=== PATIENT | female | born 1980 | race Caucasian/White ===

== ENCOUNTER 2018-01-11 08:31 | Emergency (ER) | payer OTHER, SELFPAY ==
[2018-01-11 08:32] VITALS: BP 153/87; PULSE 97; RESP 20; TEMP 36.7; O2SAT 99; BMI 27.4
[2018-01-11] MEDS: HYDROcodone Bitartrate/Apap 5/325 Tablet PO (08:55)
--- NOTE | 2018-01-11 09:46 | ED.DCSUM_ITS ---
- ER Visit Summary Date of Service: 01/11/18 Chief Complaint: [Sore throat] History of Present Illness: The patient is a 37 F [presents to the emergency department chief complaint of a sore throat that started 3 days ago. Patient states that she started with a cough 4 days ago. Patient denies any fever. Patient describes pressure in her ears. Patient tells me that 2 of her children had influenza couple weeks ago and one of her children had strep throat. Cough is productive of mostly clear sputum.] Physical Examination: [HEENT-PERRLA, EOMI. Cranial nerves II through XII grossly intact. TMs clear. Mucous membranes moist. No adenopathy. Mild pharyngeal erythema without evidence of exudates. No trismus. No stridor. Cardiovascular-regular rate and rhythm without murmur or ectopy Lungs-clear to auscultation, chest wall stable without crepitus or subcu emphysema Abdomen-normoactive bowel sounds, soft, nontender, no rebound or rigidity, no peritoneal signs. Extremities-intact ?4, normal range of motion, normal pulses, atraumatic] Test Results: [Rapid strep screen was negative] Emergency Department Course and Treatment: [Patient was medicated with Decadron and Phoenix] Treatment Plan: [Will be given a prescription for Phoenix for pain.] Disposition: [Discharged to home in stable condition. Patient advised to return if difficulty swallowing own secretions, difficulty breathing, or condition should worsen in any way.] Impression: [Viral pharyngitis] This note was generated with [employer] dictation software. It may contain incorrect words, spelling, and punctuation that were not noted in review of the chart prior to signing ED Disposition - Plan for ED Patient: Chief Complaint: Sore Throat Referrals: Care Physician,No Primary [Primary Care Provider] -
--- NOTE | 2018-01-11 09:48 | DCINST.ED_ITS ---
ED Disposition - Plan for ED Patient: Chief Complaint: Sore Throat Instructions: ED Pharyngitis Viral Prescriptions: Hydrocodone Bitart/Apap 5-325 [[place] 5/325] 1 - 2 tab PO Q4H PRN PRN 3 Days #12 tab PRN Reason: Pain Referrals: Care Physician,No Primary [Primary Care Provider] - Luis Fernando Gary III, MD [STAFF PHYSICIAN] - 3-5 Days
== END 2018-01-11 10:14 | disposition home or self-care (01) ==
PROVIDERS: Emergency Provider Emergency Medicine
DX: J02.9 Acute pharyngitis, unspecified (principal); Z72.0 Tobacco use
CPT/HCPCS: 87880; 99283

== ENCOUNTER 2022-02-10 15:41 | Emergency (ER) | payer SELFPAY ==
[2022-02-10 15:42] VITALS: BP 153/88; PULSE 70; RESP 16; TEMP 36; O2SAT 98; BMI 29.7
--- NOTE | 2022-02-10 16:00 | ED.VIS.FALL ---
HPI HPI - Fall History of Present Illness Chief Complaint: Fall Informant: patient Occured/Mechanism Occurred: Days (2) Mechanism/Context: Yes same level fall Narrative: Syncopal episode after standing Pain/Injury Location: Head Pain Location: head Quality of Pain: Dull Current Severity: Mild Maximum Severity: Mild Worsened by: Nothing Relieved by: Nothing Associated Symptoms Associated Symptoms: Negative for Parasthesias, Weakness, Loss of function, Inability to ambulate, Loss of consciousness and Amnesia Narrative Narrative: Patient presents with a syncopal episode that occurred 2 days ago. Patient states she stood up from the couch where she was laying down. Patient states she felt lightheaded. Patient fell backwards and hit her head. Patient thinks she was only unconscious for a few seconds. Patient states she has pain in the occipital part of her head as well as the frontal part of her head. Patient describes it as dull and mild. Patient states nothing makes it better nothing makes it worse. Patient denies any paresthesias or weakness. Patient denies any other injuries. PFSH PFSH Medical History no medical history no medical history Home Medications hydrocodone-acetaminophen 1 - 2 tab PO Q4H PRN PRN 3 Days #12 tab 01/11/18 [Rx Last Taken Unknown] Allergy/AdvReac Type Severity Reaction Status Date / Time No Known Allergies Allergy Verified 01/11/18 08:37 Surgical History (Updated 02/10/22 @ 16:[address] Marcos Fuller DO) H/O section Social History Smoking Status: Light Smoker (<10/day) ROS ROS ED Constitutional Constitutional ED: Denies chills or fever(s) Eyes Eyes: Denies blurry vision or change in vision ENT ENT ED: Denies rhinorrhea or sore throat Cardiovascular Cardiovascular: Denies chest pain or palpitations Respiratory/Chest Respiratory/Chest: Denies cough or dyspnea Gastrointestinal Gastrointestinal: Denies nausea or vomiting Genitourinary Genitourinary ED: Denies dysuria or hematuria Musculoskeletal Musculoskeletal: Denies back pain or neck pain Integumentary Denies abscess or rash Neurologic Neurologic: Reports headache(s); Denies weakness Allergic/Immunologic Allergic/Immunologic ED: Denies mouth swelling or urticaria EXAM Physical Exam Const Vital Signs: 02/10/22 15:42 02/10/22 15:49 Temperature 96.8 F L Temperature Source Temporal Pulse Rate 70 Respiratory Rate 16 Respiratory Effort Normal Respiratory Depth Normal Respiratory Pattern Normal Blood Pressure 153/88 H Blood Pressure Mean 109 Pulse Ox 98 Oxygen Delivery Method Room Air Room Air Positive well nourished and well developed General Appearance ED: well developed HEENT Reports moist mucous membranes HEENT Narrative: There is mild tenderness over the occiput. There is no bony crepitance or step-off. There is no edema or ecchymosis. There is no hematoma noted. tenderness Neck supple and no JVD Resp normal respiratory effort and clear to auscultation bilaterally Cardio regular rate, regular rhythm and no murmurs GI normal to inspection, nondistended, normoactive bowel sounds and non-tender Palpation: soft Extremity normal to inspection General Extremety ED: Negative for edema or tenderness General Extremity: Negative for edema Neuro oriented x3, CN's II-XII intact bilaterally and no sensory deficits noted Sensorium / Orientation: alert Motor Exam: strength 5/5 throughout Psych mental status grossly normal Skin no rashes or lesions noted MDM MDM MDM Narrative Medical decision making narrative: EKG was obtained. On my interpretation, it showed a normal sinus rhythm with a rate of 66. OH interval, QRS interval, and QTc intervals were all normal. [place] was normal. There are no acute ST or T wave changes. CT scan of the brain was obtained. There is no acute intracranial abnormality. This was interpreted by the radiologist and reviewed by myself. CBC was within normal limits. Comprehensive metabolic profile was within normal limits. Patient feels better on reevaluation. Patient wants to go home. Patient will be instructed to follow-up with her primary care physician in 5 to 7 days for reevaluation. Patient was instructed to drink plenty of fluids. Patient understood and was agreeable with the plan. All questions were answered. Lab Data Attestation: I reviewed the patient's lab results. Labs: Laboratory Results - last 24 hr 02/10/22 02/10/22 16:15 16:15 WBC 9.4 RBC 4.56 Hgb 14.5 Hct 41.7 MCV 91.4 MCH 31.8 MCHC 34.8 RDW Std Deviation 44.0 H RDW Coeff of [place] 13.0 Plt Count 248 MPV 10.3 Immature Gran % (Auto) 0.300 Neut % (Auto) 66.2 Lymph % (Auto) 23.5 Burt % (Auto) 8.3 Eos % (Auto) 1.4 Baso % (Auto) 0.3 Absolute Neuts (auto) 6.2 Absolute Lymphs (auto) 2.21 Nucleated RBC % 0 Sodium 140 Potassium 3.6 Chloride 110 H Carbon Dioxide 25.0 Anion Gap 5 BUN 15 Creatinine 0.85 Estim Creat Clear Calc 75.21 Est GFR (MDRD) Af Amer 95 Est GFR (MDRD) Non-Af 79 BUN/Creatinine Ratio 17.7 Glucose 80 Calcium 9.2 Total Bilirubin 0.30 AST 14 L ALT 21 Alkaline Phosphatase 63 Total Protein 7.4 Albumin 4.1 Globulin 3.3 Albumin/Globulin Ratio 1.2 Radiography Diagnostic Testing: Clinical Impression(s) from Imaging Studies Brain CT 02/10/22 16:03 IMPRESSION: Normal unenhanced CT scan of the brain. Electronically Signed: Mateo Marx MD (Brooks) at 16:39 EDT Reading Location ID and State: [address] [place] [address] , Service support , EKG Initial EKG: Attestation: I personally reviewed and interpreted this EKG as follows: Interpretation: Sinus Rhythm (66) and No Acute Injury Pattern Discharge Plan Triage Chief Complaint: Fall ED Provider: Marcos Fuller Dx/Rx/DC Orders Clinical Impression: Syncope, Headache Instructions: ED Fainting, Uncertain Cause Prescriptions: No Action hydrocodone-acetaminophen 1 TABLET tablet 1 - 2 tab PO Q4H PRN PRN (Reason: Pain) 3 Days Qty: 12 RF: 0 Primary Care Provider: Tamir Read Referrals: Tamir Read MD [Primary Care Provider] - 5-7 Days Disposition Disposition: Home, Self Care
--- NOTE | 2022-02-10 16:03 | CT_ITS ---
STUDY: CT BRAIN WITHOUT CONTRAST REASON FOR EXAM: Female, 41 years old. Syncope RADIATION DOSAGE (If Supplied By Facility): CTDIvol = ( 44.99 ) mGy, DLP = ( 762.36 ) mGycm TECHNIQUE: Transaxial CT imaging of the brain was performed without administration of intravenous contrast material. Individualized dose optimization techniques were used for this CT. COMPARISON: No relevant priors. FINDINGS: Normal soft tissue structures. Normal calvarium. Normal size ventricles and extra-axial spaces for the patient''s age. Normal white matter tracts of the cerebral hemispheres. Normal basal ganglia and thalami. Normal brainstem. Normal cerebellum. There is no intracranial hemorrhage. There are no findings of an acute ischemic infarction. Normal visualized paranasal sinuses. CT/Brain/Head without Contrast IMPRESSION: Normal unenhanced CT scan of the brain. Electronically Signed: Mateo Marx MD (Brooks) at 16:39 EDT Reading Location ID and State: [address] [place] , Service support ,
--- NOTE | 2022-02-10 16:03 | EKG12_ITS ---
Test Reason : FALL Blood Pressure : / mmHG Vent. Rate : 066 BPM Atrial Rate : 066 BPM P-R Int : 110 ms QRS Dur : 096 ms QT Int : 406 ms P-R-T Axes : 070 058 050 degrees QTc Int : 425 ms Sinus rhythm with sinus arrhythmia with short DC Otherwise normal ECG Confirmed by CHARI JONES, SHEYLA ([id number]), makeup editor GINA SIMMS ([id number]) on 02/13/2022 8:55:40 AM Referred By: LUIS Confirmed By:SHEYLA MARCELINO MD
--- NOTE | 2022-02-10 16:12 | NURSING ---
NO OLD EKGS
[2022-02-10 16:25] LABS: Absolute Lymphocyte Count 2.21 X10^3/uL (0.83-4.51); Absolute Neutrophil Count 6.2 X10^3/uL (2.0-7.7); Basophil# 0.03 X10^3/uL; Basophil% 0.3 % (0-1); Eosinophil# 0.13 X10^3/uL; Eosinophils% 1.4 % (0-5); Hematocrit 41.7 % (37-47); Hemoglobin 14.5 g/dL (12.0-15.0); Lymphocyte # 2.21 X10^3/ul (0.83-4.51); Lymphocyte % 23.5 % (19-41); Mean Corp Hgb Conc 34.8 g/dL (32-36); Mean Corpuscular Hgb 31.8 pg (27.0-32.0); Mean Corpuscular Volume 91.4 fL (81-99); Mean Platelet Vol. 10.3 fl (6.2-12.0); Monocyte# 0.78 X10^3/uL; Monocyte% 8.3 % (0-10); NRBC Flagged by Analyzer 0 % (0-5); Neutrophil # 6.23 X10^3/uL (2.7-7.7); Neutrophil % 66.2 % (47-70); Platelet Count 248 K/mm3 (150-450); Red Blood Count 4.56 M/mm3 (4.2-5.4); White Blood Count 9.4 K/mm3 (4.4-11.0)
[2022-02-10 16:40] LABS: ALB/GLOB Ratio 1.2 RATIO (0.9-2.4); AST(SGOT) 14 U/L (15-37); Alanine Aminotransfer ALT/SGPT 21 U/L (13-56); Albumin, Serum 4.1 g/dL (3.2-5.0); Alkaline Phosphatase 63 U/L (45-117); Anion Gap 5 (5-15); BUN 15 mg/dL (7-18); BUN/Creat Ratio 17.7 RATIO (10-20); Calcium,Total 9.2 mg/dL (8.5-10.1); Chloride 110 mmol/L (98-107); Creatinine, Serum 0.85 mg/dL (0.55-1.02); EST Glomerular Filtration Rate 79 mL/min (>60); Est Glom Filt Rate - Afr Amer 95 mL/min (>60); Estimated Creatinine Clearance 75.21 ml/min; Globulin 3.3 g/dL (2.2-4.2); Glucose 80 mg/dL (74-106); Potassium 3.6 mmol/L (3.5-5.1); Protein, Total 7.4 g/dL (6.4-8.2); Sodium Level 140 mmol/L (136-145)
[2022-02-10 17:30] VITALS: BP 132/89; PULSE 78; RESP 16; O2SAT 98
== END 2022-02-10 17:31 | disposition home or self-care (01) ==
PROVIDERS: Emergency Provider Emergency Medicine; PCP Family Medicine; Visit Provider Emergency Medicine
DX: R55 Syncope and collapse (principal); R51.9 Headache, unspecified; F17.200 Nicotine dependence, unspecified, uncomplicated
CPT/HCPCS: 70450; 80053; 85025; 93005; 99285; A4216

== ENCOUNTER 2025-09-13 22:33 | Emergency (ER) | payer OTHER, SELFPAY ==
[2025-09-13 22:33] VITALS: BP 175/100; PULSE 89; RESP 18; TEMP 37.1; O2SAT 100; BMI 24.0
--- NOTE | 2025-09-13 22:55 | EKG12_ITS ---
Test Reason : CP Blood Pressure : */* mmHG Vent. Rate : 64 BPM Atrial Rate : 64 BPM P-R Int : 120 ms QRS Dur : 96 ms QT Int : 396 ms P-R-T Axes : 63 48 54 degrees QTcB Int : 408 ms Normal sinus rhythm Possible Left atrial enlargement Borderline ECG Confirmed by ALVIN CASTILLO ([id number]), visual effects editor JOSE VELA ([id number]) on 09/17/2025 6:32:56 AM Referred By: BB Confirmed By: ALVIN CASTILLO
--- NOTE | 2025-09-13 23:00 | ED.VIS.CHEST ---
HPI History of Present Illness Chief Complaint: Chest Pain Informant: patient Narrative Narrative: Patient is a 45-year-old female with a history of HTN presenting with upper abdominal pain, dyspnea, dizziness, and emesis. - Reports onset of symptoms today, initially experiencing upper abdominal pain radiating to the spine, described as a heavy sensation. - Pain began around 1230 when she lied down attempting to nap; associated with dyspnea described as like an elephant was sitting on my chest. - Denies recent significant food intake prior to symptom onset, only consuming a small snack earlier in the morning. - Symptoms persisted for several hours, subsiding around [id number], then recurred around 2000 after dinner. - Associated with two episodes of emesis, the first occurring shortly after symptom onset and the second a few hours later. - Experienced dizziness described as like getting off an elevator while driving, leading to a sensation of losing control of the vehicle; denies ear pain or symptoms. - Recent illness beginning Wednesday, evaluated at urgent care yesterday with symptoms of severe sore throat, chest burning, and cough; strep test negative, prescribed prednisone but did not take it. Denies history of asthma. - Reports improvement in illness symptoms, with only a mild residual cough. - Recent echocardiogram stress test on August 29 reportedly showed a weak mitral valve with some backflow, but no significant concerns noted. Per pt, done because she was having episodes of high BP. - Medications include lisinopril and Adderall. - Occasional smoker; denies cocaine use. - Denies family history of heart problems in first-degree relatives under 55 years old. CVD Risk Factors: Positive for Hypertension and Smoking; Negative for Diabetes, Hypercholesterolemia or Family History 1' </=55 [facility] Home Medications ?Medication ?Instructions ?Recorded ?Last Taken ?Type benzonatate 100 mg capsule 100 mg PO TID PRN PRN cough 09/13/25 Unknown History dextroamphetamine-amphetamine 10 1 tab PO BID 09/13/25 09/13/25 History mg tablet lisinopril 5 mg tablet 5 mg PO DAILY 09/13/25 09/12/25 History ondansetron 8 mg disintegrating 8 mg PO Q8H PRN nausea and 09/14/25 Unknown Rx tablet vomiting #20 tabs pantoprazole 40 mg tablet,delayed 40 mg PO DAILY #14 tabs 09/14/25 Unknown Rx release Allergy/AdvReac Type Severity Reaction Status Date / Time No Known Allergies Allergy Verified 09/13/25 22:34 Family History no significant family his Surgical History H/O section Surgical History no surgical history Social History Smoking Status: Light Smoker (<10/day) ROS ROS ED Constitutional Constitutional ED: Denies chills or fever(s) Eyes Eyes: Denies change in vision or diplopia ENT ENT ED: Reports disequillibrium, dizziness, nasal congestion and sore throat; Denies ear pain, rhinorrhea or tinnitus Cardiovascular Cardiovascular: Reports as per HPI and chest pain; Denies palpitations Respiratory/Chest Respiratory/Chest: Reports cough and dyspnea; Denies sputum Gastrointestinal Gastrointestinal: Reports abdominal pain, nausea and vomiting; Denies diarrhea Genitourinary Genitourinary ED: Denies dysuria or hematuria Musculoskeletal Musculoskeletal: Denies back pain or neck pain Integumentary Denies abscess or rash Neurologic Neurologic: Denies headache(s), paresthesias or weakness Psychiatric Psychiatric: Denies suicidal thoughts EXAM Physical Exam Const Vital Signs: 09/13/25 22:33 09/13/25 22:59 09/13/25 23:00 Temperature 98.8 F Temperature Source Oral Pulse Rate 89 Respiratory Rate 18 Respiratory Effort Normal Non-Labored Blood Pressure 175/100 H Blood Pressure Mean 125 Pulse Ox 100 Oxygen Delivery Method Room Air Room Air 09/14/25 00:01 09/14/25 00:15 09/14/25 00:30 Temperature Temperature Source Pulse Rate 74 63 74 Respiratory Rate 19 H 19 H 16 Respiratory Effort Blood Pressure 136/90 H 145/105 H Blood Pressure Mean 105 119 Pulse Ox Oxygen Delivery Method 09/14/25 00:45 09/14/25 01:00 Temperature Temperature Source Pulse Rate 64 Respiratory Rate 16 Respiratory Effort Blood Pressure 151/102 H Blood Pressure Mean 118 Pulse Ox Oxygen Delivery Method Positive well nourished and well developed General Appearance ED: well developed and NAD HEENT Reports moist mucous membranes normocephalic and atraumatic Eyes PERRL and EOMs intact bilaterally Neck full ROM and supple Resp normal respiratory effort and clear to auscultation bilaterally Cardio regular rate, regular rhythm and no murmurs GI non-tender and non-distended Auscultation: normoactive bowel sounds Palpation: soft Back/Spine no CVA tenderness General Back: other FROM Extremity normal to inspection General Extremety ED: Negative for edema, pulses abnormal or tenderness General Extremity: Negative for edema or pulses abnormal Neuro oriented x3, CN's II-XII intact bilaterally and no sensory deficits noted Sensorium / Orientation: awake and alert Motor Exam: strength 5/5 throughout Skin no rashes or lesions noted and no wounds Heart Score History: Slightly/Non-Suspicious ECG: Normal Age: </= 45 years Risk Factors: 1 or 2 Risk Factors Score: 1 MDM MDM MDM Narrative Medical decision making narrative: The chest x-ray on this patient is normal in my interpretation, and radiology confirms. Her EKG is normal, and her troponin is normal at less than 6, which is reassuring. She has no leukocytosis; blood counts, chemistries, and liver enzymes are normal, but her lipase is slightly elevated at 92, of undetermined significance. She is not having any epigastric tenderness at this time. 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 She reports occasional alcohol use, with her last drink 5 or 6 days ago, which I do not believe is related to this episode. On my bedside ultrasound, she does not have a sonographic Boone?s sign. The gallbladder wall is grossly normal, and there is no pericholecystic fluid. However, there is a white, circular, echogenic, intraluminal gallbladder abnormality that does not shadow, which may be consistent with a polyp. She should likely have an outpatient ultrasound, but I do not think she needs one emergently. Seeing no stones and no hyperbilirubinemia, it is unlikely she has acute gallstone pancreatitis. This slightly elevated lipase is nonspecific and not necessarily indicative of acute pancreatitis. It may be related to vomiting and could suggest a primary GI issue. I do not think she requires additional emergent studies at this time. She is otherwise doing well and does not need admission. With regards to her recent URI that she was placed on cough medicine for her, I do not think that is necessarily related to any of this and she does not have pneumonia. With regards to the dizziness I examined her ears and they are normal, she sat up in bed and has no symptoms of dizziness. It sounded like disequilibrium to me. It was intermittent, not likely central in etiology, and not present while in the emergency department. I propose treating her for possible intraluminal disease with a two-week course of pantoprazole and providing antiemetics as needed. In case this is pancreas-related, I recommend a 48-hour clear liquid diet and close outpatient follow-up with her doctor. I discussed this plan with her, and she is comfortable with it. Lab Data Attestation: I reviewed the patient's lab results. Labs: Laboratory Results - last 24 hr 09/13/25 09/13/25 23:15 23:28 WBC 5.8 RBC 5.05 Hgb 16.2 H Hct 46.4 MCV 91.9 MCH 32.1 H MCHC 34.9 RDW Std Deviation 42.9 RDW Coeff of [place] 12.8 Plt Count 204 MPV 10.5 Immature Gran % (Auto) 0.200 Neut % (Auto) 43.5 L Lymph % (Auto) 39.4 [place] % (Auto) 13.1 H Eos % (Auto) 2.9 Baso % (Auto) 0.9 Absolute Neuts (auto) 2.5 Absolute Lymphs (auto) 2.28 Nucleated RBC % 0 Sodium Cancelled 138 Potassium Cancelled 3.6 Chloride Cancelled 102 Carbon Dioxide Cancelled 22.8 Anion Gap Cancelled 13 BUN Cancelled 11 Creatinine Cancelled 0.77 Estim Creat Clear Calc Cancelled 79.67 Est GFR (MDRD) Non-Af Cancelled 97 BUN/Creatinine Ratio Cancelled 14.8 Glucose Cancelled 85 Calcium Cancelled 9.8 Total Bilirubin Cancelled 0.63 AST Cancelled 27 ALT Cancelled 20 Alkaline Phosphatase Cancelled 64 Troponin T High Sens Cancelled < 6 Total Protein Cancelled 7.7 Albumin Cancelled 4.5 Globulin Cancelled 3.1 Albumin/Globulin Ratio Cancelled 1.4 Lipase Cancelled 92 H Radiography Diagnostic Testing: Clinical Impression(s) from Imaging Studies Chest X-Ray 09/13/25 23:35 IMPRESSION: NO ACUTE FINDINGS. Reading Location: [facility] Rhythm Strip Rhythm Strip: Sinus Rhythm Rate: 64 Ectopy: None EKG Initial EKG: Attestation: I personally reviewed and interpreted this EKG as follows: Interpretation: Sinus Rhythm and No Acute Injury Pattern Comments: Nml axis & intervals; nml EKG Discharge Plan Triage Chief Complaint: Chest Pain ED Provider: Michelet Weaver Dx/Rx/DC Orders Clinical Impression: Acute epigastric pain, Elevated lipase, Dizziness, Nausea and vomiting, Chest pain due to GERD, Viral URI with cough Instructions: ED Dizziness, Uncertain Cause, ED Epigastric Pain Uncertain Cause, ED Full Liquid Diet Prescriptions: New ondansetron 8 mg tablet,disintegrating 8 mg PO Q8H PRN (Reason: nausea and vomiting) Qty: 20 0RF pantoprazole 40 mg tablet,delayed release (DR/EC) 40 mg PO DAILY Qty: 14 0RF No Action dextroamphetamine-amphetamine 10 mg tablet 1 tab PO BID benzonatate 100 mg capsule 100 mg PO TID PRN PRN (Reason: cough) lisinopril 5 mg tablet 5 mg PO DAILY Primary Care Provider: Tamir Read Referrals: Tamir Read MD [Primary Care Provider, [facility]] - As soon as possible Activity Restrictions/Additional Instructions: - Start pantoprazole daily for two weeks to help reduce stomach acid and hopefully ease your discomfort. - Use your prescribed anti-nausea medicine as needed if you feel sick to your stomach. - Follow a liquid diet for the next 48 hours to rest your digestive system. Avoid alcohol until these symptoms resolve. - Schedule an outpatient abdominal ultrasound (see your doctor) soon to check the small gallbladder finding seen on your bedside scan. - Follow up with your primary doctor in the coming days to review your symptoms, test results, and next steps. Print Language: Kinyarwanda Disposition Disposition: Home, Self Care
[2025-09-13] MEDS: Lidocaine 2% Viscous15 ML UDC 15 ML PO (23:04)
--- NOTE | 2025-09-13 23:35 | RAD_ITS ---
PROCEDURE: CHEST PA AND LATERAL 09/13/2025 REASON FOR EXAM: CHEST PAIN TECHNIQUE: Procedure Code: RADCXR Modality: DX Procedure: CHEST PA AND LATERAL COMPARISON: None available. FINDINGS: Hardware: None. Heart: The heart size is normal. Mediastinum: The mediastinal contour is unremarkable. Lungs: The lungs are clear. No pneumothorax or pleural effusion. Bones: The bones are unremarkable. RAD/Chest PA and Lateral IMPRESSION: NO ACUTE FINDINGS. Reading [facility]
[2025-09-13 23:54] LABS: Hematocrit 46.4 % (37-47); Hemoglobin 16.2 g/dL (12.0-15.0); Immature Granulocytes Count 0.010 X10^3/uL (0.0-0.0); Mean Corp Hgb Conc 34.9 g/dL (32-36); Mean Corpuscular Volume 91.9 fL (81-99); Mean Platelet Vol. 10.5 fl (6.2-12.0); NRBC Flagged by Analyzer 0 % (0-5); Platelet Count 204 K/mm3 (150-450); RBC Distribution Width CV 12.8 % (11.6-14.6); RBC Distribution Width SD 42.9 fl (35.1-43.9); Red Blood Count 5.05 M/mm3 (4.2-5.4); White Blood Count 5.8 K/mm3 (4.4-11.0)
[2025-09-14 00:01] VITALS: BP 136/90; PULSE 74; RESP 19
[2025-09-14 00:15] VITALS: BP 145/105; PULSE 63; RESP 19
--- OUTSIDE RECORDS SUMMARY | 2025-09-14 00:16 | XMS RPT_ITS | CCD ---
Author Organization [facility] Care Team Providers Care Briar Cutter Name Role Phone Kelly Read MD Primary Care Provider Kelly Read MD Primary Care Provider Alec [employer].Kimberli MARTINI Unavailable Shay [employer].Pb MARTINI Unavailable [phone] YURI PULIDOANDA LUIGI Referring Unavailable KELLY READ Primary Care Unavailable KELLY READ Primary Care Unavailable KELLY PERRIN Attending Unavailable KELLY READ Primary Care Unavailable RENETTA HANCOCK Attending Unavailable RENETTA HANCOCK Attending Unavailable KELLY READ Primary Care Unavailable KELLY READ Primary Care Unavailable TESS, HEATHER Attending Unavailable TESS, HEATHER Referring Unavailable KELLY READ Primary Care Unavailable KELLY READ Primary Care Unavailable RENETTA HANCOCK Attending Unavailable RENETTA HANCOCK Referring Unavailable TESS, HEATHER Referring Unavailable KELLY READ Primary Care Unavailable TESS HEATHER Attending Unavailable KELLY READ Primary Care Unavailable KELLY READ Primary Care Unavailable MELONY MENDEZ Attending Unavailable KELLY READ Referring Unavailable KELLY READ Primary Care Unavailable KELLY READ Primary Care Unavailable KELLY READ Primary Care Unavailable KELLY READ Primary Care Unavailable RENETTA HANCOCK Referring Unavailable KELLY READ Primary Care Unavailable RENETTA HANCOCK Attending Unavailable KELLY READ Primary Care Unavailable RENETTA HANCOCK Attending Unavailable KELLY READ Primary Care Unavailable KELLY READ Primary Care Unavailable FARZANA MAK Attending Unavail able Medications Current Medications Medication Drug Class(es) Dates Sig (Normalized) Sig (Original) acetaminophen 325 mg / HYDROcodone bitartrate 5 mg oral tablet (1 source) Opioid Agonist Start: 01-11-2018 take 1 tablet by mouth every four hours as needed Hydrocodone-Aceta minophen Active 1 - 2 TABLET PO EVERY 4 HOURS NEEDED 12 3 January 11, 2018 10:47am amoxicillin 875 mg oral tablet (1 source) Penicillin-class Antibacterial Start: 11-27-2022 End: 12-04-2022 take 1 tablet by mouth twice daily amoxicillin (AMOXIL) 875 mg tablet Take 1 tablet by mouth twice daily for 7 days. 14 tablet 0 11/27/2022 12/04/2022 Active Comment on above: Take 1 tablet by akira th twice daily for 7 days. hydrOXYzine hydrochloride 25 mg oral tablet (20 sources) Antihistamine Start: 01-10-2025 End: 02-09-2025 take 1 tablet by mouth every twenty-four hours as needed hydrOXYzine HCl (ATARAX) 25 mg tablet Take 1 tablet by mouth at bedtime as needed for anxiety (sleep issues). 30 tablet 01/10/2025 02/09/2025 Active Start: 10-11-2024 End: 12-10-2024 take 0.5 tablet by mouth once daily at bedtime hydrOXYzine HCl (ATARAX) 25 mg tablet Take 0.5 tablets by mouth daily at bedtime. 30 tablet 1 10/11/2024 12/10/2024 Active Start: 09-18-2024 End: 11-17-2024 take 1 tablet by mouth once daily at bedtime hydrOXYzine HCl (ATARAX) 25 mg tablet Take 1 tablet by mouth daily at bedtime. 30 tablet 1 09/18/2024 10/11/2024 Discontinued (Adjust Sig - Block E-Cancel) Start: 06-02-2022 End: 08-09-2024 take 1 capsule by mouth every eight hours as needed hydrOXYzine pamoate (VISTARIL) 25 mg capsule Take 1 capsule by mouth three times daily as needed for anxiety. 30 capsule 5 06/02/2022 08/09/2024 Discontinued Start: 05-14-2021 End: 06-02-2022 take 1 tablet by mouth every six hours as needed for anxiety hydrOXYzine HCl (ATARAX) 25 mg tablet Indications: Anxiety and depression Take 1 tablet by mouth every 6 hours as needed for anxiety. 20 tablet 5 05/14/2021 06/02/2022 Discontinued Comment on above: Take 1 tablet by akira every 6 hours as needed for anxiety. Take 1 capsule by mo [facility] three times daily as needed for anxiety. levonorgestrel 0.979402 mg/hr intrauterine system (20 sources) Progestin, Progestin-containing Intrauterine Device Start: End: levonorgestrel (MIRENA) 20 mcg/24 hours (5-6 yrs) 52 mg IUD Indications: Encounter for IUD insertion 1 Each by INTRAUTERINE route as directed. 1 Each 03/25/2021 03/24/2026 Active Comment on above: 1 Each by INTRAUTERI NE route as directed. lisinopril 5 mg oral tablet (2 sources) Angiotensin Converting Enzyme Inhibitor Start: End: take 1 tablet by mouth once daily lisinopril (ZESTRIL) 5 mg tablet Indications: Elevated BP without diagnosis of hypertension Take 1 tablet by mouth once daily. 30 tablet 2 07/19/2025 10/17/2025 Active mupirocin 0.02 mg/mg topical ointment (2 sources) RNA Synthetase Inhibitor Antibacterial Start: End: mupirocin (BACTROBAN) 2 % ointment Apply to affected area three times a day for 5 days. 30 g 09/29/2024 10/04/2024 Active triamcinolone acetonide 1 mg/ml topical cream (2 sources) Corticosteroid Start: End: triamcinolone acetonide (KENALOG) 0.1 % cream Apply 1 application to affected area three times a day for 7 days. Apply sparingly to area for rash/itching. 80 g 09/29/2024 10/06/2024 Active Completed/Discontinued Medications Medication Drug Class(es) Dates Sig (Normalized) Sig (Original) amphetamine aspartate 2.5 mg / amphetamine sulfate 2.5 mg / dextroamphetamine saccharate 2.5 mg / dextroamphetamine sulfate 2.5 mg oral tablet (20 sources) Central Nervous System Stimulant Start: 04-12-2025 End: 08-05-2025 take 1 tablet by mouth once daily dextroamphetamine- amphetamine (ADDERALL) 10 mg tablet Indications: Attention deficit hyperactivity disorder (ADHD), combined type Take 1 tablet by mouth once daily for 30 days. Patient should start on July 06, 2025. 30 tablet 07/06/2025 07/19/2025 Discontinued Start: 04-12-2025 End: 08-05-2025 take 1 capsule by mouth once daily amphetamine-dextroamphetamine XR (ADDERA LL XR) 20 mg capsule Indications: Attention deficit hyperactivity disorder (ADHD), combined type Take 1 capsule by mouth once daily for 30 days. Patient should start on July 06, 2025. 30 capsule 07/06/2025 07/19/2025 Discontinued Start: 02-19-2025 End: 03-21-2025 take 1 tablet by mouth once dextroamphetamine-amphetamine (ADDERALL) 10 mg tablet Indications: Attention deficit hyperactivity disorder (ADHD), combined type Take 1 tablet by mouth every afternoon for 30 days. 30 tablet 02/19/2025 03/21/2025 Active Start: 02-19-2025 End: 03-21-2025 take 1 capsule by mouth once daily in the morning amphetamine-dextroamphetamine XR (ADDERA LL XR) 20 mg capsule Indications: Attention deficit hyperactivity disorder (ADHD), combined type Take 1 capsule by mouth every morning for 30 days. 30 capsule 02/19/2025 03/21/2025 Active Start: 01-10-2025 End: 02-09-2025 take 1 tablet by mouth once dextroamphetamine-amphetamine (ADDERALL) 10 mg tablet Indications: Attention deficit hyperactivity disorder (ADHD), combined type Take 1 tablet by mouth every afternoon for 30 days. 30 tablet 01/10/2025 02/09/2025 Active Start: 10-11-2024 End: 02-09-2025 take 1 capsule by mouth once daily in the morning amphetamine-dextroamphetamine XR (ADDERA LL XR) 20 mg capsule Indications: Attention deficit hyperactivity disorder (ADHD), combined type Take 1 capsule by mouth every morning for 30 days. 30 capsule 12/12/2024 01/10/2025 Discontinued Start: 09-18-2024 End: 10-18-2024 take 1 capsule by mouth once daily in the morning amphetamine-dextroamphetamine XR (ADDERA LL XR) 15 mg capsule Indications: Attention deficit hyperactivity disorder (ADHD), combined type Take 1 capsule by mouth every morning for 30 days. 30 capsule 09/18/2024 10/11/2024 Discontinued 24 hr buPROPion hydrochloride 150 mg extended release oral tablet (7 sources) Aminoketone Start: 08-09-2024 End: 02-05-2025 take 1 tablet by mouth once daily buPROPion XL (WELLBUTRIN XL) 150 mg 24 hr tablet Indications: Anxiety and depression Take 1 tablet by mouth once daily. 30 tablet 5 08/09/2024 09/18/2024 Discontinued (Lack of Efficacy) Start: 01-20-2021 End: 06-02-2022 take 1 tablet by mouth once daily buPROPion XL (WELLBUTRIN XL) 150 mg 24 hr tablet Indications: Anxiety and depression Take 1 tablet by mouth once daily. 30 tablet 11 01/20/2021 06/02/2022 Discontinued Comment on above: [facility] FLUoxetine 40 mg oral capsule (4 sources) Serotonin Reuptake Inhibitor Start: 05-13-20 End: 06-02-20 22 take 1 capsule by mouth once daily FLUoxetine HCl (PROZAC) 40 mg capsule Indications: Anxiety and depression Take 1 capsule by mouth once daily. 30 capsule 11 05/13/2021 06/02/2022 Discontinued Comment on above: Take 1 capsule by mo [facility] once daily. predniSONE 10 mg oral tablet (8 sources) Start: 10-03-20 End: 01-10-20 25 predniSONE (DELTASONE) 10 mg tablet Take 4 tabs daily x 3 days, then 3 tabs x 3 days, 2 tabs x 3 days, then 1 tab x3 days with food. 30 tablet 10/03/2024 01/10/2025 Discontinued (Course of therapy completed) 24 hr venlafaxine 150 mg extended release oral capsule (14 sources) Serotonin and Norepinephrine Reuptake Inhibitor Start: 12-07-19 23 End: 08-09-20 24 take 1 capsule by mouth once daily venlafaxine ER (EFFEXOR XR) 150 mg 24 hr capsule Indications: Anxiety and depression , Poor concentration Take 1 capsule by mouth once daily. 30 capsule 2 12/07/2022 08/09/2024 Discontinued Start: 06-26-2022 End: 12-07-2022 take 1 capsule by mouth once daily venlafaxine ER (EFFEXOR XR) 75 mg 24 hr capsule Indications: Anxiety and depression Take 1 capsule by mouth once daily. 30 capsule 5 06/26/2022 12/07/2022 Discontinued Start: 06-02-2022 End: 06-26-2022 take 1 capsule by mouth once daily venlafaxine ER (EFFEXOR XR) 37.5 mg 24 hr capsule Indications: Anxiety and depression Take 1 capsule by mouth once daily. 30 capsule 5 06/02/2022 06/26/2022 Discontinued Comment on above: Take 1 capsule by mo ut once daily. Problems Active Problems Problem Classification Problem Date Documented Da te Episodic/Chronic Abdominal pain (1 source) Female genital organ symptoms; Translations: [Pelvic and perineal pain] Episodic Administrative/social admission (3 sources) Stress; Translations: [Other specified problems related to psychosocial circumstances] Onset: 08-29-2025 05-07-2025 Episodic Anxiety disorders (20 sources) Mixed anxiety and depressive disorder; Translations: [Anxiety disorder, unspecified] Onset: 12-28-2018 12-28-2018 Chronic Attention-deficit, conduct, and disruptive behavior disorders (9 sources) Attention deficit hyperactivity disorder, combined type; Translations: [Attention-deficit hyperactivity disorder, combined type] 09-18-2024 Chronic Attention-deficit, conduct, and disruptive behavior disorders (1 source) Attention-deficit hyperactivity disorder, combined type; Translations: [Attention deficit hyperactivity disorder (ADHD), combined type] Onset: 08-30-2025 Chronic Contraceptive and procreative management (1 source) Intrauterine contraceptive device in situ; Translations: [Presence of (intrauterine) contraceptive device] Episodic Deficiency and other anemia (1 source) Increased hemoglobin; Translations: [Other hemoglobinopathies] 07-25-2025 Chronic Deficiency and other anemia (1 source) Other hemoglobinopathies; Translations: [Elevated hemoglobin] Onset: 08-20-2025 Chronic E Codes: Adverse effects of medical drugs (2 sources) Adverse reaction to drug; Translations: [Adverse effect of unspecified drugs, medicaments and biological substances, initial encounter] 10-11-2024 Episodic Endometriosis (20 sources) Uterine adenomyosis; Translations: [Endometriosis of uterus] Onset: 03-18-2021 03-18-2021 Chronic Essential hypertension (1 source) Hypertensive disorder 07-19-2025 Chronic Genitourinary symptoms and ill-defined conditions (2 sources) Dysuria; Translations: [Dysuria] 08-11-2024 Episodic Headache; including migraine (1 source) Headache; Translations: [Headache] Episodic Menstrual disorders (20 sources) Dysmenorrhea; Translations: [Dysmenorrhea, unspecified] Onset: 03-18-2021 03-18-2021 Chronic Miscellaneous mental health disorders (1 source) Dream anxiety disorder; 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] 10-11-2024 Chronic Other aftercare (3 sources) Long-term current use of drug therapy; Translations: [Other adjunct faculty for medical terminology (current) drug therapy] 09-18-2024 Episodic Other circulatory disease (1 source) Elevated blood-pressure reading without diagnosis of hypertension; Translations: [Elevated blood-pressure reading, without diagnosis of hypertension] 07-19-2025 Episodic Other circulatory disease (2 sources) Elevated blood-pressure reading, without diagnosis of hypertension; Translations: [Situational hypertension] Onset: 07-20-2025 Episodic Other ear and sense organ disorders (1 source) Hearing loss of right ear; Translations: [Unspecified hearing loss, right ear] Chronic Other gastrointestinal disorders (1 source) Abdominal bloating; Translations: [Abdominal distension (gaseous)] Episodic Other hematologic conditions (1 source) Hematocrit - PCV - high; Translations: [Other abnormality of red blood cells] 07-25-2025 Episodic Other hematologic conditions (1 source) Other abnormality of red blood cells; Translations: [Elevated hematocrit] Onset: 08-20-2025 Episodic Other injuries and conditions due to external causes (1 source) Injury of head; Translations: [Unspecified injury of head, initial encounter] Episodic Other nervous system disorders (2 sources) Poor concentration; Translations: [Attention and concentration deficit] Chronic Other screening for suspected conditions (not mental disorders or infectious disease) (11 sources) Patient encounter status; Translations: [Encounter for screening mammogram for malignant neoplasm of breast] Onset: 10-11-2024 Episodic Other skin disorders (3 sources) Eruption; Translations: [Rash and other nonspecific skin eruption] 09-29-2024 Episodic Other upper respiratory infections (5 sources) Viral upper respiratory tract infection; Translations: [Acute upper respiratory infection, unspecified] Onset: 09-12-2025 Episodic Otitis media and related conditions (2 sources) Acute left otitis media; Translations: [Otitis media, unspecified, left ear] Episodic Residual codes; unclassified (1 source) Flushing; Translations: [Flushing] 08-09-2024 Episodic Residual codes; unclassified (1 source) Difficulty sleeping ; Translations: [Sleep deprivation] 08-09-2024 Episodic Residual codes; unclassified (1 source) Family history of diabetes mellitus; Translations: [Family history of diabetes mellitus] 07-19-2025 Episodic Residual codes; unclassified (1 source) FH: Hypercholesterolemi a; Translations: [Family history of familial hypercholesterolemi a] 07-19-2025 Episodic Residual codes; unclassified (1 source) Family history of familial hypercholesterolemi a; Translations: [Family history of high cholesterol] Onset: 07-20-2025 Episodic Residual codes; unclassified (1 source) Family history of diabetes mellitus; Translations: [Family history of diabetes mellitus] Onset: 07-20-2025 Episodic Syncope (1 source) Syncope; Translations: [Syncope and collapse] Episodic Unclassified (1 source) Long-term current use of drug therapy 05-10-2025 Unclassified (1 source) New Patient Onset: 09-18-2024 Past or Other Problems Problem Classification Problem Date Documented Da te Episodic/Chronic Other aftercare (1 source) Other halfway (current) drug therapy; Translations: [Encounter for long-term (current) use of medications] Onset: 11-13-2024 Episodic Other female genital disorders (20 sources) Enlarged uterus; Translations: [Hypertrophy of uterus] Onset: 03-18-2021 03-18-2021 Episodic Unclassified (1 source) H/O: steroid therapy 07-19-2025 Results Test Name Value Interpretation Reference Range Facility [facility] 09-12-2025 [facility] Office Visit ([facility]) RAJESH [id number]) 1980 F Date Time Provider Department 09/12/25 9:00 AM KELLY PERRIN During your visit today, we recorded the following information about you: Temperature Pulse Respiration Blood pressure 97 degrees 80/minute 16/minute 142/84 Weight 64.3 kg Kelly Perrin PA-C 09/12/2025 9:22 AM Signed [facility] Subjective Rajesh Escoto is a 45 year old female. Patient presents with: Cough: Cough, St, chest congestion, BLACKWOOD and sinus x 3 days Patient is a 45-year-old female who complains of congestion, sore throat, headache and cough that she has been experiencing for the past 3 days. Patient does not know if she has developed a fever but has experienced chills and myalgia. Patient has no history of asthma or COPD and does not smoke. Patient states that her neighbor's children all just tested positive for group A strep in recent days. 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 Cough Associated symptoms include chills, sore throat and myalgias. Review of Systems Constitutional: Positive for chills. HENT: Positive for congestion and sore throat. Respiratory: Positive for cough. Musculoskeletal: Positive for myalgias. All other systems reviewed and are negative. Objective BP 142/84 Pulse 80 Temp 36.1 ?C (97 ?F) (Tympanic) Resp 16 Wt 64.3 kg (141 lb 12.1 oz) LMP 09/15/2024 (Exact Date) SpO2 99% BMI 23.96 kg/m? Physical Exam Vitals and nursing note reviewed. Constitutional: Appearance: Normal appearance. She is normal weight. HENT: Head: Normocephalic and atraumatic. Right Ear: Tympanic membrane, ear canal and external ear normal. Left Ear: Tympanic membrane, ear canal and external ear normal. Nose: Nose normal. Mouth/Throat: Mouth: Mucous membranes are moist. Pharynx: Oropharynx is clear. Posterior oropharyngeal erythema present. Comments: Significant erythema is noted to the posterior pharynx. No exudate or halitosis is noted. Uvula is midline without erythema or edema. No dysphagia is noted and the patient's speech is clear. Eyes: Extraocular Movements: Extraocular movements intact. Conjunctiva/sclera: Conjunctivae normal. Pupils: Pupils are equal, round, and reactive to light. Cardiovascular: Rate and Rhythm: Normal rate and regular rhythm. Pulses: Normal pulses. Heart sounds: Normal heart sounds. Pulmonary: Effort: Pulmonary effort is normal. Breath sounds: Normal breath sounds. Musculoskeletal: Cervical back: Normal range of motion and neck supple. Skin: General: Skin is warm and dry. Capillary Refill: Capillary refill takes less than 2 seconds. Neurological: General: No focal deficit present. Mental Status: She is alert and oriented to person, place, and time. Psychiatric: Mood and Affect: Mood normal. Behavior: Behavior normal. Thought Content: Thought content normal. Judgment: Judgment normal. MDM Physical exam findings as noted above. Rapid strep test is negative. Patient was provided with prescriptions for prednisone 20 mg and Tessalon 100 mg. Supportive care was discussed and the patient verbalizes excellent understanding of same. CLINICAL IMPRESSION: Acute Pharyngitis; Acute URI ASSESSMENT/PLAN: 1. Sore throat - ICD9: 462, ICD10: J02.9 (primary diagnosis) - STREP A MOLECULAR (POC) 2. Acute pharyngitis, unspecified etiology - ICD9: 462, ICD10: J02.9 - PREDNISONE 20 MG TABLET 3. Acute URI - ICD9: 465.9, ICD10: J06.9 - BENZONATATE 100 MG [facility] Amount and/or Complexity of Data Reviewed Clinical lab tests: ordered and reviewed Risk of Complications, Morbidity, and/or Mortality Presenting problems: low Diagnostic procedures: low Management options: florinda Perrin PA-C Allergies As of Date: 09/12/2025 (No Known Allergies) Date Reviewed: 09/12/2025 Reviewed by: Mitali Duron LPN - Fully Assessed Reason for Visit: Cough [28] Cmt: Cough, St, chest congestion, BLACKWOOD and sinus x 3 days Primary Visit Diagnosis:Sore throat [J02.9] Other Visit Diagnoses:Acute pharyngitis, unspecified etiology [J02.9] Acute URI [J06.9] Order(s):STREP A MOLECULAR (POC) [3653908] Order #: [id number] #:[id number] predniSONE (DELTASONE) 20 mg tabletTake 1 tablet by mouth two times a day for 5 days.Disp: 10 tabletRfl: 0 benzonatate (TESSALON PERLE) 100 mg capsuleTake 1 capsule by mouth three times a day as needed for cough for up to 7 days.Disp: 21 capsuleRfl: 0 Prescriptions as of 09/12/2025 - predniSONE (DELTASONE) 20 mg tablet Take 1 tablet by mouth two times a day for 5 days. - benzonatate (TESSALON PERLE) 100 mg capsule Take 1 capsule by mouth three times a day as needed for cough for up to 7 days. - dextroamphetamine-amph etamine (ADDERALL) 10 mg tablet Take 1 tablet by mouth two times a day for 30 days. - lisinopri (more content not included)... Normal [facility] STRESS ECHO TREADMILLon 10-0 STRESS ECHO TREADMILL Stress Numerical Control Tool Programmer Report: Stress Echo [facility] Date of service: 08/29/2025 1:23:24 PM Supervising physician: Thierry Staples MD PATIENT: Name: MRS. RAJESH ESCOTO Age: 45 years Gender: F The supervising physician was in the department and immediately available. Final ------ Echocardiography Report: Stress [facility] Date of service: 08/29/2025 1:23:24 PM Ordering physician: HEATHER PULIDO Exam indication: detection for CAD Technologist: Abida Paez [facility] Interpreting physician: Delaney Monroy MD PATIENT: Name: MRS. RAJESH ESCOTO : 1980 Age: 45 years Gender: F Primary rhythm: sinus. Height: 162.56 cm BSA: 1.68 m Weight: 62.60 kg BMI: 23.7 kg/m Heart rate 62 bpm Blood pressure 142/66 mmHg Color Doppler was utilized to interrogate the cardiac valves assessed and spectral Doppler was utilized to determine the flow velocities and pressure gradients reported in this exam. MEASUREMENTS: Value Indexed Normal Max aortic dimension 3.3 cm Ao < 3.8 Left atrium diameter 2.9 cm (2D) Left atrial volume 22 ml (4ch A-L) 13 ml/m Bella <= 34 LV ID (diastole) 4.9 cm (2D) 2.92 cm/m LV ID (systole) 3.0 cm (2D) 1.81 cm/m IVS, leaflet tips 0.8 cm (2D) Posterior wall thickness 0.9 cm (2D) Left ventricular mass 139 g (2D) 83 g/m LV stroke volume 56 ml (2D biplane) LV end diastolic volume 91 ml (2D biplane) 54.1 ml/m 29<=EDVi<62 LV end systolic volume 35 ml (2D biplane) 20.7 ml/m Ejection Fraction 62 % (2D biplane) EF > 54 FINDINGS: LEFT VENTRICLE The left ventricle is normal in size. Left ventricular systolic function is normal. Normal left ventricular diastolic function. Mitral annular lateral E/e': 7.6. Mitral annular septal E/e': 8.4. Wall Motion: Rest: All scored segments are normal. Stress: All scored segments are normal. RIGHT VENTRICLE The right ventricle is normal in size. LEFT ATRIUM The left atrial cavity is normal in size. RIGHT ATRIUM The right atrial cavity is normal in size. MITRAL VALVE There is trace (trace - 1+) mitral valve regurgitation. There is mild calcification of the anterior mitral leaflet. The pressure half time is 49 msec. The peak mitral E/A ratio is 1.51. The average mitral E/e' ratio is 8.0. The mitral flow deceleration time is 168 msec. TRICUSPID VALVE The tricuspid valve leaflets are structurally normal. There is trace (trace - 1+) tricuspid valve regurgitation. AORTIC VALVE The aortic valve cusps are structurally normal. There is no aortic valve regurgitation. Tricuspid aortic valve. PULMONIC VALVE The pulmonic valve cusps are structurally normal. There is no pulmonic valve regurgitation. AORTA The visualized aorta is normal in size. Measurements - Sinus: 3.3 cm. PULMONARY ARTERIES The pulmonary arteries are normal. INTERVENTRICULAR SEPTUM There is normal motion of the interventricular septum. PERICARDIUM There is no pericardial effusion. STRESS ECHO Peak HR 173 bpm. (99 % MPHR) Peak BP 160 mmHg/90 mmHg. The left ventricular cavity size is unchanged with stress. Rest Stress E/e' average 8.01 7.31 CONCLUSIONS: - Exam indication: detection for CAD - The exercise stress echo was negative for ischemia at 99 % of MPHR (8.7 METS). No regional wall motion abnormality seen at heart rate achieved. - The left ventricle is normal in size. Left ventricular systolic function is normal. EF = 62 5% (2D biplane) Normal left ventricular diastolic function. - The right ventricle is normal in size. - The patient has not had a prior CC echocardiographic exam for comparison. Final ------ Stress ECG Report: Stress Echo [facility] Date of service: 08/29/2025 1:23:24 PM Ordering physician: HEATHER PULIDO librarian specialist: Princess Lara Pick Remover: Rosie Spangler Interpreting physician: Thierry Staples MD Patient name: MRS. RAJESH ESCOTO Age: 45 years Gender: F Height: 162.56 cm BSA: 1.68 m Weight: 62.60 kg BMI: 23.7 kg/m Indication: Palpitations Stress ECG Conclusion: Conclusion: Normal Stress ECG Summary: The patient's resting heart rate was 62 bpm and blood pressure was 142/66 mmHg. The patient exercised according to the Steven protocol. The estimated end-exercise MET level achieved using the FRIEND equation was 8.7, which is within the 50th to 75th percentile for age and sex. The estimated end-exercise MET level achieved using the previous ACSM equation was 10.7. The test was terminated due to general fatigue and the total exercise time was 9 minute (more content not included)... [facility] 08-28-2025 [facility] Telephone (CDLBME) RAJESH ESCOTO ([id number]) 1980 F Date Time Provider Department 08/28/25 ROSIE SPANGLER CDLBME During your visit today, we recorded the following information about you: Rosie Spangler RN 08/28/2025 2:04 PM Signed Spoke with patient regarding reminder for stress test tomorrow and given instructions. Allergies As of Date: 08/28/2025 (No Known Allergies) Date Reviewed: 08/22/2025 Reviewed by: Nicolle Barclay MA - Fully Assessed Reason for Visit: Reminder Call [[id number]] Prescriptions as of 08/28/2025 - busPIRone (BUSPAR) 5 mg tablet Take 1 tablet by mouth three times a day as needed. - lisinopril (ZESTRIL) 5 mg tablet Take 1 tablet by mouth once daily. - levonorgestrel (MIRENA) 20 mcg/24 hours (5-6 yrs) 52 mg IUD 1 Each by INTRAUTERINE route as directed. Problem List As Of Date 08/28/2025 Noted Resolved Anxiety and depression [F41.9, F32.A] 12/28/2018 Adenomyosis [N80.03] 03/18/2021 Enlarged uterus [N85.2] 03/18/2021 Dysmenorrhea [N94.6] 03/18/2021 Menorrhagia with regular cycle [N92.0] 03/18/2021 Encounter Status:Closed by ROSIE SPANGLER on 08/28/25 [facility] CNCOon 08-22-[address] [facility] CNOVon 08-22-2025 CNOV Office Visit (FAMPWS ) RAJESH ESCOTO ([id number]) 1980 F Date Time Provider Department 08/22/25 1:20 PM YURI PULIDOANDA LUGII ROBERTSON During your visit today, we recorded the following information about you: Pulse Blood pressure Weight 95/minute 116/72 63 kg Heather Pulido APRN.REGULATORY SERVICES CONSULTANT 08/22/2025 5:09 PM Addendum This is a 45 year old female who presents today with: The patient is a 45-year-old female with HTN, ADHD, and anxiety disorder, presenting for evaluation of worsening anxiety and management of labile hypertension. 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 - Reports feeling like having a nervous breakdown at work yesterday. - Anxiety is primarily situational, related to work stressors. - Has tried multiple anxiolytics in the past with limited success. - Has used Xanax before, which caused excessive sedation. - Denies current use of anxiolytics. ADHD: - Diagnosed at age 44. - Discontinued Adderall at the beginning of the school year due to concerns about HTN and side effects, including significant weight loss and decreased appetite. - Reports difficulty focusing at work without medication. - Considering trying Strattera, a non-stimulant medication, as recommended by her therapist. Hypertension: - Currently managed with lisinopril. - Reports elevated blood pressure readings at work, with a recent reading of 154/105 mmHg, another one yesterday SBP 190s. - Took an additional dose of lisinopril yesterday to manage elevated blood pressure, which improved later in the day. - Blood pressure readings are generally good at home. Doesn't take the lisinipril every day especially if staying home, says it does cause fatigue PAST MEDICAL HISTORY: PAST MEDICAL HISTORY Diagnosis Date Anxiety PAST SURGICAL HISTORY Procedure Laterality Date SNGL NONE TUBAL LIGATION ALLERGIES Patient has no known allergies. MEDICATIONS Current Outpatient Medications Medication Sig lisinopril (ZESTRIL) 5 mg tablet Take 1 tablet by mouth once daily. levonorgestrel (MIRENA) 20 mcg/24 hours (5-6 yrs) 52 mg IUD 1 Each by INTRAUTERINE route as directed. busPIRone (BUSPAR) 5 mg tablet Take 1 tablet by mouth three times a day as needed. No current facility-administered medications for this visit. FAMILY HISTORY Problem Relation Age of Onset None Mother other (unknown) Father SOCIAL HISTORY[1] REVIEW OF SYSTEMS Constitutional: (+) fatigue Neurological: (+) difficulty concentrating Psychiatric: (+) anxiety See HPI EXAM: BP 116/72 Pulse 95 Wt 63 kg (138 lb 12.8 oz) LMP 09/15/2024 (Exact Date) SpO2 100% BMI 23.46 kg/m? PHYSICAL EXAM: General Appearance: Well appearing, alert, in no acute distress, well-hydrated, well nourished.. Lungs: Lungs clear to auscultation. No wheezing, rhonchi, rales.. Heart: RRR without murmur, gallop, or rubs. No ectopy. ASSESSMENT/PLAN: 1. Situational hypertension - ICD9: 796.2, ICD10: R03.0 (primary diagnosis) - Encouraged dietary sodium restriction/DASH diet - Recommended regular aerobic exercise. - Recommend home blood pressure monitoring, to bring results in on next visit - Goal of BP <130/80 - BUSPIRONE 5 MG TABLET as needed for anxiety which is a main cause or trend of her high BPs - follow up in 4 weeks - Stress treadmill echo 2. Situational anxiety - ICD9: 300.09, ICD10: F41.8 - BUSPIRONE 5 MG TABLET three times daily as needed 3. Work-related stress - ICD9: V62.1, ICD10: Z56.6 - BUSPIRONE 5 MG TABLET three times daily as needed 4. Adult ADHD - ICD9: 314.01, ICD10: F90.9 - continue to follow with therapist, consult with us if needed to manage as well - agree that adderall with the higher Bps is not best option, can look at straterra or other SSRI/SSNI that may help Discussed treatment plan and patient voices understanding. Patient's questions answered appropriately. Medications and potential side effects were discussed and patient voices understanding. Return to the office as scheduled or as needed for worsening/no improvement. Heather Pulido APRN.REGULATORY SERVICES CONSULTANT Recording using [employer] software for draft documentation of the visit was discussed with the patient/authorized counter sales representative; all questions welcomed and answered. Patient/authorized counter sales representative agreed to proceed [1] Social History Tobacco Use Smoking status: Former Current packs/day: 0.00 Types: Cigarettes Quit date: 01/13/2013 Years since quittin.6 Smokeless tobacco: Never Tobacco comments: only social smoker Vaping Use Vaping status: Never Used Substance Use Topics Alcohol use: No Drug use: Heather Mac APRN.REGULATORY SERVICES CONSULTANT 08/22/2025 1:38 PM Signed Take buspar as needed up to three times a day, take your first dose at [facility] (more content not included)... Normal [facility] Hematocrit Auto (Bld) [Volum e fraction]on 08-20-2025 Hematocrit (Bld) [Volume fraction] 43.8 % Normal 36.0-46.0 [facility] Comment on above: Order Comment: Speci men Type: BLOOD SPECIMENOrdering Facility: [facility] Address: [address] [place] [address] Performed By: #### 7 18-7, 4544-3 ####[facility] LABIA [id number] [address] [place] Hgb d-[facility] 08-20-2025 Hemoglobin (Bld) [Mass/Vol] 15.2 g/dL Normal 11.5-15.5 [facility] Comment on above: Order Comment: Speci men Type: BLOOD SPECIMENOrdering Facility: [facility] Address: [address] [place] [address] Performed By: #### 7 18-7, 4544-3 ####[facility] LABIA [id number] [place] [address] [place] 25(OH)D3 SerPl-[facility] 2024 25-hydroxyvitamin D3 [Mass/Vol] 55.8 ng/mL Normal 31.0-80.0 [facility] Comment on above: Order Comment: Speci men Type: BLOOD SPECIMENOrdering Facility: [facility] Address: [address] [place] [address] Performed By: #### 1 989-3 ####[facility] LABIA [id number] [place] [address] [place] CBC W Auto Differential pane l (Bld)on 07-20-2025 Basophils (Bld) [#/Vol] 0.08 10*3/uL Normal <0.11 [facility] Comment on above: Order Comment: Speci men Type: BLOOD SPECIMENOrdering Facility: [facility] Address: [address] [place] [address] Performed By: #### 5 7021-8 ####[facility] [id number] [place] [address] [place] Basophils/100 WBC (Bld) 0.7 % Normal [facility] Comment on above: Order Comment: Speci men Type: BLOOD SPECIMENOrdering Facility: [facility] Address: [address] [place] [address] Performed By: #### 5 7021-8 ####[facility] [id number] [place] [address] [place] Differential cell count method Nom (Bld) Auto Normal [facility] Comment on above: Order Comment: Speci men Type: BLOOD SPECIMENOrdering Facility: [facility] Address: [address] [place] [address] Performed By: #### 5 7021-8 ####[facility] [id number] [place] [address] [place] Eosinophils (Bld) [#/Vol] 0.27 10*3/uL Normal <0.46 [facility] Comment on above: Order Comment: Speci men Type: BLOOD SPECIMENOrdering Facility: [facility] Address: [address] [place] [address] Performed By: #### 5 7021-8 ####[facility] [id number] [place] [address] [place] Eosinophils/100 WBC (Bld) 2.5 % Normal [facility] Comment on above: Order Comment: Speci men Type: BLOOD SPECIMENOrdering Facility: [facility] Address: [address] [place] [address] Performed By: #### 5 7021-8 ####[facility] [id number] [place] [address] [place] Erythrocyte distribution width (RBC) [Ratio] 13.7 % Normal 11.5-15.0 [facility] Comment on above: Order Comment: Speci men Type: BLOOD SPECIMENOrdering Facility: [facility] Address: [address] [place] [address] Performed By: #### 5 7021-8 ####[facility] [id number] [place] [address] [place] Hematocrit (Bld) [Volume fraction] 50.5 % High 36.0-46.0 [facility] Comment on above: Order Comment: Speci men Type: BLOOD SPECIMENOrdering Facility: [facility] Address: [address] [place] [address] Performed By: #### 5 7021-8 ####[facility] [id number] [place] [address] [place] Hemoglobin (Bld) [Mass/Vol] 17.4 g/dL High 11.5-15.5 [facility] Comment on above: Order Comment: Speci men Type: BLOOD SPECIMENOrdering Facility: [facility] Address: [address] [place] [address] Performed By: #### 5 7021-8 ####[facility] [id number] [place] [address] [place] Immature granulocytes (Bld) [#/Vol] 0.04 10*3/uL Normal <0.10 [facility] Comment on above: Order Comment: Speci men Type: BLOOD SPECIMENOrdering Facility: [facility] Address: [address] [place] [address] Performed By: #### 5 7021-8 ####[facility] [id number] [place] [address] [place] Immature granulocytes/100 WBC (Bld) 0.4 % Normal [facility] Comment on above: Order Comment: Speci men Type: BLOOD SPECIMENOrdering Facility: [facility] Address: [address] [place] [address] Performed By: #### 5 7021-8 ####[facility]ASTOliverio [id number] [place] [address] [place] Lymphocytes (Bld) [#/Vol] 1.54 10*3/uL Normal 1.00-4.00 [facility] Comment on above: Order Comment: Speci men Type: BLOOD SPECIMENOrdering Facility: [facility] Address: [address] [place] [address] Performed By: #### 5 7021-8 ####[facility] [id number] [place] [address] [place] Lymphocytes/100 WBC (Bld) 14.2 % Normal [facility] Comment on above: Order Comment: Speci men Type: BLOOD SPECIMENOrdering Facility: [facility] Address: [address] [place] [address] Performed By: #### 5 7021-8 ####[facility] [id number] [place] [address] [place] MCH (RBC) [Entitic mass] 33.0 pg Normal 26.0-34.0 [facility] Comment on above: Order Comment: Speci men Type: BLOOD SPECIMENOrdering Facility: [facility] Address: [address] [place] [address] Performed By: #### 5 7021-8 ####[facility] [id number] [place] [address] [place] MCHC (RBC) [Mass/Vol] 34.5 g/dL Normal 30.5-36.0 [facility] Comment on above: Order Comment: Speci men Type: BLOOD SPECIMENOrdering Facility: [facility] Address: [address] [place] [address] Performed By: #### 5 7021-8 ####[facility] [id number] [place] [address] [place] MCV (RBC) [Entitic vol] 95.8 fL Normal 80.0-100.0 [facility] Comment on above: Order Comment: Speci men Type: BLOOD SPECIMENOrdering Facility: [facility] Address: [address] [place] [address] Performed By: #### 5 7021-8 ####[facility] [id number] [place] [address] [place] Monocytes (Bld) [#/Vol] 0.97 10*3/uL High <0.87 [facility] Comment on above: Order Comment: Speci men Type: BLOOD SPECIMENOrdering Facility: [facility] Address: [address] [place] [address] Performed By: #### 5 7021-8 ####[facility] [id number] [place] [address] [place] Monocytes/100 WBC (Bld) 8.9 % Normal [facility] Comment on above: Order Comment: Speci men Type: BLOOD SPECIMENOrdering Facility: [facility] Address: [address] [place] [address] Performed By: #### 5 7021-8 ####[facility] [id number] [place] [address] [place] Neutrophils (Bld) [#/Vol] 7.95 10*3/uL High 1.45-7.50 [facility] Comment on above: Order Comment: Speci men Type: BLOOD SPECIMENOrdering Facility: [facility] Address: [address] [place] [address] Performed By: #### 5 7021-8 ####[facility] [id number] [place] [address] [place] Neutrophils/100 WBC (Bld) 73.3 % Normal [facility] Comment on above: Order Comment: Speci men Type: BLOOD SPECIMENOrdering Facility: [facility] Address: [address] [place] [address] Performed By: #### 5 7021-8 ####[facility] [id number] [place] [address] [place] Nucleated RBC (Bld) [#/Vol] 10*3/uL Normal <0.01 [facility] Comment on above: Order Comment: Speci men Type: BLOOD SPECIMENOrdering Facility: [facility] Address: [address] [place] [address] Performed By: #### 5 7021-8 ####[facility] [id number] [place] [address] [place] Nucleated RBC/100 WBC (Bld) [Ratio] 0.0 /100 WBC Normal [facility] Comment on above: Order Comment: Speci men Type: BLOOD SPECIMENOrdering Facility: [facility] Address: [address] [place] [address] Performed By: #### 5 7021-8 ####[facility] [id number] [place] [address] [place] Platelet mean volume (Bld) [Entitic vol] 11.1 fL Normal 9.0-12.7 [facility] Comment on above: Order Comment: Speci men Type: BLOOD SPECIMENOrdering Facility: [facility] Address: [address] [place] [address] Performed By: #### 5 7021-8 ####[facility] [id number] [place] [address] [place] Platelets (Bld) [#/Vol] 264 10*3/uL Normal 150-400 [facility] Comment on above: Order Comment: Speci men Type: BLOOD SPECIMENOrdering Facility: [facility] Address: [address] [place] [address] Performed By: #### 5 7021-8 ####[facility] [id number] [place] [address] [place] RBC (Bld) [#/Vol] 5.27 10*6/uL High 3.90-5.20 [facility] Comment on above: Order Comment: Speci men Type: BLOOD SPECIMENOrdering Facility: [facility] Address: [address] [place] [address] Performed By: #### 5 7021-8 ####[facility] [id number] [place] [address] [place] WBC (Bld) [#/Vol] 10.85 10*3/uL Normal 3.70-11.00 [facility] Comment on above: Order Comment: Speci men Type: BLOOD SPECIMENOrdering Facility: [facility] Address: [address] [place] [address] Performed By: #### 5 7021-8 ####[facility] [id number] [place] [address] [place] HbA1c (Bld)on 07-20-2025 Average glucose Estimated from glycated hemoglobin (Bld) [Mass/Vol] 94 mg/dL Normal [facility] Comment on above: Order Comment: Speci men Type: BLOOD SPECIMENOrdering Facility: [facility] Address: [address] [place] [address] Result Comment: eAG: (Estimated average glucose) is a calculated value from HgbA1c and is counter sales representative of the average blood glucose level in the last 2-3 month period. Performed By: #### 5 5454-3 ####[facility] LABCLIA [id number] [place] [address] [place] HbA1c (Bld) [Mass fraction] 4.9 % Normal 4.3-5.6 [facility] Comment on above: Order Comment: Speci men Type: BLOOD SPECIMENOrdering Facility: [facility] Address: [address] [place] [address] Result Comment: Amer ican Diabetes Association guidelines indicate that patients with HgbA1c in the range 5.7-6.4% are at increased risk for development of diabetes, and intervention by lifestyle modification may be beneficial. HgbA1c greater or equal to 6.5% is considered diagnostic of diabetes. Performed By: #### 5 5454-3 ####[facility] LABCLIA [id number] [place] [address] [place] Lipid 1996 panelon 5 Cholesterol [Mass/Vol] 195 mg/dL Normal <200 [facility] Comment on above: Order Comment: Samira unger Type: BLOOD SPECIMENOrdering Facility: [facility] Address: [address] [place] [address] Result Comment: <200 mg/dL, Desirable 200-239 mg/dL, Borderline high >239 mg/dL, High Performed By: #### 2 4331-1 ####[facility] LABCLIA [id number] [place] [address] [place] [facility] [id number] [place], [place] [address] [place] [address] [place] Cholesterol in HDL [Mass/Vol] 57 mg/dL Normal >39 [facility] Comment on above: Order Comment: Samira men Type: BLOOD SPECIMENOrdering Facility: [facility] Address: [address] [place] [address] Result Comment: 40-5 9 mg/dL, Acceptable >59 mg/dL, High: Negative risk factor for coronary heart disease <40 mg/dL, Low: Positive risk factor for coronary heart disease Performed By: #### 2 4331-1 ####[facility] LABCLIA [id number] [address] [id number] [address] Cholesterol in LDL [Mass/Vol] 122 mg/dL High <100 [facility] Comment on above: Order Comment: Speci men Type: BLOOD SPECIMENOrdering Facility: [facility] Address: [address] [place] [address] Result Comment: <100 mg/dL, Optimal 100-129 mg/dL, Near optimal/above optimal 130-159 mg/dL, Borderline high 160-189 mg/dL, High >189 mg/dL, Very high Secondary prevention optimal LDL Cholesterol levels are recommended to be <70 mg/dL LDL cholesterol is calculated using the Carter-NIH equation. Performed By: #### 2 4331-1 ####[facility] LABCLIA [id number] [address] [id number] [place] [address] Cholesterol in LDL/Cholesterol in HDL [Mass ratio] 2.14 {ratio} Normal <2.54 [facility] Comment on above: Order Comment: Speci men Type: BLOOD SPECIMENOrdering Facility: [facility] Address: [address] [place] [address] Result Comment: Refe rence: 1. National Cholesterol Education Program ATP III Guideline At-A-Glance Quick Desk Reference: National Heart, Lung, and Blood [place]. National Institutes of Health. 2001: NIH Publication No. 01-3305. 2. An International Atherosclerosis Society position paper: global recommendations for the management of dyslipidemia: executive summary, Atherosclerosis. 2014: 232(2):410-413. Performed By: #### 2 4331-1 ####[facility] LABIA [id number] [place] [address] [facility] [id number] [address] Cholesterol in VLDL [Mass/Vol] 15 mg/dL Normal <30 [facility] Comment on above: Order Comment: Speci men Type: BLOOD SPECIMENOrdering Facility: [facility] Address: [address] [place] [address] Performed By: #### 2 4331-1 ####[facility] LABCLIA [id number] [id number] [place] [address] [facility] Cholesterol non HDL [Mass/Vol] 138 mg/dL High <130 [facility] Comment on above: Order Comment: Speci men Type: BLOOD SPECIMENOrdering Facility: [facility] Address: [address] [place] [address] Result Comment: <130 mg/dL, Optimal 130-159 mg/dL, Near optimal/above optimal 160-189 mg/dL, Borderline high 190-219 mg/dL, High >219 mg/dL, Very high Secondary prevention optimal non HDL Cholesterol levels are recommended to be <100 mg/dL Performed By: #### 2 4331-1 ####[facility] LABCLIA [id number] [address] [id number] [address] Cholesterol.total/Cho lesterol in HDL [Mass ratio] 3.42 {ratio} Normal <5.10 [facility] Comment on above: Order Comment: Speci men Type: BLOOD SPECIMENOrdering Facility: [facility] Address: [address] [place] [address] Performed By: #### 2 4331-1 ####[facility] LABCLIA [id number] [place] [address] [id number] [place] [address] [place] FASTING TIME 12 hrs Normal [facility] Comment on above: Order Comment: Speci men Type: BLOOD SPECIMENOrdering Facility: [facility] Address: [address] [place] [address] Performed By: #### 2 4331-1 ####[facility] LABCLIA [id number] [address] [id number] [place] [address] [place] Triglyceride [Mass/Vol] 86 mg/dL Normal <150 [facility] Comment on above: Order Comment: Speci men Type: BLOOD SPECIMENOrdering Facility: [facility] Address: [address] [place] [address] Result Comment: <150 mg/dL, Normal 150-199 mg/dL, Borderline high 200-499 mg/dL, High >499 mg/dL, Very high Performed By: #### 2 4331-1 ####[facility] LABCLIA [id number] [address] [id number] [address] [place] CNOVon 07-19-2025 CNOV Office Visit (AMILCARPWS ) RAJESH ESCOTO ([id number]) 1980 F Date Time Provider Department 07/19/25 1:00 PM HEATHER PULIDOPWS During your visit today, we recorded the following information about you: Pulse Blood pressure Weight 74/minute 157/88 65.3 kg TessYuri diamondHeather LuigiZANDRA alexis.REGULATORY SERVICES CONSULTANT 07/19/2025 1:37 PM Signed This is a 44 year old female who presents today with: The patient is a 44-year-old female presenting for evaluation of markedly elevated blood pressure. HISTORY OF PRESENT ILLNESS: Hypertension: - Rajesh Mario Siddiquian noted elevated blood pressure readings, with highest recorded at 184/110 mmHg today at 1140 taken by school nurse - Home blood pressure readings range from 147-160/95-110 mmHg. - Rajesh reports headaches and episodes of feeling off balance. - Occasional blurry vision, particularly when trying to focus on reading. Which is what happened today at work - Rajesh received a steroid injection on Wednesday; blood pressure was elevated prior to this - Family history of hypertension; maternal grandparents and possibly mother on antihypertensive medication. - Rajesh denies edema in lower extremities. Denies chest pain. - Discontinued Adderall on 06/22. The headache and blurred vision and dizziness has been intermittent, not persistent Reports drinking plenty of fluids Most Recent 07/21/22 - 07/19/25 11/27/22 10:24 12/07/22 15:12 08/09/24 15:10 09/29/24 07:39 10/03/24 07:53 10/11/24 10:54 BP 124/60 10/11/24 10:54 128/84 138/88 148/90 138/92 138/72 124/60 PAST MEDICAL HISTORY: PAST MEDICAL HISTORY Diagnosis Date Anxiety PAST SURGICAL HISTORY Procedure Laterality Date SNGL NONE TUBAL LIGATION ALLERGIES Patient has no known allergies. MEDICATIONS Current Outpatient Medications Medication Sig lisinopril (ZESTRIL) 5 mg tablet Take 1 tablet by mouth once daily. levonorgestrel (MIRENA) 20 mcg/24 hours (5-6 yrs) 52 mg IUD 1 Each by INTRAUTERINE route as directed. No current facility-administered medications for this visit. FAMILY HISTORY Problem Relation Age of Onset None Mother other (unknown) Father SOCIAL HISTORY[1] REVIEW OF SYSTEMS Head: (+) headache Eyes: (+) blurry vision, (-) visual lines Neurological: (+) disequilibrium, (-) dizziness See HPI EXAM: BP 162/97 Pulse 78 Wt 65.3 kg (144 lb) LMP 09/15/2024 (Exact Date) SpO2 100% BMI 24.34 kg/m? PHYSICAL EXAM: General Appearance: Well appearing, alert, in no acute distress, well-hydrated, well nourished.. Lungs: Lungs clear to auscultation. No wheezing, rhonchi, rales.. Heart: RRR without murmur, gallop, or rubs. No ectopy. Extremities: No deformities, edema, skin discoloration, clubbing or cyanosis. ASSESSMENT/PLAN: 1. Elevated BP without diagnosis of hypertension - ICD9: 796.2, ICD10: R03.0 (primary diagnosis) - Encouraged dietary sodium restriction/DASH diet - Recommended regular aerobic exercise. - Recommend home blood pressure monitoring, to bring results in on next visit. Encouraged not to stress about this and do multiple times per day. Focus on when she doesn't feel good or headache and take it. The stress will increase anxiety and BP which she agreed occurs - Goal of BP <130/80 - LISINOPRIL 5 MG TABLET take once daily but today repeat BP 2 hours later and if greater than 150 still, take a second dose. - follow up in 2 weeks for BP check - ECG COMPLETE - LIPID PANEL, FASTING - COMPLETE BLOOD COUNT AND DIFFERENTIAL - HEMOGLOBIN A1C - VITAMIN D 25 HYDROXY 2. Family history of diabetes mellitus - ICD9: V18.0, ICD10: Z83.3 3. Screening for diabetes mellitus - ICD9: V77.1, ICD10: Z13.1 - HEMOGLOBIN A1C 4. Screening for lipid disorders - ICD9: V77.91, ICD10: Z13.220 5. Family history of high cholesterol - ICD9: V18.19, ICD10: Z83.42 - LIPID PANEL, FASTING 6. Encounter for vitamin deficiency screening - ICD9: V77.99, ICD10: Z13.21 - VITAMIN D 25 HYDROXY Get labs done fasting 10-12 hours EKG was normal sinus, no concerns noted Discussed treatment plan and patient voices understanding and agreement Patient's questions answered appropriately. Medications and potential side effects were discussed and patient voices understanding. Return to the office as scheduled or as needed for worsening/no improvement. Heather Pulido APRN.REGULATORY SERVICES CONSULTANT Recording using [employer] software for draft documentation of the visit was discussed with the patient/authorized counter sales representative; all questions welcomed and answered. 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 Normal [facility] ECG COMPLETEon 07-19-2025 ECG COMPLETE Ventricular Rate : 6 5 BPM Atrial Rate : 65 BPM P-R Interval : 114 ms QRS Duration : 102 ms Q-T Interval : 400 ms QTC Calculation(Bazett) : 416 ms Calculated P Dallas : 60 degrees Calculated R Dallas : 54 degrees Calculated T Dallas : 49 degrees NORMAL SINUS RHYTHM NORMAL ECG Confirmed by MD MONROY QARAB ([id number]) on 07/20/2025 5:09:41 PM NAME : RAJESH ESCOTO PID : [id number] : 1980 Gender : Female Race : ORD : [id number] Procedure Date : Jul 19 2025 13:26:21 Edit Date : Jul 20 2025 17:09:44 Diagnosis: NORMAL SINUS RHYTHM NORMAL ECG Confirmed by MD MONROY QARAB ([id number]) on 07/20/2025 5:09:41 PM Test Reason : I10 Hypertension, unspecified type Location : 185 : [facility] Overread By : MD MONROY QARAB Edited By : MD MONROY QARAB Referred By : , Acquired by : [facility] RAJ[facility] ESC[facility] ([id number]) 1980 F Date Time Provider Department 06/29/25 RENETTA HANCOCK PSWSTR During your visit today, we recorded the following information about you: Genia Dallas LPN 06/29/2025 11:08 AM Signed Message left to reschedule 07/30 visit with Renetta. message also sent. Genia Dallas LPN Allergies As of Date: 06/29/2025 (No Known Allergies) Date Reviewed: 10/11/2024 Reviewed by: Leslye Webb MA - Fully Assessed Prescriptions as of 07/09/2025 - amphetamine-dextroamph etamine XR (ADDERALL XR) 20 mg capsule Take 1 capsule by mouth once daily for 30 days. - amphetamine-dextroamph etamine XR (ADDERALL XR) 20 mg capsule Take 1 capsule by mouth once daily for 30 days. Patient should start on June 06, 2025. - amphetamine-dextroamph etamine XR (ADDERALL XR) 20 mg capsule Take 1 capsule by mouth once daily for 30 days. Patient should start on July 06, 2025. - dextroamphetamine-amph etamine (ADDERALL) 10 mg tablet Take 1 tablet by mouth once daily for 30 days. - dextroamphetamine-amph etamine (ADDERALL) 10 mg tablet Take 1 tablet by mouth once daily for 30 days. Patient should start on June 06, 2025. - dextroamphetamine-amph etamine (ADDERALL) 10 mg tablet Take 1 tablet by mouth once daily for 30 days. Patient should start on July 06, 2025. - levonorgestrel (MIRENA) 20 mcg/24 hours (5-6 yrs) 52 mg IUD 1 Each by INTRAUTERINE route as directed. Problem List As Of Date 06/29/2025 Noted Resolved Anxiety and depression [F41.9, F32.A] 12/28/2018 Adenomyosis [N80.03] 03/18/2021 Enlarged uterus [N85.2] 03/18/2021 Dysmenorrhea [N94.6] 03/18/2021 Menorrhagia with regular cycle [N92.0] 03/18/2021 Encounter Status:Closed by GENIA DALLAS on 07/09/25 [facility] CNOVon 01-09-2025 CNOV Office Visit (PSWSTR ) RAJESH ESCOTO ([id number]) 1980 F Date Time Provider Department 01/09/25 9:30 AM NURSE [facility] PSWSTR During your visit today, we recorded the following information about you: Genia Dallas LPN 01/15/2025 9:05 AM Signed Order placed for EKG. Patient arrived at scheduled time, education provided on procedure, patient agrees to continue. Genia Dallas LPN Allergies As of Date: 01/09/2025 (No Known Allergies) Date Reviewed: 10/11/2024 Reviewed by: Leslye Webb MA - Fully Assessed Reason for Visit: EKG [793] Cmt: senior care medication encounter Primary Visit Diagnosis:Attention deficit hyperactivity disorder (ADHD), combined type [F90.2] Prescriptions as of 01/15/2025 - dextroamphetamine-amph etamine (ADDERALL) 10 mg tablet Take 1 tablet by mouth every afternoon for 30 days. - amphetamine-dextroamph etamine XR (ADDERALL XR) 20 mg capsule Take 1 capsule by mouth every morning for 30 days. - hydrOXYzine HCl (ATARAX) 25 mg tablet Take 1 tablet by mouth at bedtime as needed for anxiety (sleep issues). - levonorgestrel (MIRENA) 20 mcg/24 hours (5-6 yrs) 52 mg IUD 1 Each by INTRAUTERINE route as directed. Problem List As Of Date 01/09/2025 Noted Resolved Anxiety and depression [F41.9, F32.A] 12/28/2018 Adenomyosis [N80.03] 03/18/2021 Enlarged uterus [N85.2] 03/18/2021 Dysmenorrhea [N94.6] 03/18/2021 Menorrhagia with regular cycle [N92.0] 03/18/2021 Encounter Status:Closed by GENIA DALLAS on 01/15/25 Normal [facility] [id number] 01-09-2025 ECG01 Ventricular Rate : 7 9 BPM Atrial Rate : 79 BPM P-R Interval : 128 ms QRS Duration : 92 ms Q-T Interval : 362 ms QTC Calculation(Bazett) : 415 ms Calculated P Dallas : 61 degrees Calculated R Dallas : 30 degrees Calculated T Dallas : 34 degrees NORMAL SINUS RHYTHM WITH SINUS ARRHYTHMIA NORMAL ECG Confirmed by MD MONROY QARAB ([id number]) on 01/12/2025 3:30:03 PM NAME : RAJESH ESCOTO PID : [id number] : 1980 Gender : Female Race : ORD : Procedure Date : Jan 09 2025 10:20:46 Edit Date : Jan 12 2025 15:30:04 Diagnosis: NORMAL SINUS RHYTHM WITH SINUS ARRHYTHMIA NORMAL ECG Confirmed by MD MONROY QARAB ([id number]) on 01/12/2025 3:30:03 PM Test Reason : Location : 136 : [facility] Overread By : MD MONROY QARAB Edited By : MD MONROY QARAB Referred By : RENETTA HANCOCK Acquired by : Robson sherwood [facility] Comprehensive metabolic 2000 panelon 11-13-2024 Albumin [Mass/Vol] 4.5 g/dL Normal 3.9-4.9 [facility] Comment on above: Order Comment: Speci men Type: BLOOD SPECIMENOrdering Facility: [facility] Address: [address] [place] [address] Performed By: #### 2 4323-8 ####[facility] [id number] [place] [address] [place] [facility] ALP [Catalytic activity/Vol] 64 U/L Normal 34-123 [facility] Comment on above: Order Comment: Speci men Type: BLOOD SPECIMENOrdering Facility: [facility] Address: [address] [place] [address] Performed By: #### 2 4323-8 ####[facility] [id number] [place] [address] [place] ALT [Catalytic activity/Vol] 10 U/L Normal 7-38 [facility] Comment on above: Order Comment: Speci men Type: BLOOD SPECIMENOrdering Facility: [facility] Address: [address] [place] [address] Performed By: #### 2 4323-8 ####[facility] MILLTOWNCLIA [id number] [place] [address] [place] Anion gap [Moles/Vol] 11 mmol/L Normal 8-15 [facility] Comment on above: Order Comment: Speci men Type: BLOOD SPECIMENOrdering Facility: [facility] Address: [address] [place] [address] Performed By: #### 2 4323-8 ####[facility] MILL[facility]OWNCL[facility] [id number] [place] [address] [place] AST [Catalytic activity/Vol] 13 U/L Normal 13-35 [facility] Comment on above: Order Comment: Speci men Type: BLOOD SPECIMENOrdering Facility: [facility] Address: [address] [place] [address] Performed By: #### 2 4323-8 ####[facility] MILL[facility]OWN[facility] [id number] [place] [address] [place] Bilirubin [Mass/Vol] 0.4 mg/dL Normal 0.2-1.3 [facility] Comment on above: Order Comment: Speci men Type: BLOOD SPECIMENOrdering Facility: [facility] Address: [address] [place] [address] Performed By: #### 2 4323-8 ####[facility] MILL[facility]OWN[facility] [id number] [place] [address] [place] Calcium [Mass/Vol] 9.4 mg/dL Normal 8.5-10.2 [facility] Comment on above: Order Comment: Speci men Type: BLOOD SPECIMENOrdering Facility: [facility] Address: [address] [place] [address] Performed By: #### 2 4323-8 ####[facility] [id number] [place] [address] [place] Chloride [Moles/Vol] 103 mmol/L Normal 98-107 [facility] Comment on above: Order Comment: Speci men Type: BLOOD SPECIMENOrdering Facility: [facility] Address: [address] [place] [address] Performed By: #### 2 4323-8 ####[facility] [id number] [place] [address] [place] CO2 [Moles/Vol] 26 mmol/L Normal 22-30 [facility] Comment on above: Order Comment: Speci men Type: BLOOD SPECIMENOrdering Facility: [facility] Address: [address] [place] [address] Performed By: #### 2 4323-8 ####[facility] [id number] [place] [address] [place] Creatinine [Mass/Vol] 0.69 mg/dL Normal 0.58-0.96 [facility] Comment on above: Order Comment: Speci men Type: BLOOD SPECIMENOrdering Facility: [facility] Address: [address] [place] [address] Performed By: #### 2 4323-8 ####[facility] [id number] [address] OF [facility] Creatinine and Glomerular filtration rate.predicted panel (S/P/Bld) 110 mL/min/1.73m??? Normal >=60 [facility] Comment on above: Order Comment: Speci men Type: BLOOD SPECIMENOrdering Facility: [facility] Address: [address] [place] [address] Result Comment: Letitia mated Glomerular Filtration Rate (eGFR) is calculated using the 2020 CKD-EPI creatinine equation. This equation utilizes serum creatinine, sex, and age as parameters. The creatinine assay has traceable calibration to isotope dilution-mass spectrometry. Refer to KDIGO guidelines for clinical interpretation. In patients with unstable renal function, e.g. those with acute kidney injury, the eGFR may not accurately reflect actual GFR. Performed By: #### 2 4323-8 ####[facility] [id number] [place] [address] [place] Glucose [Mass/Vol] 93 mg/dL Normal 74-99 [facility] Comment on above: Order Comment: Samira unger Type: BLOOD SPECIMENOrdering Facility: [facility] Address: [address] [place] [address] Result Comment: The [place] Diabetes Association (ADA) provides guidance for cutoff values for fasting glucose and random glucose. The ADA defines fasting as no caloric intake for at least 8 hours. Fasting plasma glucose results between 100 to 125 mg/dL indicate increased risk for diabetes (prediabetes). Fasting plasma glucose results greater than or equal to 126 mg/dL meet the criteria for diagnosis of diabetes. In the absence of unequivocal hyperglycemia, results should be confirmed by repeat testing. In a patient with classic symptoms of hyperglycemia or hyperglycemic crisis, random plasma glucose results greater than or equal to 200 mg/dL meet the criteria for diagnosis of diabetes. Reference: Standards of Medical Care in Diabetes 2016, [place] Diabetes Association. Diabetes Care. 2016.39(Suppl 1). Performed By: #### 2 4323-8 ####[facility] [id number] [place] [address] [place] Potassium [Moles/Vol] 4.0 mmol/L Normal 3.7-5.1 [facility] Comment on above: Order Comment: Samira unger Type: BLOOD SPECIMENOrdering Facility: [facility] Address: [address] [place] [address] Performed By: #### 2 4323-8 ####[facility] [id number] [place] [address] [place] Protein [Mass/Vol] 6.9 g/dL Normal 6.3-8.0 [facility] Comment on above: Order Comment: Samira unger Type: BLOOD SPECIMENOrdering Facility: [facility] Address: [address] [place] [address] Performed By: #### 2 4323-8 ####[facility] [id number] [place] [address] [place] Sodium [Moles/Vol] 140 mmol/L Normal 136-144 [facility] Comment on above: Order Comment: Speci men Type: BLOOD SPECIMENOrdering Facility: [facility] Address: [address] [place] [address] Performed By: #### 2 4323-8 ####[facility] [id number] [place] [address] [place] Urea nitrogen [Mass/Vol] 11 mg/dL Normal 7-21 [facility] Comment on above: Order Comment: Speci men Type: BLOOD SPECIMENOrdering Facility: [facility] Address: [address] [place] [address] Performed By: #### 2 4323-8 ####[facility] [id number] [place] [address] [place] TOXICOLOGY SCREEN, ROUTINE U RINEon 11-13-2024 Amphetamines Confirm (U) [Mass/Vol] Negative Normal Negative [facility] Comment on above: Order Comment: Speci men Type: URINE SPECIMENOrdering Facility: [facility] Address: [address] [place] [address] Result Comment: Cuto ff threshold at 1000 ng/mL. Performed By: #### U TOX2 ####[facility] LABCLIA [id number] [place] [address] [place] BARBITURATES, URINE Negative Normal Negative [facility] Comment on above: Order Comment: Speci men Type: URINE SPECIMENOrdering Facility: [facility] Address: [address] [place] [address] Result Comment: Cuto ff threshold at 200 ng/mL. Performed By: #### U TOX2 ####[facility] LABCLIA [id number] [place] [address] [place] BENZODIAZEPINES, UR Negative Normal Negative [facility] Comment on above: Order Comment: Speci men Type: URINE SPECIMENOrdering Facility: [facility] Address: [address] [place] [address] Result Comment: Cuto ff threshold at 200 ng/mL. Performed By: #### U TOX2 ####[facility] LABCLIA [id number] [place] [address] [place] Cannabinoids Screen Ql (U) Negative Normal Negative [facility] Comment on above: Order Comment: Speci men Type: URINE SPECIMENOrdering Facility: [facility] Address: [address] [place] [address] Result Comment: Cuto ff threshold at 50 ng/mL. Performed By: #### U TOX2 ####[facility] LABCL[facility] [id number] [place] [address] [place] Cocaine Ql (U) Negative Normal Negative [facility] Comment on above: Order Comment: Speci men Type: URINE SPECIMENOrdering Facility: [facility] Address: [address] [place] [address] Result Comment: Cuto ff threshold at 300 ng/mL. Performed By: #### U TOX2 ####[facility] LABCL[facility] [id number] [place] [address] [place] Ethanol (U) [Mass/Vol] <11 Normal <11 [facility] Comment on above: Order Comment: Speci men Type: URINE SPECIMENOrdering Facility: [facility] Address: [address] [place] [address] Performed By: #### U TOX2 ####[facility] LABCLIA [id number] [place] [address] [place] Opiates Screen Ql (U) Negative Normal Negative [facility] Comment on above: Order Comment: Speci men Type: URINE SPECIMENOrdering Facility: [facility] Address: [address] [place] [address] Result Comment: Cuto ff threshold at 300 ng/mL. Performed By: #### U TOX2 ####[facility] LABIA [id number] [place] [address] [place] oxyCODONE cutoff Screen (U) [Mass/Vol] Negative Normal Negative [facility] Comment on above: Order Comment: Speci men Type: URINE SPECIMENOrdering Facility: [facility] Address: [address] [place] [address] Result Comment: Cuto ff threshold at 100 ng/mL. Performed By: #### U TOX2 ####[facility] LABIA [id number] [place] [address] [place] Phencyclidine Ql (U) Negative Normal Negative [facility] Comment on above: Order Comment: Speci men Type: URINE SPECIMENOrdering Facility: [facility] Address: [address] [place] [address] Result Comment: Cuto ff threshold at 25 ng/mL. Performed By: #### U TOX2 ####[facility] [id number] [place] [address] [place] TSH SerPl-aCncon 11-13-2024 TSH Qn 1.980 m[IU]/L Normal 0.270-4.200 [facility] Comment on above: Order Comment: Speci men Type: BLOOD SPECIMENOrdering Facility: [facility] Address: [address] [place] [address] Result Comment: If t he patient is , TSH reference range varies by gestational period: First Trimester (weeks 9-12): 0.180-2.990 mIU/L Second Trimester: 0.110-3.980 mIU/L Third Trimester: 0.480-4.710 mIU/L Lemuel Martin et al. A Practical Approach for the Verifications and Determination of Site- and Trimester-Specific Reference Intervals for Thyroid Function tests in . Thyroid, 2019:29:3:412-420. Jordy Velez, et al. 2017 Guidelines of the [place] Thyroid Association for the Diagnosis and Management of Thyroid Disease during and the . Thyroid, 2017:27:3:315-389. 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 Noble is a 44 year old who presents for an annual gynecologic exam without complaints. Started Adderrall- doing well. Menses: no menses - Mirena IUD. Contraception: IUD and tubal sterilization HPV vaccine: No Last Pap: 09/23/2020 normal HPV: 09/19/2020 negative History of abnormal pap: No Last mammogram: ending Sexually active: Yes History of STDS: None Patient concerns for STD exposure: No. 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 History Comments: Sexual Activity: Yes; Male Contraception: Tubal Ligation PAST MEDICAL HISTORY Diagnosis Date Anxiety PAST SURGICAL HISTORY Procedure Laterality Date SNGL NONE TUBAL LIGATION FAMILY HISTORY Problem Relation Age of Onset None Mother other (unknown) Father SOCIAL HISTORY Social History Tobacco Use Smoking status: Former Current packs/day: 0.00 Types: Cigarettes Quit date: 01/13/2013 Years since quittin.7 Smokeless tobacco: Never Tobacco comments: only social smoker Vaping Use Vaping status: Never Used Substance Use Topics Alcohol use: No Drug use: No REVIEW OF SYSTEMS Abdomen: No abdominal pain, nausea, vomiting, diarrhea, or constipation. No bloating, early satiety, indigestion, or increased flatulence. Bladder: No dysuria, gross hematuria, urinary frequency, urinary urgency, or incontinence. Breast: No breast lumps, nipple d/c, overlying skin changes, redness or skin retraction. Allergies and current medication updated:Yes SENSITIVE EXAM: The sensitive examination was discussed with the Patient or Patient's Authorized Consulting Practice Director. As applicable, any other physician, advance practice provider, medical student, or other health professional student that will be observing or involved in the sensitive examination for educational or training purposes was discussed with the Patient or Authorized Consulting Practice Director. The Patient or Authorized Consulting Practice Director has agreed to proceed with the sensitive examination. (Sensitive examination includes inspection and/or palpation of the breasts, pelvis, prostate and anorectal regions). EXAM: BP 124/6 Ht 5' 4.5 (1.64m) Wt 157 lb (71.2kg) LMP 09/15/2024 BMI 26.54 kg/(m2). GENERAL: pleasant, female in no apparent distress HEENT: Normocephalic, atraumatic, mucus membranes moist, and no lesions NECK: Supple, full range of motion, no adenopathy, and thyroid normal DERMATOLOGY: Normal, without lesions, non-icteric, and non-hirsute BREAST: soft, non-tender, symmetric, no dominant mass, normal nipple-areolar complex, no lymphadenopathy, and no nipple discharge ABDOMEN: soft, non-tender, and no masses PELVIC: external genitalia normal, normal Bartholin's glands, urethra, Eskridge's glands, no vulvar lesions, no cervical lesions, good vaginal support, physiologic discharge present, normal appearing perineal body and perianal region BIMANUAL: uterus normal size, shape and consistency, no adnexal masses, and non-tender RECTOVAGINAL: deferred. NEURO: alert and oriented x3,exam grossly non-focal EXTREMITIES: normal ASSESSMENT/PLAN: 1) Health maintenance: Pap/HPV up to date. Mammogram up to date . Nutrition, exercise and routine health maintenance exams reviewed. Calcium/Vitamin D supplementation information provided. Colon cancer screening: start at age 45 2) Contraception: IUD and tubal sterilization. Contraceptive options reviewed and information provided. 3) STD screening: Declined STD check. 4) Follow up one year or sooner as needed Farzana Traylor MD Allergies As of Date: 10/11/2024 (No Known Allergies) Date Reviewed: 10/11/2024 Reviewed by: Leslye Webb MA - Fully Assessed Primary Visit Diagnosis:Encounter for gynecological examination (general) (routine) without abnormal findings [Z01.419] Other Visit Diagnosis:Encounter for screening mammogram for breast cancer [Z12.31] Order(s):[facility] SCREENING Katja JAMES [[id number]] Order #: [id number] FUTURE Prescriptions as of 10/11/2024 - predniSONE (DELTASONE) 10 mg tablet Take 4 tabs daily x 3 days, then 3 tabs x 3 days, 2 tabs x 3 days, then 1 tab x3 days (more content not included)... Normal [facility] SCREENINGon 10-11-2024 SKYLA SCREENING * * *Final Report* * * DATE OF EXAM: Oct 11 2024 10:32AM [facility] 0581 - [facility] SCREENING / PROCEDURE REASON: Encounter for screening mammogram for breast cancer * * * * Physician Interpretation * * * * RESULT: [facility] [place] [address] HISTORY: Patient is 44 years old and is seen for screening and is asymptomatic in both breasts. Patient states no personal history of breast cancer. Patient states no personal history of other cancers. COMPARISON STUDIES: The present examination has been compared to prior imaging studies dated 09/18/2020 (mammogram) and 09/18/2020 (ultrasound). MAMMOGRAM TECHNIQUE: The study was acquired using full field digital technology and interpreted from soft copy. Computer-aided detection was utilized by the radiologist in the interpretation of this examination. MAMMOGRAM FINDINGS: The breasts are heterogeneously dense, which may obscure small masses. No suspicious masses, calcifications or other abnormalities are seen in either breast. There are no significant changes from the prior study. IMPRESSION: There is no mammographic evidence of malignancy in either breast. Routine screening mammogram is recommended. Annual mammogram will be due in 1 year. BI-RADS Category 1: Negative RISK: Based on the Tyrer-Cuzick (TC) risk assessment model, this patient has a 8.2% lifetime risk of developing breast cancer, meaning they are at average risk for developing breast cancer. However, this is only an estimate based on available history provided on the patient's questionnaire. We encourage all patients to talk with their providers about these results, further recommendations for managing breast health, and appropriate supplemental screening options if the patient has dense breast tissue. Interpreting Radiologist: Angelina Anna M.D. Electronically signed on: 10/11/2024 [employer] Worker Helper: SUNDAY Transcribe Date/Time: Oct 11 2024 10:22A Dictated by: ANGELINA ANNA MD This examination was interpreted and the report reviewed and electronically signed by: ANGELINA ANNA MD on Oct 11 2024 3:07PM EST [id number] Normal [facility] Breast Screeningon 2023 IMPRESSION: There is no mammographic evidence of malignancy in either breast. Routine screening mammogram is recommended. Annual mammogram will be due in 1 year. BI-RADS Category 1: Negative RISK: Based on the Tyrer-Cuzick (TC) risk assessment model, this patient has a 8.2% lifetime risk of developing breast cancer, meaning they are at average risk for developing breast cancer. However, this is only an estimate based on available history provided on the patient's questionnaire. We encourage all patients to talk with their providers about these results, further recommendations for managing breast health, and appropriate supplemental screening options if the patient has dense breast tissue. Interpreting Radiologist: Angelina Anna M.D. Electronically signed on: 10/11/2024 [employer] Worker Helper: SUNDAY Transcribe Date/Time: Oct 11 2024 10:22A Dictated by: ANGELINA ANNA MD This examination was interpreted and the report reviewed and electronically signed by: ANGELINA ANNA MD on Oct 11 2024 3:07PM [facility] DIVISION OF RADIOLOGY * * *Final Report* * * DATE OF EXAM: Oct 11 2024 10:32AM [facility] 0581 - [facility] SCREENING / PROCEDURE REASON: Encounter for screening mammogram for breast cancer * * * * Physician Interpretation * * * * RESULT: [facility] [address] [place] [address] HISTORY: Patient is 44 years old and is seen for screening and is asymptomatic in both breasts. Patient states no personal history of breast cancer. Patient states no personal history of other cancers. COMPARISON STUDIES: The present examination has been compared to prior imaging studies dated 09/18/2020 (mammogram) and 09/18/2020 (ultrasound). MAMMOGRAM TECHNIQUE: The study was acquired using full field digital technology and interpreted from soft copy. Computer-aided detection was utilized by the radiologist in the interpretation of this examination. MAMMOGRAM FINDINGS: The breasts are heterogeneously dense, which may obscure small masses. No suspicious masses, calcifications or other abnormalities are seen in either breast. There are no significant changes from the prior study. DIVISION OF RADIOLOGY Provider, [facility] - 10/11/2024 * * *Final Report* * * DATE OF EXAM: Oct 11 2024 10:32AM [facility] 0581 - [facility] SCREENING / PROCEDURE REASON: Encounter for screening mammogram for breast cancer * * * * Physician Interpretation * * * * RESULT: [facility] [address] [place] [address] HISTORY: Patient is 44 years old and is seen for screening and is asymptomatic in both breasts. Patient states no personal history of breast cancer. Patient states no personal history of other cancers. COMPARISON STUDIES: The present examination has been compared to prior imaging studies dated 09/18/2020 (mammogram) and 09/18/2020 (ultrasound). MAMMOGRAM TECHNIQUE: The study was acquired using full field digital technology and interpreted from soft copy. Computer-aided detection was utilized by the radiologist in the interpretation of this examination. MAMMOGRAM FINDINGS: The breasts are heterogeneously dense, which may obscure small masses. No suspicious masses, calcifications or other abnormalities are seen in either breast. There are no significant changes from the prior study. IMPRESSION IMPRESSION: There is no mammographic evidence of malignancy in either breast. Routine screening mammogram is recommended. Annual mammogram will be due in 1 year. BI-RADS Category 1: Negative RISK: Based on the Tyrer-Cuzick (TC) risk assessment model, this patient has a 8.2% lifetime risk of developing breast cancer, meaning they are at average risk for developing breast cancer. However, this is only an estimate based on available history provided on the patient's questionnaire. We encourage all patients to talk with their providers about these results, further recommendations for managing breast health, and appropriate supplemental screening options if the patient has dense breast tissue. Interpreting Radiologist: Angelina Anna M.D. Electronically signed on: 10/11/2024 [employer] Worker Helper: SUNDAY Transcribe Date/Time: Oct 11 2024 10:22A Dictated by: ANGELINA ANNA MD This examination was interpreted and the report reviewed and electronically signed by: ANGELINA ANNA MD on Oct 11 2024 3:07PM EST [facility] Radiology Study observation (narrative) [facility] MG Breast ScreeningOrdered B y: [facility] Provider on 10-11-2024 [facility] CNOVon 10-03-2024 CNOV Office Visit (UCTR ) RAJESH ESCOTO ([id number]) 1980 F Date Time Provider Department 10/03/24 7:45 AM PHI ESTEVEZ [facility] During your visit today, we recorded the following information about you: Temperature Pulse Respiration Blood pressure 97.2 degrees 84/minute 16/minute 138/72 Weight 74.2 kg Phi Estevez APRN.CNP 10/03/2024 8:13 AM Signed Subjective HPI Nontoxic-appearing female presents urgent care chief complaint rash. Duration of symptoms 1 week. Associated symptoms of pruritic rash. Presents today for evaluation. Was seen by me on Wednesday. Diagnosed with rash. Placed on triamcinolone and mupirocin. States symptoms have worsened. Rash has popped up in new places. Denies any significant pain. No recent medication changes antibiotic use. Overall feels well. No fevers nausea or vomiting. Denies chance of . Is not breast-feeding. Past medical history prescription medications allergies reviewed. .Patient presents with: Rash: seen on Wednesday given 2 creams, increased itching PAST MEDICAL HISTORY Diagnosis Date Anxiety PAST SURGICAL HISTORY Procedure Laterality Date SNGL NONE TUBAL LIGATION ALLERGIES Patient has no known allergies. MEDICATIONS triamcinolone acetonide (KENALOG) 0.1 % cream Apply 1 application to affected area three times a day for 7 days. Apply sparingly to area for rash/itching. mupirocin (BACTROBAN) 2 % ointment Apply to affected area three times a day for 5 days. amphetamine-dextroamph etamine XR (ADDERALL XR) 15 mg capsule Take 1 capsule by mouth every morning for 30 days. hydrOXYzine HCl (ATARAX) 25 mg tablet Take 1 tablet by mouth daily at bedtime. levonorgestrel (MIRENA) 20 mcg/24 hours (5-6 yrs) 52 mg IUD 1 Each by INTRAUTERINE route as directed. FAMILY HISTORY Problem Relation Age of Onset None Mother other (unknown) Father Social History Tobacco Use Smoking status: Former Current packs/day: 0.00 Types: Cigarettes Quit date: 01/13/2013 Years since quittin.7 Smokeless tobacco: Never Tobacco comments: only social smoker Vaping Use Vaping status: Never Used Substance Use Topics Alcohol use: No Drug use: No BP 138/72 Pulse 84 Temp 36.2 ?C (97.2 ?F) Resp 16 Wt 74.2 kg (163 lb 9.3 oz) LMP 09/15/2024 (Exact Date) SpO2 98% BMI 26.81 kg/m? Review of Systems Constitutional: Negative for chills, fever and malaise/fatigue. HENT: Negative for congestion, ear discharge, ear pain, sinus pain and sore throat. Eyes: Negative for blurred vision, pain, discharge and redness. Respiratory: Negative for cough, hemoptysis, sputum production, shortness of breath, wheezing and stridor. Cardiovascular: Negative for chest pain. Gastrointestinal: Negative for abdominal pain, diarrhea, nausea and vomiting. Musculoskeletal: Negative for myalgias. Skin: Positive for itching and rash. Neurological: Negative for dizziness and headaches. Objective Physical Exam Constitutional: General: She is not in acute distress. Appearance: She is not toxic-appearing. HENT: Head: Normocephalic. Nose: Nose normal. Eyes: Pupils: Pupils are equal, round, and reactive to light. Cardiovascular: Rate and Rhythm: Normal rate. Pulmonary: Effort: Pulmonary effort is normal. No respiratory distress. Musculoskeletal: Cervical back: Normal range of motion. Skin: General: Skin is warm and dry. Comments: Macular papular rash fluid-filled vesicles coalescing pattern noted with erythematous base on highlighted areas. No evidence of secondary bacterial infection. Spares mucosal membranes. Neurological: General: No focal deficit present. Mental Status: She is alert. ASSESSMENT/PLAN: 1. Rash - ICD9: 782.1, ICD10: R21 Diagnosed with rash. Suspicious of contact dermatitis. Placed on prednisone taper. Patient was educated on supportive therapies. Patient will follow up with primary care provider as needed. Patient was instructed to immediately proceed to emergency room for any new, worsening, or symptoms lasting longer than anticipated. The patient's clinical presentation is otherwise unremarkable at this time. Based on exam and clinical finding, the patient is stable for discharge. Plan of care was discussed with patient. Patient verbalizes understanding and agrees to plan of care. This note was generated using [employer] software. It may contain errors in wording, punctuation, or spelling. Phi Estevez APRN.REGULATORY SERVICES CONSULTANT Allergies As of Date: 10/03/2024 (No Known Allergies) Date Reviewed: 10/03/2024 Reviewed by: Phi Estevez APRN.REGULATORY SERVICES CONSULTANT - Fully Assessed Reason for Visit: Rash [1087] Cmt: seen on Wednesday given 2 creams, increased itching Primary Visit Diagnosis:Rash [R21] Order(s):predniSONE (DELTASONE) 10 mg tabletTake 4 tabs daily x 3 days, then 3 tabs x 3 days, 2 tabs x 3 days, then 1 (more content not included)... Normal [facility] CNOVon 09-29-2024 CNOV Office Visit (UCWSTR ) TIGISTRAJESH L ([id number]) 1980 F Date Time Provider Department 09/29/24 7:45 AM PHI ESTEVEZ [facility] During your visit today, we recorded the following information about you: Temperature Pulse Respiration Blood pressure 98.2 degrees 92/minute 20/minute 138/92 Weight Last Period 73 kg 09/15/24 Phi Estevez APRN.REGULATORY SERVICES CONSULTANT 09/29/2024 8:08 AM Signed Subjective HPI Nontoxic-appearing female presents urgent care chief complaint rash. Duration of symptoms 6 days. Associated symptoms erythematous itchy rash. States is painful at times. Most prominent symptom today is pruritus. OTC medication little no success. Overall feels well. No recent antibiotic changes. Past medical history prescription medications allergies reviewed. .Patient presents with: Rash: R upper thigh, spreading, redness, itchy, warm, drainage x 6 days PAST MEDICAL HISTORY Diagnosis Date Anxiety PAST SURGICAL HISTORY Procedure Laterality Date SNGL NONE TUBAL LIGATION ALLERGIES Patient has no known allergies. MEDICATIONS amphetamine-dextroamph etamine XR (ADDERALL XR) 15 mg capsule Take 1 capsule by mouth every morning for 30 days. hydrOXYzine HCl (ATARAX) 25 mg tablet Take 1 tablet by mouth daily at bedtime. levonorgestrel (MIRENA) 20 mcg/24 hours (5-6 yrs) 52 mg IUD 1 Each by INTRAUTERINE route as directed. FAMILY HISTORY Problem Relation Age of Onset None Mother other (unknown) Father Social History Tobacco Use Smoking status: Former Current packs/day: 0.00 Types: Cigarettes Quit date: 01/13/2013 Years since quittin.7 Smokeless tobacco: Never Tobacco comments: only social smoker Vaping Use Vaping status: Never Used Substance Use Topics Alcohol use: No Drug use: No BP 138/92 Pulse 92 Temp 36.8 ?C (98.2 ?F) Resp 20 Wt 73 kg (160 lb 15 oz) LMP 09/15/2024 (Exact Date) SpO2 100% BMI 26.37 kg/m? Review of Systems Constitutional: Negative for chills, fever and malaise/fatigue. HENT: Negative for congestion, ear discharge, ear pain, sinus pain and sore throat. Eyes: Negative for blurred vision, pain, discharge and redness. Respiratory: Negative for cough, hemoptysis, sputum production, shortness of breath, wheezing and stridor. Cardiovascular: Negative for chest pain. Gastrointestinal: Negative for abdominal pain, diarrhea, nausea and vomiting. Musculoskeletal: Negative for myalgias. Skin: Positive for itching and rash. Neurological: Negative for dizziness and headaches. Objective Physical Exam Constitutional: General: She is not in acute distress. Appearance: She is not toxic-appearing. HENT: Head: Normocephalic. Nose: Nose normal. Mouth/Throat: Mouth: Mucous membranes are moist. Pharynx: Oropharynx is clear. Eyes: Pupils: Pupils are equal, round, and reactive to light. Cardiovascular: Rate and Rhythm: Normal rate. Pulmonary: Effort: Pulmonary effort is normal. No respiratory distress. Musculoskeletal: Cervical back: Normal range of motion. Skin: General: Skin is warm and dry. Comments: Macular papular lesions with fluid-filled vesicles linear pattern noted. No remote redness. No evidence of infection. Neurological: General: No focal deficit present. Mental Status: She is alert. ASSESSMENT/PLAN: 1. Rash - ICD9: 782.1, ICD10: R21 Diagnosed with rash. Most consistent with contact dermatitis. Use steroid cream as instructed. Pain worsens or new symptoms develop return for reevaluation. Patient was educated on supportive therapies. Patient will follow up with primary care provider as needed. Patient was instructed to immediately proceed to emergency room for any new, worsening, or symptoms lasting longer than anticipated. The patient's clinical presentation is otherwise unremarkable at this time. Based on exam and clinical finding, the patient is stable for discharge. Plan of care was discussed with patient. Patient verbalizes understanding and agrees to plan of care. This note was generated using [employer] software. It may contain errors in wording, punctuation, or spelling. Phi Estevez APRN.REGULATORY SERVICES CONSULTANT Allergies As of Date: 09/29/2024 (No Known Allergies) Date Reviewed: 09/29/2024 Reviewed by: Phi Estevez APRN.REGULATORY SERVICES CONSULTANT - Fully Assessed Reason for Visit: Rash [1087] Cmt: R upper thigh, spreading, redness, itchy, warm, drainage x 6 days Primary Visit Diagnosis:Rash [R21] Order(s):triamcinolone acetonide (KENALOG) 0.1 % creamApply 1 application to affected area three times a day for 7 days. Apply sparingly to area for rash/itching.Disp: 80 gRfl: 0 mupirocin (BACTROBAN) 2 % ointmentApply to affected area three times a day for 5 days.Disp: 30 gRfl: 0 Prescriptions as of 09/29/2024 - triamcinolone acetonide (KENALOG) 0.1 % cream Apply 1 application to affected area three times a day (more content not included)... Normal [facility] 12 Lead EKGon 02-10-2022 12 Lead EKG [facility] Cardiovascular Services [address] [place] [address] 12 Lead EKG 02/10/22 1639 MR#: [id number] Acct: [id number] Name: RAJESH ESCOTO Rep #: [id number] : 1980 41 From: Dontae Giles MD Attending Dr: Status: DEP ER Ordering Dr: Marcos Fuller DO Date: 02/10/22 Location: ED Sex: F C Admitted: Test Reason : FALL Blood Pressure : / mmHG Vent. Rate : 066 BPM Atrial Rate : 066 BPM P-R Int : 110 ms QRS Dur : 096 ms QT Int : 406 ms P-R-T Axes : 070 058 050 degrees QTc Int : 425 ms Sinus rhythm with sinus arrhythmia with short AL Otherwise normal ECG Confirmed by CHARI JONES, DONTAE ([id number]), supervising film or videotape editor GINA SIMMS ([id number]) on 02/13/2022 8:55:40 AM Referred By: LUIS Confirmed By:DONTAE GILES MD 02/13/22 0855 Date Dontae Giles MD CC: Dr. Marcos Fuller, DO; Dr. Kelly Read MD Signed Normal [facility] Absolute lymphocyte counton 02-10-2022 Lymphocytes Auto (Unsp spec) [#/Vol] 2.21 10*3/uL 0.83-4.51 [facility] Work Phone: Basophil percentageon 2021 Basophils/100 WBC (Bld) 0.3 % 0-1 [facility] Work Phone: Bilirubin [Mass/Vol] 0.30 mg/dL 0.20-1.00 [facility] Work Phone: Comment on above: For patients on eltr ombopag therapy, use of Dimension [place] TBIL is not recommended. Chloride [Moles/Vol] 110 mmol/L 98-107 [facility] Work Phone: Eosinophils/100 WBC (Bld) 1.4 % 0-5 [facility] Work Phone: Glucose [Mass/Vol] 80 mg/dL 74-106 [facility] Work Phone: Neutrophils (Bld) [#/Vol] 6.2 10*3/uL 2.0-7.7 [facility] Work Phone: Neutrophils/100 WBC (Bld) 66.2 % 47-70 [facility] Work Phone: Potassium [Moles/Vol] 3.6 mmol/L 3.5-5.1 [facility] Work Phone: Protein [Mass/Vol] 7.4 g/dL 6.4-8.2 [facility] Work Phone: Sodium [Moles/Vol] 140 mmol/L 136-145 [facility] Work Phone: WBC (Bld) [#/Vol] 9.4 10*3/uL 4.4-11.0 [facility] Work Phone: Blood erythrocytes count (nu mber/volume)on 02-10-2022 RBC (Bld) [#/Vol] 4.56 10*6/uL 4.2-5.4 [facility] Work Phone: Blood hemoglobin measurement (mass/volume)on 02-10-2022 Hemoglobin (Bld) [Mass/Vol] 14.5 g/dL 12.0-15.0 [facility] Work Phone: Blood lymphocytes/100 leukoc yteson 02-10-2022 Lymphocytes/100 WBC (Bld) 23.5 % 19-41 [facility] Work Phone: Blood monocytes/100 leukocyt eson 02-10-2022 Monocytes/100 WBC (Bld) 8.3 % 0-10 [facility] Work Phone: Blood platelet mean volumeon 02-10-2022 Platelet mean volume (Bld) [Entitic vol] 10.3 fL 6.2-12.0 [facility] Work Phone: Brain/Head without Contrasto n 02-10-2022 Brain/Head without Contrast [facility] Imaging Services [address] [place] [address] Brain/Head without Contrast MR#: [id number] Acct: [id number] Name: RAJESH ESCOTO Rep #: [id number] : 1980 F 41 From: Mateo Marx MD PCP: Dr. Kelly Read MD Status: [facility] ER Study: Brain/Head without Contrast Date of Exam: 01/21 01/13 Exam# [id number] Ordering Dr: Marcos Fuller DO STUDY: CT BRAIN WITHOUT CONTRAST REASON FOR EXAM: Female, 41 years old. Syncope RADIATION DOSAGE (If Supplied By Facility): CTDIvol = ( 44.99 ) mGy, DLP = ( 762.36 ) mGycm TECHNIQUE: Transaxial CT imaging of the brain was performed without administration of intravenous contrast material. Individualized dose optimization techniques were used for this CT. COMPARISON: No relevant priors. FINDINGS: Normal soft tissue structures. Normal calvarium. Normal size ventricles and extra-axial spaces for the patient''s age. Normal white matter tracts of the cerebral hemispheres. Normal basal ganglia and thalami. Normal brainstem. Normal cerebellum. There is no intracranial hemorrhage. There are no findings of an acute ischemic infarction. Normal visualized paranasal sinuses. CT/Brain/Head without Contrast IMPRESSION: Normal unenhanced CT scan of the brain. Electronically Signed: Mateo Marx MD (Brooks) at 16:39 EDT Reading Location ID and State: [address] [place] [address] , Service support , CC: Dr. Marcos Fuller DO; Dr. Kelly Read MD [employer] Worker Helper: Signed Normal [facility] CBC W/Diff, Automatedon 01-21 Absolute Lymph 2.21 X10 3/uL Normal 0.83-4.51 [facility] Comment on above: Performed By: #### L 100.0100, L500.4050 #### [facility] [address] [place], [address] Absolute Neut 6.2 X10 3/uL Normal 2.0-7.7 [facility] Comment on above: Performed By: #### L 100.0100, L500.4050 #### [facility] [address] [place], [address] Basophils/100 WBC (Bld) 0.3 % Normal 0-1 [facility] Comment on above: Performed By: #### L 100.0100, L500.4050 #### [facility] [address] [place], [address] Eosinophils/100 WBC (Bld) 1.4 % Normal 0-5 [facility] Comment on above: Performed By: #### L 100.0100, L500.4050 #### [facility] [address] [place], [address] Erythrocyte distribution width (RBC) [Ratio] 13.0 % Normal 11.6-14.6 [facility] Comment on above: Performed By: #### L 100.0100, L500.4050 #### [facility] [address] [place], [address] Hematocrit (Bld) [Volume fraction] 41.7 % Normal 37-47 [facility] Comment on above: Performed By: #### L 100.0100, L500.4050 #### [facility] [address] [place], [address] Hemoglobin (Bld) [Mass/Vol] 14.5 g/dL Normal 12.0-15.0 [facility] Comment on above: Performed By: #### L 100.0100, L500.4050 #### [facility] [address] [place], [address] IG% 0.300 Normal 0.0-0.9 [facility] Comment on above: Result Comment: IG% - Immature Granulocytes (promyelocytes, myelocytes and metamyelocytes) > 1% indicates that a LEFT SHIFT is Present. Performed By: #### L 100.0100, L500.4050 #### [facility] [address] [place], [address] Lymphocytes/100 WBC (Bld) 23.5 % Normal 19-41 [facility] Comment on above: Performed By: #### L 100.0100, [id number] #### [facility] [address] [place], [address] MCH (RBC) [Entitic mass] 31.8 pg Normal 27.0-32.0 [facility] Comment on above: Performed By: #### L 100.0100, [id number] #### [facility] [address] [place], [address] MCHC (RBC) [Mass/Vol] 34.8 g/dL Normal 32-36 [facility] Comment on above: Performed By: #### L 100.0100, [id number] #### [facility] [address] [place], [address] MCV (RBC) [Entitic vol] 91.4 fL Normal 81-99 [facility] Comment on above: Performed By: #### L 100.0100, [id number] #### [facility] [address] [place], [address] Monocytes/100 WBC (Bld) 8.3 % Normal 0-10 [facility] Comment on above: Performed By: #### L 100.0100, [id number] #### [facility] [address] [place], [address] Neutrophils/100 WBC (Bld) 66.2 % Normal 47-70 [facility] Comment on above: Performed By: #### L 100.0100, L500.4050 #### [facility] [address] [place], [address] Nucleated RBC (Bld) [#/Vol] 0 10*3/uL Normal 0-5 [facility] Comment on above: Performed By: #### L 100.0100, L500.4050 #### [facility] [address] [place], [address] Platelet mean volume (Bld) [Entitic vol] 10.3 fL Normal 6.2-12.0 [facility] Comment on above: Performed By: #### L 100.0100, L500.4050 #### [facility] [address] [place], [address] Platelets (Bld) [#/Vol] 248 10*3/uL Normal 150-450 [facility] Comment on above: Performed By: #### L 100.0100, L500.4050 #### [facility] [address] [place], [address] RBC (Bld) [#/Vol] 4.56 10*6/uL Normal 4.2-5.4 [facility] Comment on above: Performed By: #### L 100.0100, L500.4050 #### [facility] [address] [place], [address] RDW SD 44.0 fl High 35.1-43.9 [facility] Comment on above: Performed By: #### L 100.0100, L500.4050 #### [facility] [address] [place], [address] WBC (Bld) [#/Vol] 9.4 10*3/uL Normal 4.4-11.0 [facility] Comment on above: Performed By: #### L 100.0100, L500.4050 #### [facility] [address] [place], [address] Comprehensive Metabolic Prof [facility] 02-10-2022 Albumin [Mass/Vol] 4.1 g/dL Normal 3.2-5.0 [facility] Comment on above: Performed By: #### L 100.0100, L500.4050 #### [facility] [address] [place], [address] Albumin/Globulin [Mass ratio] 1.2 {ratio} Normal 0.9-2.4 [facility] Comment on above: Performed By: #### L 100.0100, L500.4050 #### [facility] [address] [place], [address] ALK P 63 U/L Normal 45-117 [facility] Comment on above: Performed By: #### L 100.0100, L500.4050 #### [facility] [address] [place], [address] ALT [Catalytic activity/Vol] 21 U/L Normal 13-56 [facility] Comment on above: Performed By: #### L 100.0100, L500.4050 #### [facility] [address] [place], [address] AST [Catalytic activity/Vol] 14 U/L Low 15-37 [facility] Comment on above: Performed By: #### L 100.0100, L500.4050 #### [facility] [address] [place], [address] Bilirubin [Mass/Vol] 0.30 mg/dL Normal 0.20-1.00 [facility] Comment on above: Result Comment: For patients on eltrombopag therapy, use of Dimension [place] TBIL is not recommended. Performed By: #### L 100.0100, L500.4050 #### [facility] [address] [place], [address] BUN/CRE 17.7 RATIO Normal 10-20 [facility] Comment on above: Performed By: #### L 100.0100, L500.4050 #### [facility] [address] [place], [address] CA,Total 9.2 mg/dL Normal 8.5-10.1 [facility] Comment on above: Performed By: #### L 100.0100, L500.4050 #### [facility] [address] [place], [address] Chloride [Moles/Vol] 110 mmol/L High 98-107 [facility] Comment on above: Performed By: #### L 100.0100, L500.4050 #### [facility] [address] [place], [address] CO2 [Moles/Vol] 25.0 mmol/L Normal 21.0-32.0 [facility] Comment on above: Performed By: #### L 100.0100, L500.4050 #### [facility] [address] [place], [address] Creatinine [Mass/Vol] 0.85 mg/dL Normal 0.55-1.02 [facility] Comment on above: Result Comment: The validity of the calculated GFR GFRAA in patients over 70 years has not been determined. Clinical correlation is essential. Performed By: #### L 100.0100, L500.4050 #### [facility] [address] [place], [address] ECRCL 75.21 ml/min Normal [facility] Comment on above: Performed By: #### L 100.0100, L500.4050 #### [facility] [address] [place], [address] EST GFR - AA 95 mL/min Normal >60 [facility] Comment on above: Result Comment: Afri can [place] GFR Calc Performed By: #### L 100.0100, L500.4050 #### [facility] [address] [place], [address] GAP 5 Normal 5-15 [facility] Comment on above: Performed By: #### L 100.0100, L500.4050 #### [facility] [address] [place], [address] GFR/1.73 sq M.predicted among non-blacks MDRD (S/P/Bld) [Vol rate/Area] 79 mL/min/{1.73_m2} Normal >60 [facility] Comment on above: Result Comment: Non- GFR Calc Performed By: #### L 100.0100, L500.4050 #### [facility] [address] [place], [address] Globulin (S) [Mass/Vol] 3.3 g/dL Normal 2.2-4.2 [facility] Comment on above: Performed By: #### L 100.0100, L500.4050 #### [facility] [address] [place], [address] Glucose [Mass/Vol] 80 mg/dL Normal 74-106 [facility] Comment on above: Performed By: #### L 100.0100, L500.4050 #### [facility] [address] [place], [address] Potassium [Moles/Vol] 3.6 mmol/L Normal 3.5-5.1 [facility] Comment on above: Performed By: #### L 100.0100, L500.4050 #### [facility] [address] [place] [place], [address] Sodium [Moles/Vol] 140 mmol/L Normal 136-145 [facility] Comment on above: Performed By: #### L 100.0100, L500.4050 #### [facility] [address] [place], [address] T PROT 7.4 g/dL Normal 6.4-8.2 [facility] Comment on above: Performed By: #### L 100.0100, L500.4050 #### [facility] [address] [place], [address] Urea nitrogen [Mass/Vol] 15 mg/dL Normal 7-18 [facility] Comment on above: Performed By: #### L 100.0100, L500.4050 #### [facility] [address] [place], [address] Determination of erythrocyte mean corpuscular volume (MCV)on 02-10-2022 MCV (RBC) [Entitic vol] 91.4 fL 81-99 [facility] Work Phone: Emergency Department Summary on 02-10-2022 Emergency Department Summary [facility] Medical Records Department [address] [place] [address] Emergency Department Summary 02/10/22 MR#: [id number] Acct: [id number] Name: RAJESH ESCOTO Rep #: [id number] : 1980 41 From: Marcos Fuller DO PCP: Dr. Kelly Read MD Status:DEP ER Location: ED HPI HPI - Fall History of Present Illness Chief Complaint: Fall Informant: patient Occured/Mechanism Occurred: Days (2) Mechanism/Context: Yes same level fall Narrative: Syncopal episode after standing Pain/Injury Location: Head Pain Location: head Quality of Pain: Dull Current Severity: Mild Maximum Severity: Mild Worsened by: Nothing Relieved by: Nothing Associated Symptoms Associated Symptoms: Negative for Parasthesias, Weakness, Loss of function, Inability to ambulate, Loss of consciousness and Amnesia Narrative Narrative: Patient presents with a syncopal episode that occurred 2 days ago. Patient states she stood up from the couch where she was laying down. Patient states she felt lightheaded. Patient fell backwards and hit her head. Patient thinks she was only unconscious for a few seconds. Patient states she has pain in the occipital part of her head as well as the frontal part of her head. Patient describes it as dull and mild. Patient states nothing makes it better nothing makes it worse. Patient denies any paresthesias or weakness. Patient denies any other injuries. PFSH PFSH Medical History no medical history no medical history Home Medications hydrocodone-acetaminop hen 1 - 2 tab PO Q4H PRN PRN 3 Days #12 tab 01/11/18 [Rx Last Taken Unknown] Allergy/AdvReac Type Severity Reaction Status Date / Time No Known Allergies Allergy Verified 01/11/18 08:37 Surgical History (Updated 02/10/22 @ 16:[address] Marcos Fuller DO) H/O section Social History Smoking Status: Light Smoker (<10/day) ROS ROS ED Constitutional Constitutional ED: Denies chills or fever(s) Eyes Eyes: Denies blurry vision or change in vision ENT ENT ED: Denies rhinorrhea or sore throat Cardiovascular Cardiovascular: Denies chest pain or palpitations Respiratory/Chest Respiratory/Chest: Denies cough or dyspnea Gastrointestinal Gastrointestinal: Denies nausea or vomiting Genitourinary Genitourinary ED: Denies dysuria or hematuria Musculoskeletal Musculoskeletal: Denies back pain or neck pain Integumentary Denies abscess or rash Neurologic Neurologic: Reports headache(s); Denies weakness Allergic/Immunologic Allergic/Immunologic ED: Denies mouth swelling or urticaria EXAM Physical Exam Const Vital Signs: 02/10/22 15:42 02/10/22 15:49 Temperature 96.8 F L Temperature Source Temporal Pulse Rate 70 Respiratory Rate 16 Respiratory Effort Normal Respiratory Depth Normal Respiratory Pattern Normal Blood Pressure 153/88 H Blood Pressure Mean 109 Pulse Ox 98 Oxygen Delivery Method Room Air Room Air Positive well nourished and well developed General Appearance ED: well developed HEENT Reports moist mucous membranes HEENT Narrative: There is mild tenderness over the occiput. There is no bony crepitance or step- off. There is no edema or ecchymosis. There is no hematoma noted. tenderness Neck supple and no JVD Resp normal respiratory effort and clear to auscultation bilaterally Cardio regular rate, regular rhythm and no murmurs GI normal to inspection, nondistended, normoactive bowel sounds and non-tender Palpation: soft Extremity normal to inspection General Extremety ED: Negative for edema or tenderness General Extremity: Negative for edema Neuro oriented x3, CN's II-XII intact bilaterally and no sensory deficits noted Sensorium / Orientation: alert Motor Exam: strength 5/5 throughout Psych mental status grossly normal Skin no rashes or lesions noted MDM MDM MDM Narrative Medical decision making narrative: EKG was obtained. On my interpretation, it showed a normal sinus rhythm with a rate of 66. AL interval, QRS interval, and QTc intervals were all normal. [place] was normal. There are no acute ST or T wave changes. CT scan of the brain was obtained. There is no acute intracranial abnormality. This was interpreted by the radiologist and reviewed by myself. CBC was within normal limits. Comprehensive metabolic profile was within normal limits. Patient feels better on reevaluation. Patient wants to go home. Patient will be instructed to follow-up with her primary care physician in 5 to 7 days for reevaluation. Patient was instructed to drink plenty of fluids. Patient understood and was agreeable with the plan. All questions were answered. Lab Data Attestation: I reviewed the patient's lab results. Labs: Laboratory Results - last 24 h (more content not included)... Normal [facility] Hematocrit Auto (Bld) [Volum e fraction]on 02-10-2022 Hematocrit (Bld) [Volume fraction] 41.7 % 37-47 [facility] Work Phone: Laboratory - Chemistry and C hemistry - challengeon 02-10-2022 ALP [Catalytic activity/Vol] 63 U/L 45-117 [facility] Work Phone: ALT [Catalytic activity/Vol] 21 U/L 13-56 [facility] Work Phone: [phone] CO2 [Moles/Vol] 25.0 mmol/L 21.0-32.0 [facility] Work Phone: Globulin (S) [Mass/Vol] 3.3 g/dL 2.2-4.2 [facility] Work Phone: Urea nitrogen/Creatinine [Mass ratio] 17.7 mg/mg 10-20 [facility] Work Phone: Laboratory - Hematology and Cell countson 02-10-2022 Erythrocyte distribution width (RBC) [Entitic vol] 44.0 fL 35.1-43.9 [facility] Work Phone: Erythrocyte distribution width (RBC) [Ratio] 13.0 % 11.6-14.6 [facility] Work Phone: Immature granulocytes/100 WBC (Bld) 0.300 % 0.0-0.9 [facility] Work Phone: Comment on above: IG% - Immature Granu locytes (promyelocytes, myelocytes and metamyelocytes) > 1% indicates that a LEFT SHIFT is Present. MCH (RBC) [Entitic mass] 31.8 pg 27.0-32.0 [facility] Work Phone: Nucleated RBC/100 WBC (Bld) [Ratio] 0 % 0-5 [facility] Work Phone: MCHC Auto (RBC) [Mass/Vol]on 02-10-2022 MCHC (RBC) [Mass/Vol] 34.8 g/dL 32-36 [facility] Work Phone: No Panel Informationon 02-10 Estimated Creatinine Clearance Calc 75.21 ml/min [facility] Work Phone: Estimated GFR (MDRD) Amer 95 mL/min >60 [facility] Work Phone: Comment on above: GFR Calc Estimated GFR (MDRD) Non-Af Amer 79 mL/min >60 [facility] Work Phone: Comment on above: Non- GFR Calc Platelets bldon 02-10-2022 Platelets (Bld) [#/Vol] 248 10*3/uL 150-450 [facility] Work Phone: Serum or plasma albumin giovanna urement (mass/volume)on 02-10-2022 Albumin [Mass/Vol] 4.1 g/dL 3.2-5.0 [facility] Work Phone: Serum or plasma albumin/glob ulin mass ratioon 02-10-2022 Albumin/Globulin [Mass ratio] 1.2 {ratio} 0.9-2.4 [facility] Work Phone: Serum or plasma calcium giovanna urement (mass/volume)on 02-10-2022 Calcium [Mass/Vol] 9.2 mg/dL 8.5-10.1 [facility] Work Phone: Serum or plasma creatinine m easurement (mass/volume)on 02-10-2022 Creatinine [Mass/Vol] 0.85 mg/dL 0.55-1.02 [facility] Work Phone: Comment on above: The validity of the calculated GFR & GFRAA in patients over 70 years has not been determined. Clinical correlation is essential. Serum or plasma urea nitroge n measurement (mass/volume)on 02-10-2022 Urea nitrogen [Mass/Vol] 15 mg/dL 7-18 [facility] Work Phone: Thin prep Papanicolaou smear with manual screeningon 02-10-2022 Thin prep Papanicolaou smear with manual screening 14 U/L 15-37 [facility] Work Phone: Thin prep Papanicolaou smear with manual screening 5 5-15 [facility] Work Phone: Vital Signs Date Time Vital Sign Value Performing Clinician Faci lity 07-19-2025 13:29-0400 Diastolic blood pressure 88 mm[Hg] Heather Pulido APRN.REGULATORY SERVICES CONSULTANT Work Phone: [facility] 07-19-2025 13:29-0400 Heart rate 74 /min Heather Pulido APRN.REGULATORY SERVICES CONSULTANT Work Phone: [facility] 07-19-2025 13:29-0400 Systolic blood pressure 157 mm[Hg] Heather Pulido [employer] SALES [employer] MANAGEMENT.REGULATORY SERVICES CONSULTANT Work Phone: [facility] 07-19-2025 12:45-0400 Body mass index (BMI) [Ratio] 24.34 kg/m2 Heather Pulido [employer] SALES [employer] MANAGEMENT.REGULATORY SERVICES CONSULTANT Work Phone: [facility] 07-19-2025 12:45-0400 Body weight 65.32 kg Heather Pulido [employer] SALES [employer] MANAGEMENT.REGULATORY SERVICES CONSULTANT Work Phone: [facility] 07-19-2025 12:45-0400 SaO2% (BldA) [Mass fraction] 100 % Heather Pulido [employer] SALES AND MANAGEMENT.REGULATORY SERVICES CONSULTANT Work Phone: [facility] 10-11-2024 10:54-0500 Body height 163.8 cm Farzana Orr MD Work Phone: [facility] 10-11-2024 10:54-0500 Body mass index (BMI) [Ratio] 26.53 kg/m2 Farzana Orr MD Work Phone: [facility] 10-11-2024 10:54-0500 Body weight 71.22 kg Farzana Orr MD Work Phone: [facility] 10-11-2024 10:54-0500 Diastolic blood pressure 60 mm[Hg] Farzana Orr MD Work Phone: [facility] 10-11-2024 10:54-0500 Systolic blood pressure 124 mm[Hg] Farzana Orr MD Work Phone: [facility] 10-03-2024 07:53-0500 Body mass index (BMI) [Ratio] 26.81 kg/m2 Phi Estevez [employer] SALES AND MANAGEMENT.REGULATORY SERVICES CONSULTANT Work Phone: [facility] 10-03-2024 07:53-0500 Body temperature 97.2 [degF] Phi Estevez [employer] SALES AND MANAGEMENT.REGULATORY SERVICES CONSULTANT Work Phone: [facility] 10-03-2024 07:53-0500 Body weight 74.2 kg Phi Estevez [employer] SALES AND MANAGEMENT.REGULATORY SERVICES CONSULTANT Work Phone: [facility] 10-03-2024 07:53-0500 Diastolic blood pressure 72 mm[Hg] Phi Estevez [employer] SALES AND MANAGEMENT.REGULATORY SERVICES CONSULTANT Work Phone: [facility] 10-03-2024 07:53-0500 Heart rate 84 /min Phi Estevez [employer] SALES AND MANAGEMENT.REGULATORY SERVICES CONSULTANT Work Phone: [facility] 10-03-2024 07:53-0500 Respiratory rate 16 /min Phi Estevez [employer] SALES AND MANAGEMENT.REGULATORY SERVICES CONSULTANT Work Phone: [facility] 10-03-2024 07:53-0500 SaO2% (BldA) [Mass fraction] 98 % Phi Estevez [employer] SALES AND MANAGEMENT.REGULATORY SERVICES CONSULTANT Work Phone: [facility] 10-03-2024 07:53-0500 Systolic blood pressure 138 mm[Hg] Phi Estevez [employer] SALES AND MANAGEMENT.REGULATORY SERVICES CONSULTANT Work Phone: [facility] 09-29-2024 07:39-0500 Body mass index (BMI) [Ratio] 26.37 kg/m2 Phi Estevez [employer] SALES AND MANAGEMENT.REGULATORY SERVICES CONSULTANT Work Phone: [facility] 09-29-2024 07:39-0500 Body temperature 98.2 [degF] [facility] [employer] SERVICE SALES AND MANAGEMENT.REGULATORY SERVICES CONSULTANT Work Phone: [facility] 09-29-2024 07:39-0500 Body weight 73 kg [facility] [employer] SERVICE SALES AND MANAGEMENT.REGULATORY SERVICES CONSULTANT Work Phone: [facility] 09-29-2024 07:39-0500 Diastolic blood pressure 92 mm[Hg] [facility] [employer] SERVICE SALES AND MANAGEMENT.REGULATORY SERVICES CONSULTANT Work Phone: [facility] 09-29-2024 07:39-0500 Heart rate 92 /min [facility] BR[employer] SERVICE SALES AND MANAGEMENT.REGULATORY SERVICES CONSULTANT Work Phone: [facility] 09-29-2024 07:39-0500 Respiratory rate 20 /min [facility] [employer] SALES AND MANAGEMENT.REGULATORY SERVICES CONSULTANT Work Phone: [facility] 09-29-2024 07:39-0500 SaO2% (BldA) [Mass fraction] 100 % [facility] [employer] SERV[employer] SALES AND MANAGEMENT.REGULATORY SERVICES CONSULTANT Work Phone: [facility] 09-29-2024 07:39-0500 Systolic blood pressure 138 mm[Hg] [facility] [employer] SERVICE SALES AND MANAGEMENT.REGULATORY SERVICES CONSULTANT Work Phone: [facility] 08-09-2024 15:10-0400 Body mass index (BMI) [Ratio] 27.7 kg/m2 Farzana Orr MD Work Phone: [facility] 08-09-2024 15:10-0400 Body weight 76.66 kg Farzana Orr MD Work Phone: [facility] 08-09-2024 15:10-0400 Diastolic blood pressure 90 mm[Hg] Farzana Orr MD Work Phone: [facility] 08-09-2024 15:10-0400 Systolic blood pressure 148 mm[Hg] Farzana Orr MD Work Phone: [facility] 12-07-2022 15:12-0500 Body weight 77.38 kg Kelly Read MD Work Phone: [facility] 12-07-2022 15:12-0500 Diastolic blood pressure 88 mm[Hg] Kelly Read MD Work Phone: [facility] 12-07-2022 15:12-0500 Heart rate 84 /min Kelly Read MD Work Phone: [facility] 12-07-2022 15:12-0500 Respiratory rate 16 /min Kelly Read MD Work Phone: [facility] 12-07-2022 15:12-0500 Systolic blood pressure 138 mm[Hg] Kelly Read MD Work Phone: [facility] 11-27-2022 10:24-0500 Body temperature 97.7 [degF] Sacha Bardales [facility] 11-27-2022 10:24-0500 Body weight 77.47 kg Sacha Bardales [facility] 11-27-2022 10:24-0500 Diastolic blood pressure 84 mm[Hg] Sacha Bardales [facility] 11-27-2022 10:24-0500 Heart rate 83 /min Sacha Bardales [facility] 11-27-2022 10:24-0500 Respiratory rate 18 /min Sacha Bardales [facility] 11-27-2022 10:24-0500 SaO2% (BldA) [Mass fraction] 97 % Sacha Bardales [facility] 11-27-2022 10:24-0500 Systolic blood pressure 128 mm[Hg] Sacha COONNOR [facility] 06-02-2022 09:50-0400 Body weight 76.11 kg Kelly Read MD Work Phone: [facility] 06-02-2022 09:50-0400 Diastolic blood pressure 88 mm[Hg] Kelly Read MD Work Phone: [facility] 06-02-2022 09:50-0400 Heart rate 80 /min Kelly Read MD Work Phone: [facility] 06-02-2022 09:50-0400 Respiratory rate 18 /min Kelly Read MD Work Phone: [facility] 06-02-2022 09:50-0400 Systolic blood pressure 138 mm[Hg] Kelly Read MD Work Phone: [facility] 02-10-2022 17:30-0400 Diastolic blood pressure 89 mm[Hg] [facility] Work Phone: 02-10-2022 17:30-0400 Heart rate 78 /min [facility] Work Phone: 02-10-2022 17:30-0400 Respiratory rate 16 /min [facility] Work Phone: 02-10-2022 17:30-0400 SaO2% (BldA) [Mass fraction] 98 % [facility] Work Phone: 02-10-2022 17:30-0400 Systolic blood pressure 132 mm[Hg] [facility] Work Phone: 02-10-2022 15:42-0400 Body height 162.56 cm [facility] Work Phone: 02-10-2022 15:42-0400 Body mass index (BMI) [Ratio] 29.7 kg/m2 [facility] Work Phone: 02-10-2022 15:42-0400 Body temperature 96.8 [degF] [facility] Work Phone: 02-10-2022 15:42-0400 Body weight 78.47 kg [facility] Work Phone: 02-10-2022 14:52-0400 Body weight 78.47 kg Farzana Orr MD Work Phone: [facility] 02-10-2022 14:52-0400 Diastolic blood pressure 84 mm[Hg] Farzana Orr MD Work Phone: [facility] 02-10-2022 14:52-0400 Systolic blood pressure 124 mm[Hg] Farzana Orr MD Work Phone: [facility] Encounters Encounter Date Encounter Type Care Provider Facility Start: 09-12-2025 End: 09-12-2025 ambulatory [facility] Facility:[facility] Start: 08-30-2025 End: 08-30-2025 ambulatory [facility] Facility:[facility] Start: 08-29-2025 ambulatory HEATHERBEHZAD PULIDO Faci lit:[facility] Start: 08-22-2025 End: 08-22-2025 ambulatory [facility] Facility:[facility] Start: 08-20-2025 End: 08-20-2025 ambulatory HEATHER TESS Facility:[facility] Start: 08-08-2025 End: 08-08-2025 ambulatory [facility] Facility:[facility] Start: 07-25-2025 End: 07-25-2025 Follow-up encounter Heather Pulido APRN.CNP Work Phone: [facility] [place] Start: 07-20-2025 End: 07-20-2025 ambulatory HEATHER TESS Facility:[facility] Start: 07-19-2025 End: 07-19-2025 Office outpatient visit 25 minutes Heather Pulido APRN.CNP Work Phone: [facility] [place] Comment on above: Elevated BP without diagnosis of hypertension (Primary Dx); Family history of diabetes mellitus; Screening for diabetes mellitus; Screening for lipid disorders; Family history of high cholesterol; Encounter for vitamin deficiency screening Start: 07-19-2025 End: 07-19-2025 ambulatory Kelly Read MD Work Phone: [facility] [place] Comment on above: Blood pressure Start: 07-13-2025 End: 07-13-2025 E-mail encounter from caregiver Melony Mendez APRN.CNP Work Phone: Telemedicine Start: 07-13-2025 End: 07-13-2025 Telemedicine consultation with patient Melony Mendez APRN.CNP Work Phone: Telemedicine Comment on above: Rash and nonspecific skin eruption (Primary Dx) Symptoms Start: 07-13-2025 End: 07-13-2025 ambulatory [facility] Facility:[facility] Start: 06-29-2025 End: 07-09-2025 Telephone encounter Renetta Hancock APRN.CNP Work Phone: Psychiatry Start: 05-07-2025 End: 05-07-2025 [facility] Renetta Hancock APRN.REGULATORY SERVICES CONSULTANT Work Phone: Psychiatry Comment on above: Attention deficit hy peractivity disorder (ADHD), combined type (Primary Dx); Psychosocial stressors; ALVARADO (generalized anxiety disorder); Encounter for long-term (current) use of medications; Social anxiety disorder Start: 05-07-2025 End: 05-07-2025 [facility] Facility:[facility] Start: 05-04-2025 End: 05-04-2025 E-mail encounter from caregiver Renetta Hancock APRN.REGULATORY SERVICES CONSULTANT Work Phone: Psychiatry Start: 05-04-2025 End: 05-04-2025 Patient encounter procedure Renetta Hancock APRN.REGULATORY SERVICES CONSULTANT Work Phone: Psychiatry Comment on above: Appointment Start: 04-20-2025 End: 04-20-2025 E-mail encounter from caregiver Renetta Hancock APRN.REGULATORY SERVICES CONSULTANT Work Phone: Psychiatry Start: 04-20-2025 End: 04-20-2025 Patient encounter procedure Renetta Hancock APRN.REGULATORY SERVICES CONSULTANT Work Phone: Psychiatry Comment on above: Appointment Start: 02-18-2025 End: 02-19-2025 Refill Renetta Hancock APRN.REGULATORY SERVICES CONSULTANT Work Phone: Psychiatry Comment on above: Refill Request Start: 01-10-2025 End: 01-10-2025 [facility] Facility:[facility] Start: 01-10-2025 End: 01-10-2025 [facility] Renetta Hancock APRN.REGULATORY SERVICES CONSULTANT Work Phone: Psychiatry Comment on above: Attention deficit hy peractivity disorder (ADHD), combined type (Primary Dx); ALVARADO (generalized anxiety disorder); Encounter for long-term (current) use of medications; Medication side effect, initial encounter Start: 01-09-2025 End: 01-09-2025 [facility] Facility:[facility] Start: 01-09-2025 End: 01-09-2025 Patient encounter procedure Nurse [facility] Work Phone: Psychiatry Comment on above: Attention deficit hy peractivity disorder (ADHD), combined type (Primary Dx) Start: 12-12-2024 End: 12-12-2024 Refill Renetta Hancock APRN.REGULATORY SERVICES CONSULTANT Work Phone: Psychiatry Comment on above: Refill Request Start: 11-14-2024 End: 11-14-2024 Refill Renetta Hancock APRN.REGULATORY SERVICES CONSULTANT Work Phone: Psychiatry Comment on above: Refill Request Start: 11-13-2024 End: 11-13-2024 ambulatory [facility] Facility:[facility] Start: 10-11-2024 End: 10-11-2024 Follow-up encounter Renetta Hancock APRN.REGULATORY SERVICES CONSULTANT Work Phone: Psychiatry Comment on above: Medication follow up Start: 10-11-2024 End: 10-11-2024 Patient encounter procedure Farzana Orr MD Work Phone: OB/Gynecology Comment on above: Encounter for gyneco logical examination (general) (routine) without abnormal findings (Primary Dx); Encounter for screening mammogram for breast cancer Start: 10-11-2024 End: 10-11-2024 Patient encounter status Farzana Orr MD Work Phone: [facility] Start: 10-11-2024 End: 10-11-2024 ambulatory Renetta Hancock APRN.REGULATORY SERVICES CONSULTANT Work Phone: Psychiatry Start: 10-11-2024 End: 10-11-2024 Subsequent hospital visit by physician Screen Mammo [facility] Mammogram Comment on above: Encounter for screen ing mammogram for breast cancer [Z12.31] Start: 10-03-2024 End: 10-03-2024 ambulatory KELLY GIBSONCOWGILL Facility:[facility] Start: 10-03-2024 End: 10-03-2024 Office outpatient visit 15 minutes Phi Estevez [employer]NA[employer]EMENT.REGULATORY SERVICES CONSULTANT Work Phone: [facility] Comment on above: Rash (Primary Dx) Start: 09-29-2024 End: 09-29-2024 ambulatory KELLY READ Facility:[facility] Start: 09-29-2024 End: 09-29-2024 Office outpatient visit 15 minutes Phi Estevez [employer] MANA[employer]EMENT.REGULATORY SERVICES CONSULTANT Work Phone: [facility] Comment on above: Rash (Primary Dx) Start: 09-18-2024 End: 09-18-2024 [facility] Renetta Rodriguez Tricia [employer] SAL[employer] AND MANAGEMENT.REGULATORY SERVICES CONSULTANT Work Phone: Psychiatry Comment on above: Attention deficit hy peractivity disorder (ADHD), combined type (Primary Dx); Encounter for long-term (current) use of medications; ALVARADO (generalized anxiety disorder); Social anxiety disorder Start: 08-11-2024 End: 08-11-2024 Telephone encounter Farzana Orr MD Work Phone: OB/Gynecology Comment on above: Dysuria Start: 08-09-2024 End: 08-09-2024 Patient encounter procedure Farzana Orr MD Work Phone: OB/Gynecology Comment on above: Hot flashes (Primary Dx); Poor sleep; Poor concentration; Anxiety and depression Start: 04-12-2024 ambulatory Kelly rodriguez MD Work Phone: [facility] [place] Start: 12-07-2022 End: 12-07-2022 Patient encounter procedure Kelly Read MD Work Phone: [facility] [place] Comment on above: Acute otitis media, right (Primary Dx); Decreased hearing of right ear; Anxiety and depression; Poor concentration Start: 11-27-2022 End: 11-27-2022 Patient encounter procedure Sacha OCONNOR [facility] Comment on above: Viral URI with cough (Primary Dx); Acute otitis media, left Start: 09-08-2022 End: 09-08-2022 ambulatory Kelly Read MD Work Phone: [facility] [place] Comment on above: Anxiety and depressi on (Primary Dx) Start: 09-08-2022 End: 09-08-2022 Telemedicine consultation with patient Kelly Read MD Work Phone: [facility] Start: 06-26-2022 E-mail encounter fro m caregiver [facility] Start: 06-26-2022 Follow-up encounter [facility] Provider [facility] Comment on above: Follow up Start: 06-26-2022 End: 06-26-2022 ambulatory Kelly Read MD Work Phone: [facility] [place] Comment on above: Anxiety and depressi on Start: 06-26-2022 End: 06-26-2022 Telemedicine consultation with patient Kelly Read MD Work Phone: [facility] Start: 06-12-2022 Chart abstracting Karina MORENO Work Phone: Psychology Start: 06-11-2022 Telephone encounter Karinachery MORENO Work Phone: Psychology Comment on above: reschedule Start: 06-04-2022 Telephone encounter Cuco ramos VP [employer] Work Phone: Psychology Comment on above: Consult (Initial [facility] W Pt Outreach) Start: 06-03-2022 Telephone encounter Kimberli ojeda [employer] SAL[employer] MANAGEMENT.REGULATORY SERVICES CONSULTANT Work Phone: [facility] [place] Comment on above: Results (labs ) Start: 06-02-2022 End: 06-02-2022 Patient encounter procedure Kelly Read MD Work Phone: [facility] [place] Comment on above: Anxiety and depressi on (Primary Dx) Start: 05-20-2022 ambulatory Kelly rodriguez MD Work Phone: [facility] [place] Start: 02-19-2022 Phys/qhp online evaluation & management service Melony Mendez [employer] SALES AND MANAGEMENT.REGULATORY SERVICES CONSULTANT Work Phone: Telemedicine Comment on above: Viral upper respirat ory infection (Primary Dx) Start: 02-10-2022 End: 02-10-2022 Emergency department patient visit [facility] Start: 02-10-2022 End: 02-10-2022 Patient encounter procedure Farzana Orr MD Work Phone: OB/Gynecology Comment on above: Pelvic pressure in f emale (Primary Dx); IUD (intrauterine device) in place; Bloating; Traumatic injury of head, initial encounter Procedures Date Procedure Procedure Detail Performing Clinician Start: 07-19-2025 Ecg routine ecg w/le ast 12 lds i&r only Heather Pulido APRN.REGULATORY SERVICES CONSULTANT Work Phone: Start: 10-11-2024 Screening mammograph y bi 2-view breast inc cad Bulk Order Provider Start: 02-10-2022 CT of head without contrast Plan of Treatment Date Care Activity Detail Author Start: 10-11-2025 Screening for malign ant neoplasm of breast Mammogram Screening [facility] Start: 09-17-2025 HPV TESTING HPV TESTING [facility] Start: 09-17-2025 PAP TESTING PAP TESTING [facility] Start: 09-17-2025 Screening for malign ant neoplasm of cervix [facility] Start: 08-20-2025 End: 08-20-2025 ambulatory 08/20/2025 3:15 PM EDT Results Only [facility] [address] [place] [address] [facility] Start: 08-20-2025 End: 11-19-2025 Hematocrit [Volume Fraction] of Blood HEMATOCRIT Lab Routine Elevated hemoglobin Elevated hematocrit Expected: 08/20/2025, Expires: 11/19/2025 [facility] Comment on above: Expected: 08/20/2025 , Expires: 11/19/2025 Start: 08-20-2025 End: 11-19-2025 Hemoglobin [Mass/volume] in Blood HEMOGLOBIN Lab Routine Elevated hemoglobin Elevated hematocrit Expected: 08/20/2025, Expires: 11/19/2025 [facility] Work Phone: Comment on above: Expected: 08/20/2025 , Expires: 11/19/2025 Start: 08-20-2025 End: 08-20-2025 Patient encounter procedure 08/20/2025 2:00 PM EDT Office Visit [facility] [place] [address] [place], [place] [id number] Kelly Read MD [address] [place], [place] [id number] Blood pressure has been running high for a week. [facility] [place] Comment on above: Blood pressure has b een running high for a week. Start: 08-08-2025 End: 08-08-2025 ambulatory 08/08/2025 4:30 PM EDT [address] [address] Renetta Hancock, [employer] MANAGEMENT.REGULATORY SERVICES CONSULTANT [address] [place] [phone] VV moved from 07/30, provider out of office. Psychiatry Comment on above: VV moved from 07/30, isha troncoso out of office. Start: 08-03-2025 End: 08-03-2025 Patient encounter procedure 08/03/2025 3:20 PM EDT Office Visit [facility] [address] [place], [place] [id number] Heather Pulido, [employer] SAL[employer] AND MANAGEMENT.REGULATORY SERVICES CONSULTANT [address] [place], [place] [id number] 2 week follow up [facility] Comment on above: 2 week follow up Start: 07-30-2025 End: 07-30-2025 ambulatory Psychiatry Comment on above: Offered 07/03 @ 4 PM to Pt Start: 07-23-2025 Influenza vaccination C [facility] Start: 07-19-2025 End: 10-18-2025 25-hydroxyvitamin D3 [Mass/volume] in Serum or Plasma VITAMIN D 25 HYDROXY Lab Routine Elevated BP without diagnosis of hypertension Encounter for vitamin deficiency screening Expected: 07/19/2025, Expires: 10/18/2025 [facility] Comment on above: Expected: 07/19/2025 , Expires: 10/18/2025 Start: 07-19-2025 End: 10-18-2025 CBC W Auto Differential panel - Blood COMPLETE BLOOD COUNT AND DIFFERENTIAL Lab Routine Elevated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 HISTORY[1] REVIEW OF SYSTEMS Constitutional: (+) fatigue Neurological: (+) difficulty concentrating Psychiatric: (+) anxiety See HPI EXAM: BP 116/72 Pulse 95 Wt 63 kg (138 lb 12.8 oz) LMP 09/15/2024 (Exact Date) SpO2 100% BMI 23.46 kg/m? PHYSICAL EXAM: General Appearance: Well appearing, alert, in no acute distress, well-hydrated, well nourished.. Lungs: Lungs clear to auscultation. No wheezing, rhonchi, rales.. Heart: RRR without murmur, gallop, or rubs. No ectopy. ASSESSMENT/PLAN: 1. Situational hypertension - ICD9: 796.2, ICD10: R03.0 (primary diagnosis) - Encouraged dietary sodium restriction/DASH diet - Recommended regular aerobic exercise. - Recommend home blood pressure monitoring, to bring results in on next visit - Goal of BP <130/80 - BUSPIRONE 5 MG TABLET as needed for anxiety which is a main cause or trend of her high BPs - follow up in 4 weeks - Stress treadmill echo 2. Situational anxiety - ICD9: 300.09, ICD10: F41.8 - BUSPIRONE 5 MG TABLET three times daily as needed 3. Work-related stress - ICD9: V62.1, ICD10: Z56.6 - BUSPIRONE 5 MG TABLET three times daily as needed 4. Adult ADHD - ICD9: 314.01, ICD10: F90.9 - continue to follow with therapist, consult with us if needed to manage as well - agree that adderall with the higher Bps is not best option, can look at straterra or other SSRI/SSNI that may help Discussed treatment plan and patient voices understanding. Patient's questions answered appropriately. Medications and potential side effects were discussed and patient voices understanding. Return to the office as scheduled or as needed for worsening/no improvement. Heather Pulido APRN.REGULATORY SERVICES CONSULTANT Recording using [employer] software for draft documentation of the visit was discussed with the patient/authorized counter sales representative; all questions welcomed and answered. Patient/authorized counter sales representative agreed to proceed [1] Social History Tobacco Use Smoking status: Former Current packs/day: 0.00 Types: Cigarettes Quit date: 01/13/2013 Years since quittin.6 Smokeless tobacco: Never Tobacco comments: only social smoker Vaping Use Vaping status: Never Used Substance Use Topics Alcohol use: No Drug use: No [facility] 08-08-2025 Note HNO ID: [id number] Author: RENETTA HANCOCK APRN.REGULATORY SERVICES CONSULTANT Service: ? Author Type: Nurse Practitioner Type: Progress Notes Filed: 08/10/2025 11:01 Note Text: FOLLOW UP - PSYCHIATRIC PROGRESS NOTE Visit Type:Virtual Visit utilizing two-way audio and video for at least a portion of the visit. Consent for virtual visit obtained verbally. Confidentiality limitations with virtual visits reviewed with the patient and guardian, if present, who have accepted the risk verbally prior to proceeding with encounter. I have communicated my name and active licensure. The patient's identity and physical location were verified at the time of this visit. Either the patient or their legal counter sales representative has been informed of the risks and benefits of -- and alternatives to -- treatment through a remote evaluation and consents to proceed with the evaluation remotely. Recording using ambient AI software for draft documentation of the visit was discussed with the patient/authorized counter sales representative; all questions welcomed and answered. Patient/authorized counter sales representative agreed to proceed CC: Outpatient follow-up and safety monitoring of previously prescribed psychiatric medication, psychotherapy or other treatment HPI: Rajehs Escoto is a 45-year-old female with a history of ADHD and hypertension, presenting for follow-up on ADHD management and recent episodes of elevated blood pressure. Rajesh reports discontinuing Adderall approximately one month ago due to concerns about elevated blood pressure readings, which she initially suspected might be related to the medication. Despite discontinuing Adderall, she has not observed any improvement in her blood pressure, which remains elevated. She notes a recent reading of 176/104 mmHg today and a previous reading of 184/105 mmHg. She denies experiencing palpitations or chest pain but does report episodes of feeling weird, difficulty with word-finding, and a sensation similar to stepping off an elevator, accompanied by a dull headache. She is currently taking lisinopril 5 mg, with instructions to take an additional dose if her blood pressure remains high after a few hours. Rajesh reports taking two doses yesterday and one dose today, noting that the medication has not effectively lowered her blood pressure. Rajesh attributes the initial spike in her blood pressure to a severe case of poison ruba, for which she received a steroid. She reports that her blood pressure was elevated prior to the steroid treatment but worsened afterward. She is monitoring her blood pressure at home and has an upcoming appointment for lab work to recheck her levels now that the steroid should be out of her system. Since discontinuing Adderall, she has noticed a resurgence of ADHD symptoms, particularly difficulty with concentration and word-finding. She describes feeling ignorant during conversations and struggles to communicate effectively, especially in her role at work. She reports replaying conversations in her head and feeling frustrated by her inability to express herself clearly. 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 However, she still faces challenges with concentration and communication, particularly when required to take over a class or discuss incidents with her principal. She expresses a desire to manage her symptoms without exacerbating her hypertension and is open to exploring non-stimulant options for ADHD management. Risks and benefits of the medication, including any black box warnings, were discussed with the patient. Interval Progress: Worse PATIENT DATA: Generalized Anxiety Disorder Scale (ALVARADO-7) 01/09/2025 05/06/2025 08/08/2025 ALVARADO - 7 SCORES Score 2 1 7 (0-4) minimal anxiety, (5-9) mild anxiety, (10-14) moderate anxiety, (15-21) severe anxiety Patient Health Questionnaire (PHQ-9) 01/09/2025 05/06/2025 08/07/2025 PHQ-9 Score 6 1 3 (0-4) minimal depression, (5-9) mild depression, (10-14) moderate depression, (15-19) moderately severe depression, (20-27) severe depression PROMIS Global Health 12/24/2024 05/06/2025 08/07/2025 PROMIS Global Health - (T-Scores - the mean of general population = 50. Five points is a clinically meaningful difference.) Physical T-Score 50.8 50.8 54.1 Mental T-Score 36.3 45.8 45.8 PAST MEDICAL HISTORY Diagnosis Date Anxiety PAST SURGICAL HISTORY Procedure Laterality Date SNGL NONE TUBAL LIGATION Current Outpatient Medications Medication Sig Dispense Refill lisinopril (ZESTRIL) 5 mg tablet Take 1 tablet by mouth once daily. 30 tablet 2 levonorgestrel (MIRENA) 20 mcg/24 hours (5-6 yrs) 52 mg IUD 1 Each by INTRAUTERINE route as directed. 1 Each 0 No current facility-administered medications for this visit. ROS: See HPI PFSH: See HPI VITAL SIGNS: There were no vitals filed for this visit. MENTAL STATUS EXAM: Mental Sta (more content not included)... 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 Random BP checks but do not cause yourself more anxiety with it. Focus on if you're not feeling well, checking your BP Watch sodium intake as that can increase BP Try to decrease possible causes of stress or anxiety that can lead to elevated BP Get your labs done when you're fasting 10-12 hours please documented in this encounter [facility] 07-19-2025 History of Presen t illness Narrative This is a 44 year old female who presents today with: The patient is a 44-year-old female presenting for evaluation of markedly elevated blood pressure. HISTORY OF PRESENT ILLNESS: Hypertension: - Rajesh Escoto noted elevated blood pressure readings, with highest recorded at 184/110 mmHg today at 1140 taken by school nurse - Home blood pressure readings range from 147-160/95-110 mmHg. - Rajesh reports headaches and episodes of feeling off balance. - Occasional blurry vision, particularly when trying to focus on reading. Which is what happened today at work - Rajesh received a steroid injection on Wednesday; blood pressure was elevated prior to this - Family history of hypertension; maternal grandparents and possibly mother on antihypertensive medication. - Rajesh denies edema in lower extremities. Denies chest pain. - Discontinued Adderall on 06/22. The headache and blurred vision and dizziness has been intermittent, not persistent Reports drinking plenty of fluids Most Recent 07/21/22 - 07/19/25 11/27/22 10:24 12/07/22 15:12 08/09/24 15:10 09/29/24 07:39 10/03/24 07:53 10/11/24 10:54 BP 124/60 10/11/24 10:54 128/84 138/88 148/90 138/92 138/72 124/60 PAST MEDICAL HISTORY: PAST MEDICAL HISTORY Diagnosis Date Anxiety PAST SURGICAL HISTORY Procedure Laterality Date SNGL NONE TUBAL LIGATION ALLERGIES Patient has no known allergies. MEDICATIONS Current Outpatient Medications Medication Sig lisinopril (ZESTRIL) 5 mg tablet Take 1 tablet by mouth once daily. levonorgestrel (MIRENA) 20 mcg/24 hours (5-6 yrs) 52 mg IUD 1 Each by INTRAUTERINE route as directed. No current facility-administered medications for this visit. FAMILY HISTORY Problem Relation Age of Onset None Mother other (unknown) Father SOCIAL HISTORY[1] REVIEW OF SYSTEMS Head: (+) headache Eyes: (+) blurry vision, (-) visual lines Neurological: (+) disequilibrium, (-) dizziness See HPI EXAM: BP 162/97 Pulse 78 Wt 65.3 kg (144 lb) LMP 09/15/2024 (Exact Date) SpO2 100% BMI 24.34 kg/m PHYSICAL EXAM: General Appearance: Well appearing, alert, in no acute distress, well-hydrated, well nourished.. Lungs: Lungs clear to auscultation. No wheezing, rhonchi, rales.. Heart: RRR without murmur, gallop, or rubs. No ectopy. Extremities: No deformities, edema, skin discoloration, clubbing or cyanosis. ASSESSMENT/PLAN: 1. Elevated BP without diagnosis of hypertension - ICD9: 796.2, ICD10: R03.0 (primary diagnosis) - Encouraged dietary sodium restriction/DASH diet - Recommended regular aerobic exercise. - Recommend home blood pressure monitoring, to bring results in on next visit. Encouraged not to stress about this and do multiple times per day. Focus on when she doesn't feel good or headache and take it. The stress will increase anxiety and BP which she agreed occurs - Goal of BP <130/80 - LISINOPRIL 5 MG TABLET take once daily but today repeat BP 2 hours later and if greater than 150 still, take a second dose. - follow up in 2 weeks for BP check - ECG COMPLETE - LIPID PANEL, FASTING - COMPLETE BLOOD COUNT AND DIFFERENTIAL - HEMOGLOBIN A1C - VITAMIN D 25 HYDROXY 2. Family history of diabetes mellitus - ICD9: V18.0, ICD10: Z83.3 3. Screening for diabetes mellitus - ICD9: V77.1, ICD10: Z13.1 - HEMOGLOBIN A1C 4. Screening for lipid disorders - ICD9: V77.91, ICD10: Z13.220 5. Family history of high cholesterol - ICD9: V18.19, ICD10: Z83.42 - LIPID PANEL, FASTING 6. Encounter for vitamin deficiency screening - ICD9: V77.99, ICD10: Z13.21 - VITAMIN D 25 HYDROXY Get labs done fasting 10-12 hours EKG was normal sinus, no concerns noted Discussed treatment plan and patient voices understanding and agreement Patient's questions answered appropriately. Medications and potential side effects were discussed and patient voices understanding. Return to the office as scheduled or as needed for worsening/no improvement. Heather Pulido APRN.REGULATORY SERVICES CONSULTANT Recording using [employer] software for draft documentation of the visit was discussed with the patient/authorized counter sales representative; all questions welcomed and answered. Patient/authorized counter sales representative agreed to proceed [1] Social History Tobacco Use Smoking status: Former Current packs/day: 0.00 Types: Cigarettes Quit date: 01/13/2013 Years since quittin.5 Smokeless tobacco: Never Tobacco comments: only social smoker Vaping Use Vaping status: Never Used Substance Use Topics Alcohol use: No Drug use: No documented in this encounter [facility] 07-19-2025 Note HNO ID: [id number] Author: HEATHER PULIDO APRN.CNP Service: ? Author Type: Nurse Practitioner Type: Progress Notes Filed: 07/19/2025 13:37 Note Text: This is a 44 year old female who presents today with: The patient is a 44-year-old female presenting for evaluation of markedly elevated blood pressure. HISTORY OF PRESENT ILLNESS: Hypertension: - Rajesh Escoto noted elevated blood pressure readings, with highest recorded at 184/110 mmHg today at 1140 taken by school nurse - Home blood pressure readings range from 147-160/95-110 mmHg. - Rajesh reports headaches and episodes of feeling off balance. - Occasional blurry vision, particularly when trying to focus on reading. Which is what happened today at work - Rajesh received a steroid injection on Wednesday; blood pressure was elevated prior to this - Family history of hypertension; maternal grandparents and possibly mother on antihypertensive medication. - Rajesh denies edema in lower extremities. Denies chest pain. - Discontinued Adderall on 06/22. The headache and blurred vision and dizziness has been intermittent, not persistent Reports drinking plenty of fluids Most Recent 07/21/22 - 07/19/25 11/27/22 10:24 12/07/22 15:12 08/09/24 15:10 09/29/24 07:39 10/03/24 07:53 10/11/24 10:54 BP 124/60 10/11/24 10:54 128/84 138/88 148/90 138/92 138/72 124/60 PAST MEDICAL HISTORY: PAST MEDICAL HISTORY Diagnosis Date Anxiety PAST SURGICAL HISTORY Procedure Laterality Date SNGL NONE TUBAL LIGATION ALLERGIES Patient has no known allergies. MEDICATIONS Current Outpatient Medications Medication Sig lisinopril (ZESTRIL) 5 mg tablet Take 1 tablet by mouth once daily. levonorgestrel (MIRENA) 20 mcg/24 hours (5-6 yrs) 52 mg IUD 1 Each by INTRAUTERINE route as directed. No current facility-administered medications for this visit. FAMILY HISTORY Problem Relation Age of Onset None Mother other (unknown) Father SOCIAL HISTORY[1] REVIEW OF SYSTEMS Head: (+) headache Eyes: (+) blurry vision, (-) visual lines Neurological: (+) disequilibrium, (-) dizziness See HPI EXAM: BP 162/97 Pulse 78 Wt 65.3 kg (144 lb) LMP 09/15/2024 (Exact Date) SpO2 100% BMI 24.34 kg/m? PHYSICAL EXAM: General Appearance: Well appearing, alert, in no acute distress, well-hydrated, well nourished.. Lungs: Lungs clear to auscultation. No wheezing, rhonchi, rales.. Heart: RRR without murmur, gallop, or rubs. No ectopy. Extremities: No deformities, edema, skin discoloration, clubbing or cyanosis. ASSESSMENT/PLAN: 1. Elevated BP without diagnosis of hypertension - ICD9: 796.2, ICD10: R03.0 (primary diagnosis) - Encouraged dietary sodium restriction/DASH diet - Recommended regular aerobic exercise. - Recommend home blood pressure monitoring, to bring results in on next visit. Encouraged not to stress about this and do multiple times per day. Focus on when she doesn't feel good or headache and take it. The stress will increase anxiety and BP which she agreed occurs - Goal of BP <130/80 - LISINOPRIL 5 MG TABLET take once daily but today repeat BP 2 hours later and if greater than 150 still, take a second dose. - follow up in 2 weeks for BP check - ECG COMPLETE - LIPID PANEL, FASTING - COMPLETE BLOOD COUNT AND DIFFERENTIAL - HEMOGLOBIN A1C - VITAMIN D 25 HYDROXY 2. Family history of diabetes mellitus - ICD9: V18.0, ICD10: Z83.3 3. Screening for diabetes mellitus - ICD9: V77.1, ICD10: Z13.1 - HEMOGLOBIN A1C 4. Screening for lipid disorders - ICD9: V77.91, ICD10: Z13.220 5. Family history of high cholesterol - ICD9: V18.19, ICD10: Z83.42 - LIPID PANEL, FASTING 6. Encounter for vitamin deficiency screening - ICD9: V77.99, ICD10: Z13.21 - VITAMIN D 25 HYDROXY Get labs done fasting 10-12 hours EKG was normal sinus, no concerns noted Discussed treatment plan and patient voices understanding and agreement Patient's questions answered appropriately. Medications and potential side effects were discussed and patient voices understanding. Return to the office as scheduled or as needed for worsening/no improvement. Heather Pulido APRN.REGULATORY SERVICES CONSULTANT Recording using [employer] software for draft documentation of the visit was discussed with the patient/authorized counter sales representative; all questions welcomed and answered. Patient/authorized counter sales representative agreed to proceed [1] Social History Tobacco Use Smoking status: Former Current packs/day: 0.00 Types: Cigarettes Quit date: 01/13/2013 Years since quittin.5 Smokeless tobacco: Never Tobacco comments: only social smoker Vaping Use Vaping status: Never Used Substance Use Topics Alcohol use: No Drug use: No [facility] 07-19-2025 Telephone encounter Note Patient scheduled to see Heather today 07/19/2025. [facility] 07-19-2025 Miscellaneous Notes Patient scheduled to see Heahter today 07/19/2025. documented in this encounter [facility] 07-13-2025 Instructions Melony Mendez APRN.CNP - 07/13/2025 11:19 AM EDT - Take cetirizine (your [employer] brand) 2 tablets each morning and 2 tablets each evening for today and tomorrow. - Continue using your [id number] cortisone cream, cold compresses, and Bactine as needed for itching and discomfort. - Send an update through [employer] by Wednesday morning about how your rash and symptoms are responding. - If there s no improvement by Wednesday, we will consider a second-level treatment such as oral steroids documented in this encounter [facility] 07-13-2025 Note HNO ID: [id number] Author: MELONY MENDEZ APRN.CNP Service: ? Author Type: Nurse Practitioner Type: Progress Notes Filed: 07/13/2025 11:20 Note Text: Telemedicine Visit - Distance Health Virtual Visit Note Patient seen on [employer] Video Visit platform. Location of patient: [place] PCP listed in chart: Kelly Read MD I have communicated my name and active licensure. The patient's identity and physical location were verified at the time of this visit. Either the patient or their legal counter sales representative has been informed of the risks and benefits of -- and alternatives to -- treatment through a remote evaluation and consents to proceed with the evaluation remotely. Subjective The patient is a 44-year-old female presenting with a pruritic rash on the face and neck, onset 3 days ago. Rash: - Onset 3 days ago. - Pruritic, burning sensation with xerosis. - Initially appeared under the chin, now spreading to the forehead. - Noted swelling and serous drainage from the ear. - Denies any recent changes in diet, environment, or exposure to new substances. - Frequent outdoor exposure; history of poison ruba. - Tried Benadryl, cetirizine, hydroxyzine, cortisone cream, cold compresses, and Bactine with no relief. - Recent significant stress at work, but unsure if related to rash onset. Ears/Nose/Mouth/Throat: (+) ear swelling, (+) ear pain, (+) ear discharge Skin: (+) facial and neck rash, (+) pruritus of face and neck, (+) facial burning, (+) facial skin dryness, (+) facial induration Objective Last menstrual period 09/15/2024. General: No acute distress. Skin: Mild to moderate erythema on face, ears, and anterior neck; some lesions within confluent erythema; most prominent finding is consistent erythema. Assessment AND Plan 1. Rash and nonspecific skin eruption (R21) - Acute onset of erythematous, pruritic, and burning rash localized to face, ears, and anterior neck; no clear infectious etiology identified. - Most consistent with an allergic or irritant contact dermatitis or possibly urticaria; infection less likely. - Advised to take cetirizine 10 mg PO BID (two tablets in the morning and two in the evening) for the next two days. - Educated on the importance of consistent antihistamine use before considering escalation to steroids; explained that steroids are not first-line treatment. - Follow-up via [employer] message on Wednesday morning; if no improvement after consistent antihistamine use, will consider next-level treatment. Unclear cause but feel either urticaria or poison ruba are most likely causes. Treatment would look different as urticaria is primarily antihistamines while poison ruba will not respond to antihistamines. Feel consistent antihistamines is reasonable place to start with short follow up for lack of improvement. No angioedema, breathing or swallowing issues present after 2-3 days, so would not expect that to be an issue moving forward. Recording using [employer] software for draft documentation of the visit was discussed with the patient/authorized counter sales representative; all questions welcomed and answered. Patient/authorized counter sales representative agreed to proceed IF YOUR SYMPTOMS PERSIST OVER THE NEXT 2-3 DAYS OR WORSENING AT ANY TIME DESPITE TREATMENT PLAN, PLEASE SEEK FURTHER IN PERSON EVALUATION - Red flags discussed for need for in person care - All questions answered Melony Mendez [facility] Emergency Medicine Express Care Online Differential Diagnoses - contact dermatitis is more likely for the following reason(s): suggested by HANDP - urticaria is less likely for the following reason(s): no wheals [facility] 07-13-2025 History of Presen t illness Narrative Telemedicine Visit - Distance Health Virtual Visit Note Patient seen on [employer] Video Visit platform. Location of patient: [place] PCP listed in chart: Kelly Read MD I have communicated my name and active licensure. The patient's identity and physical location were verified at the time of this visit. Either the patient or their legal counter sales representative has been informed of the risks and benefits of -- and alternatives to -- treatment through a remote evaluation and consents to proceed with the evaluation remotely. Subjective The patient is a 44-year-old female presenting with a pruritic rash on the face and neck, onset 3 days ago. Rash: - Onset 3 days ago. - Pruritic, burning sensation with xerosis. - Initially appeared under the chin, now spreading to the forehead. - Noted swelling and serous drainage from the ear. - Denies any recent changes in diet, environment, or exposure to new substances. - Frequent outdoor exposure; history of poison ruba. - Tried Benadryl, cetirizine, hydroxyzine, cortisone cream, cold compresses, and Bactine with no relief. - Recent significant stress at work, but unsure if related to rash onset. Ears/Nose/Mouth/Throat: (+) ear swelling, (+) ear pain, (+) ear discharge Skin: (+) facial and neck rash, (+) pruritus of face and neck, (+) facial burning, (+) facial skin dryness, (+) facial induration Objective Last menstrual period 09/15/2024. General: No acute distress. Skin: Mild to moderate erythema on face, ears, and anterior neck; some lesions within confluent erythema; most prominent finding is consistent erythema. Assessment & Plan 1. Rash and nonspecific skin eruption (R21) - Acute onset of erythematous, pruritic, and burning rash localized to face, ears, and anterior neck; no clear infectious etiology identified. - Most consistent with an allergic or irritant contact dermatitis or possibly urticaria; infection less likely. - Advised to take cetirizine 10 mg PO BID (two tablets in the morning and two in the evening) for the next two days. - Educated on the importance of consistent antihistamine use before considering escalation to steroids; explained that steroids are not first-line treatment. - Follow-up via [employer] message on Wednesday morning; if no improvement after consistent antihistamine use, will consider next-level treatment. Unclear cause but feel either urticaria or poison ruba are most likely causes. Treatment would look different as urticaria is primarily antihistamines while poison ruba will not respond to antihistamines. Feel consistent antihistamines is reasonable place to start with short follow up for lack of improvement. No angioedema, breathing or swallowing issues present after 2-3 days, so would not expect that to be an issue moving forward. Recording using [employer] software for draft documentation of the visit was discussed with the patient/authorized counter sales representative; all questions welcomed and answered. Patient/authorized counter sales representative agreed to proceed IF YOUR SYMPTOMS PERSIST OVER THE NEXT 2-3 DAYS OR WORSENING AT ANY TIME DESPITE TREATMENT PLAN, PLEASE SEEK FURTHER IN PERSON EVALUATION - Red flags discussed for need for in person care - All questions answered Melony Mendez CNP [facility] Emergency Medicine Express Care Online Differential Diagnoses - contact dermatitis is more likely for the following reason(s): suggested by H&P - urticaria is less likely for the following reason(s): no wheals documented in this encounter [facility] 06-29-2025 Telephone encounter Note Message left to reschedule 07/30 visit with Renetta. MC message also sent. Genia Dallas LPN [facility] 06-29-2025 Miscellaneous Notes Message left to reschedule 07/30 visit with Renetta. MC message also sent. Genia Dallas LPN documented in this encounter [facility] 05-10-2025 Renetta Gusman APRN.VINI - 05/10/2025 2:24 AM EDT We discussed your concerns about your daughter and the challenges you are facing: - It is understandable that you are feeling anxious about your daughter s plans to move out with her boyfriend when she turns 18. This is a significant transition for both of you. - I encouraged you to maintain open communication with your daughter, acknowledging her feelings and intentions while expressing your concerns in a non-confrontational way. - Consider involving a trusted adult or family friend who your daughter respects to have a conversation with her about the potential risks and benefits of her decisions. - It is important to balance providing support and guidance with allowing her to make her own decisions and learn from her experiences. This approach can help maintain a positive relationship and ensure she feels comfortable coming to you in the future. - You may also want to set boundaries regarding the frequency of her boyfriend s visits to your home to help you feel more comfortable in your space. 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 You are feeling more consistent and productive. - You have not experienced any significant side effects from the medication, and the timing of your doses is working well for you. - You mentioned that you are using hydroxyzine sparingly and still have a nearly full bottle, so no refill is needed at this time. - I sent in a 3-month supply of your Adderall prescriptions (20 mg extended-release and 10 mg immediate-release) to your preferred [facility]. We discussed your overall well-being and plans for the future: - You shared that you are feeling much better compared to a year ago and are glad you stuck with your treatment plan. You feel more normal and are finding value in maintaining structure and routine. - You plan to return to work in the fall, as the routine and structure are beneficial for your mental health. You also recognize the importance of focusing on the positives in your life, such as supportive coworkers and time off with your children during the summer. Follow-Up: - Your next appointment is scheduled for July 30, at 9:00 AM. At that visit, we will likely order lab work. - Please continue taking your medications as prescribed and reach out if you experience any new or worsening symptoms. Thank you for sharing your concerns and progress. I look forward to seeing you at your next visit. For those experiencing a suicidal crisis: --call the National Suicide Prevention Lifeline at 921 (446-303-2296) --text the Crisis Text Line (text HOME to 934251) --call 388 and let them know you are having a mental health crisis or go to your nearest Emergency Room for stabilization. --You can also call Mobile Crisis at [phone]. -- You may call the department appointment line at [phone] to schedule your appointment. -- Please call my nurse at [phone] or send me a message in [employer] with any questions or concerns between appointments. documented in this encounter [facility] 05-07-2025 Note HNO ID: [id number] Author: RENETTA HANCOCK APRN.VINI Service: ? Author Type: Nurse Practitioner Type: Progress Notes Filed: 05/10/2025 02:24 Note Text: FOLLOW UP - PSYCHIATRIC PROGRESS NOTE Visit Type: Virtual Visit utilizing two-way audio and video for at least a portion of the visit. Consent for virtual visit obtained verbally. Confidentiality limitations with virtual visits reviewed with the patient and guardian, if present, who have accepted the risk verbally prior to proceeding with encounter. I have communicated my name and active licensure. The patient's identity and physical location were verified at the time of this visit. Either the patient or their legal counter sales representative has been informed of the risks and benefits of -- and alternatives to -- treatment through a remote evaluation and consents to proceed with the evaluation remotely. Recording using [employer] software for draft documentation of the visit was discussed with the patient/authorized counter sales representative; all questions welcomed and answered. Patient/authorized counter sales representative agreed to proceed CC: Outpatient follow-up and safety monitoring of previously prescribed psychiatric medications. HPI: Rajesh Escoto is a 44-year-old female with a history of ADHD and anxiety, presenting for follow-up. ADHD: - Current medication regimen includes Adderall 20 mg extended release and a 10 mg immediate release booster. - Reports improved symptom management with current medication regimen. - Denies interference with sleep from the booster dose. - Consistent with medication adherence, noting previous struggles with consistency. Anxiety: - Experiencing increased anxiety related to daughter's recent graduation and potential plans to move out with her boyfriend. - Concerns about daughter's future plans and decision-making. - Reports difficulty sleeping due to anxiety about daughter's situation. - Using hydroxyzine PRN for sleep; has a nearly full bottle remaining. Risks and benefits of the medication, including any black box warnings, were discussed with the patient. Interval Progress: Slightly worse due to psychosocial stressors PATIENT DATA: Generalized Anxiety Disorder Scale (ALVARADO-7) 12/24/2024 01/09/2025 05/06/2025 ALVARADO - 7 SCORES Score 7 2 1 (0-4) minimal anxiety, (5-9) mild anxiety, (10-14) moderate anxiety, (15-21) severe anxiety Patient Health Questionnaire (PHQ-9) 12/24/2024 01/09/2025 05/06/2025 PHQ-9 Score 6 6 1 (0-4) minimal depression, (5-9) mild depression, (10-14) moderate depression, (15-19) moderately severe depression, (20-27) severe depression PAST MEDICAL HISTORY Diagnosis Date Anxiety PAST SURGICAL HISTORY Procedure Laterality Date SNGL NONE TUBAL LIGATION ALLERGIES No Known Allergies Current Outpatient Medications on File Prior to Visit Medication Sig dextroamphetamine-amphetamine (ADDERALL) 10 mg tablet Take 1 tablet by mouth every afternoon for 30 days. amphetamine-dextroamphetamine XR (ADDERALL XR) 20 mg capsule Take 1 capsule by mouth every morning for 30 days. levonorgestrel (MIRENA) 20 mcg/24 hours (5-6 yrs) 52 mg IUD 1 Each by INTRAUTERINE route as directed. No current facility-administered medications on file prior to visit. ROS: See HPI PFSH: See HPI VITAL SIGNS: There were no vitals filed for this visit. Last 3 Encounter BP Readings: Date: BP: 10/11/2024 124/60 10/03/2024 138/72 09/29/2024 138/92 Labwork: CBC and Differential: WBC Date Value Ref Range Status 06/02/2022 8.58 3.70 - 11.00 k/uL Final RBC Date Value Ref Range Status 06/02/2022 5.15 3.90 - 5.20 m/uL Final Hematocrit Date Value Ref Range Status 06/02/2022 48.1 (H) 36.0 - 46.0 % Final MCV Date Value Ref Range Status 06/02/2022 93.4 80.0 - 100.0 fL Final MCH Date Value Ref Range Status 06/02/2022 30.9 26.0 - 34.0 pg Final MCHC Date Value Ref Range Status 06/02/2022 33.1 30.5 - 36.0 g/dL Final Platelet Count Date Value Ref Range Status 09/17/2020 272 150 - 400 k/uL Final MPV Date Value Ref Range Status 09/17/2020 10.5 9.0 - 12.7 fL Final Comprehensive Metabolic Panel: BUN Date Value Ref Range Status 11/13/2024 11 7 - 21 mg/dL Final Creatinine Date Value Ref Range Status 11/13/2024 0.69 0.58 - 0.96 mg/dL Final Sodium Date Value Ref Range Status 11/13/2024 140 136 - 144 mmol/L Final Potassium Date Value Ref Range Status 11/13/2024 4.0 3.7 - 5.1 mmol/L Final CO2 Date Value Ref Range Status 11/13/2024 26 22 - 30 mmol/L Final Albumin Date Value Ref Range Status 11/13/2024 4.5 3.9 - 4.9 g/dL Final ALT Date Value Ref Range Status 11/13/2024 10 7 - 38 U/L Final AST Date Value Ref Range Status 11/13/2024 13 13 - 35 U/L Final Gamma-Glutamyltransferase (GGT), Serum: No results found for: GGT Vitamin B12: No components found for: [id number] Vitamin D, Total: No results found for: VITD Thyroid Stimulati (more content not included)... [facility] 05-07-2025 History of Presen t illness Narrative Images from the original note were not included. FOLLOW UP - PSYCHIATRIC PROGRESS NOTE Visit Type: Virtual Visit utilizing two-way audio and video for at least a portion of the visit. Consent for virtual visit obtained verbally. Confidentiality limitations with virtual visits reviewed with the patient and guardian, if present, who have accepted the risk verbally prior to proceeding with encounter. I have communicated my name and active licensure. The patient's identity and physical location were verified at the time of this visit. Either the patient or their legal counter sales representative has been informed of the risks and benefits of -- and alternatives to -- treatment through a remote evaluation and consents to proceed with the evaluation remotely. Recording using [employer] software for draft documentation of the visit was discussed with the patient/authorized counter sales representative; all questions welcomed and answered. Patient/authorized counter sales representative agreed to proceed CC: Outpatient follow-up and safety monitoring of previously prescribed psychiatric medications. HPI: Rajesh Escoto is a 44-year-old female with a history of ADHD and anxiety, presenting for follow-up. ADHD: - Current medication regimen includes Adderall 20 mg extended release and a 10 mg immediate release booster. - Reports improved symptom management with current medication regimen. - Denies interference with sleep from the booster dose. - Consistent with medication adherence, noting previous struggles with consistency. Anxiety: - Experiencing increased anxiety related to daughter's recent graduation and potential plans to move out with her boyfriend. - Concerns about daughter's future plans and decision-making. - Reports difficulty sleeping due to anxiety about daughter's situation. - Using hydroxyzine PRN for sleep; has a nearly full bottle remaining. Risks and benefits of the medication, including any black box warnings, were discussed with the patient. Interval Progress: Slightly worse due to psychosocial stressors PATIENT DATA: Generalized Anxiety Disorder Scale (ALVARADO-7) 12/24/2024 01/09/2025 05/06/2025 ALVARADO - 7 SCORES Score 7 2 1 (0-4) minimal anxiety, (5-9) mild anxiety, (10-14) moderate anxiety, (15-21) severe anxiety Patient Health Questionnaire (PHQ-9) 12/24/2024 01/09/2025 05/06/2025 PHQ-9 Score 6 6 1 (0-4) minimal depression, (5-9) mild depression, (10-14) moderate depression, (15-19) moderately severe depression, (20-27) severe depression PAST MEDICAL HISTORY Diagnosis Date Anxiety PAST SURGICAL HISTORY Procedure Laterality Date SNGL NONE TUBAL LIGATION ALLERGIES No Known Allergies Current Outpatient Medications on File Prior to Visit Medication Sig dextroamphetamine-amphetamine (ADDERALL) 10 mg tablet Take 1 tablet by mouth every afternoon for 30 days. amphetamine-dextroamphetamine XR (ADDERALL XR) 20 mg capsule Take 1 capsule by mouth every morning for 30 days. levonorgestrel (MIRENA) 20 mcg/24 hours (5-6 yrs) 52 mg IUD 1 Each by INTRAUTERINE route as directed. No current facility-administered medications on file prior to visit. ROS: See HPI PFSH: See HPI VITAL SIGNS: There were no vitals filed for this visit. Last 3 Encounter BP Readings: Date: BP: 10/11/2024 124/60 10/03/2024 138/72 09/29/2024 138/92 Labwork: CBC and Differential: WBC Date Value Ref Range Status 06/02/2022 8.58 3.70 - 11.00 k/uL Final RBC Date Value Ref Range Status 06/02/2022 5.15 3.90 - 5.20 m/uL Final Hematocrit Date Value Ref Range Status 06/02/2022 48.1 (H) 36.0 - 46.0 % Final MCV Date Value Ref Range Status 06/02/2022 93.4 80.0 - 100.0 fL Final MCH Date Value Ref Range Status 06/02/2022 30.9 26.0 - 34.0 pg Final MCHC Date Value Ref Range Status 06/02/2022 33.1 30.5 - 36.0 g/dL Final Platelet Count Date Value Ref Range Status 09/17/2020 272 150 - 400 k/uL Final MPV Date Value Ref Range Status 09/17/2020 10.5 9.0 - 12.7 fL Final Comprehensive Metabolic Panel: BUN Date Value Ref Range Status 11/13/2024 11 7 - 21 mg/dL Final Creatinine Date Value Ref Range Status 11/13/2024 0.69 0.58 - 0.96 mg/dL Final Sodium Date Value Ref Range Status 11/13/2024 140 136 - 144 mmol/L Final Potassium Date Value Ref Range Status 11/13/2024 4.0 3.7 - 5.1 mmol/L Final CO2 Date Value Ref Range Status 11/13/2024 26 22 - 30 mmol/L Final Albumin Date Value Ref Range Status 11/13/2024 4.5 3.9 - 4.9 g/dL Final ALT Date Value Ref Range Status 11/13/2024 10 7 - 38 U/L Final AST Date Value Ref Range Status 11/13/2024 13 13 - 35 U/L Final Gamma-Glutamyltransferase (GGT), Serum: No results found for: GGT Vitamin B12: No components found for: [id number] Vitamin D, Total: No results found for: VITD Thyroid Stimulating Hormone (TSH): TSH Date Value Ref Range Status 11/13/2024 1.980 0.270 - 4.200 mIU/L Final Comment: If the patient is , TSH reference range varies by gestational period: First Trimester (weeks 9-12): 0.180-2.990 mIU/L Second Trimester: 0.110-3.980 mIU/L Third Trimester: 0.480-4.710 mIU/L Lemuel Martin et al. A Practical Approach for the Verifications and Determination of Site- and Trimester-Specific Reference Intervals for Thyroid Function tests in . Thyroid, 2019:29:3:412-420. Jordy Velez, et al. 2017 Guidelines of the [place] [employer] for the Diagnosis and Management of Thyroid Disease during and the . Thyroid, 2017:27:3:315-389. Hemoglobin A1C: No results found for: HGBA1C Lipid Panel: No results found for: CHOL, TRIG, HDL, LDL MENTAL STATUS EXAM: Mental Status Exam General/Sensorium: Alert Orientation: AAOx3 Appearance: Casually dressed and appropriately groomed Eye contact: Appropriate Demeanor: Appropriately interactive Motor activity: Calm Speech: Articulate with appropriate rhythm and volume Mood: Anxious Affect: - tearful at times when discussing stressors Thought process: Linear, logical, and goal-directed Associations: Normal Thought content: Discussing stressors and focused on history, symptoms, and management Suicidal ideation: SI: no Plan: no Intent: no Homicidal ideation: HI: no Plan: no Intent: no Abnormal/psychotic thoughts: Absent Perceptions: She does not appear internally stimulated. Intelligence: Above average Attention: - improved with Adderall Memory: Short-term: Intact Long-term: Intact Language: Intact Fund of knowledge: Appropriate Insight: Good Judgment: Good Gait: Not observed Station: Sitting DATA REVIEWED: Psychiatric scales, Electronic medical record, lab results and The PDMP report was reviewed and found to be appropriate without any signs of misuse or diversion. Assessment & Plan 1. 1. Attention deficit hyperactivity disorder (ADHD), combined type (F90.2) Symptoms well-managed with current medication regimen of Adderall 20 mg extended release with a 10 mg immediate release booster. No reported interference with sleep. - Continue current medication regimen. - Sent prescriptions for 3 months of Adderall 20 mg extended release and 10 mg immediate release to [facility]. 2. Psychosocial stressors (Z65.8) Significant stress related to daughter's potential decision to move out with her boyfriend. Concerns about daughter's future plans and independence. - Discussed importance of maintaining open communication with daughter and seeking support from trusted adults to provide guidance. - Encouraged patient to focus on self-care and utilize support systems. 3. ALVARADO (generalized anxiety disorder) (F41.1) Social anxiety disorder (F40.10) Symptoms stable with current treatment. No increase in anxiety reported with current medication regimen. - Continue current management. - Monitor for any changes in anxiety levels. 4. Encounter for long-term (current) use of medications (Z79.899) Patient is on long-term use of Adderall and hydroxyzine. No issues with medication adherence or side effects reported. - Refill hydroxyzine not needed at this time. - Follow-up in 3 months to reassess medication efficacy and need for lab work. - Scheduled follow-up appointment for July 30 at 9:00 AM. Prescriptions given See above Risks and benefits of the medication, including any black box warnings, were discussed with the patient. Patient is aware to reach out with any questions, concerns, or worsening of symptoms prior to the next appointment. Patient educated on risks of substance use in combination with medications and advised that any substance use along with medications may alter their effectiveness. Medical Decision Making: Problems: Moderate: 1+ chronic illnesses with change and 2+ stable chronic illnesses Risk: Moderate: Moderate risk from testing/treatment and Drug management Medical Decision Making Level: 4 - Moderate ADD ON PSYCHOTHERAPY CODE : No SIGNATURE: Renetta Hancock APRN.VINI PATIENT NAME: Rajesh Escoto DATE: May 10, 2025 TIME: 2:20 AM documented in this encounter [facility] 05-04-2025 Telephone encounter Note MC message sent to pt with VV day/time change. Genia Dallas LPN [facility] 05-04-2025 Miscellaneous Notes MC message sent to pt with VV day/time change. Genia Dallas LPN documented in this encounter [facility] 04-20-2025 Miscellaneous Notes Message to pt, office visit rescheduled from 05/01 to 05/08 @ 10:30. Pt to call and reschedule if unable to make visit this day. Genia Dallas LPN documented in this encounter [facility] 04-20-2025 Telephone encounter Note Message to pt, office visit rescheduled from 05/01 to 05/08 @ 10:30. Pt to call and reschedule if unable to make visit this day. Genia Dallas LPN [facility] 02-19-2025 Telephone encounter Note The PDMP report was reviewed and found to be appropriate without any signs of misuse or diversion. 30 day refill provided. Patient is scheduled with this provider for a follow up appointment next month. [facility] 02-19-2025 Miscellaneous Notes The PDMP report was reviewed and found to be appropriate without any signs of misuse or diversion. 30 day refill provided. Patient is scheduled with this provider for a follow up appointment next month. Last: 01/10/25 TREATMENT PLAN: Take Adderall 20 mg XR capsule in the morning and start taking Adderall 10 mg IR tablet in the afternoon to address ADHD symptoms later in the day. Utilize Hydroxzyine 25 mg as needed at bedtime to address sleep difficulties and anxiety. EKG result and monitoring lab work was reviewed and it was WNL. Follow up in 2 months. Next: 03/13/25 documented in this encounter [facility] 02-19-2025 Telephone encounter Note Last: 01/10/25 TREATMENT PLAN: Take Adderall 20 mg XR capsule in the morning and start taking Adderall 10 mg IR tablet in the afternoon to address ADHD symptoms later in the day. Utilize Hydroxzyine 25 mg as needed at bedtime to address sleep difficulties and anxiety. EKG result and monitoring lab work was reviewed and it was WNL. Follow up in 2 months. Next: 03/13/25 [facility] 01-10-2025 Instructions Renetta Hancock APRN.VINI - 01/10/2025 6:50 PM EST TREATMENT PLAN: Take Adderall 20 mg XR capsule in the morning and start taking Adderall 10 mg IR tablet in the afternoon to address ADHD symptoms later in the day. Utilize Hydroxzyine 25 mg as needed at bedtime to address sleep difficulties and anxiety. EKG result and monitoring lab work was reviewed and it was WNL. Follow up in 2 months. For those experiencing a suicidal crisis: --call the National Suicide Prevention Lifeline at 988 (463-398-8536) --text the Crisis Text Line (text HOME to 766114) --call 911 and let them know you are having a mental health crisis or go to your nearest Emergency Room for stabilization. --You can also call Mobile Crisis at [phone]. -- You may call the department appointment line at [phone] to schedule your appointment. -- Please call my nurse at [phone] or send me a message in [employer] with any questions or concerns between appointments. documented in this encounter [facility] 01-10-2025 History of Presen t illness Narrative Images from the original note were not included. FOLLOW UP - PSYCHIATRIC PROGRESS NOTE PATIENT: Rajesh Escoto DATE: January 09, 2025 Visit Type: Virtual Visit utilizing two-way audio and video for at least a portion of the visit. Consent for virtual visit obtained verbally. Confidentiality limitations with virtual visits reviewed with the patient and guardian, if present, who have accepted the risk verbally prior to proceeding with encounter. I have communicated my name and active licensure. The patient's identity and physical location were verified at the time of this visit. Either the patient or their legal counter sales representative has been informed of the risks and benefits of -- and alternatives to -- treatment through a remote evaluation and consents to proceed with the evaluation remotely. All information is from Patient report except when noted. This evaluation is NOT intended for forensic, disability or child custody purposes. CC: Presenting today for follow up regarding psychiatric medication management. HPI: Treatment Plan from Last Visit on 09/18/2024: TREATMENT PLAN: Start Adderall 15 mg XR once every morning to address ADHD symptoms. Send an update via [employer] in 3 weeks to report how this dose is supporting her symptoms. May need to increase to 20 mg if tolerating the medication considering the severity of symptoms. Discontinue Wellbutrin due to lack of benefit. Utilize hydroxyzine 25 mg at bedtime to address anxiety and sleep difficulties. Discontinue using marijuana gummies and work on reducing alcohol use socially. Complete monitoring lab work. Complete EKG and vitals at the next in person appointment. Today Rajesh shares that she takes Adderall 20 mg XR at 6:30 am. Around 12 pm to 1 pm, it wears off and she feels excessively tired. Like painfully tired. After work, she feels that she has to take a nap and will nap from one to one and half hour Has work related stress, so she is not able to take the medication later in the morning. Needs support in addressing ADHD symptoms in both work and home setting. Has noticed that Adderall is helping with mood dysregulation and anxiety. On the weekends, if she doesn't take it, she will notice that she is struggling with irritability. On the weekends, she will notice this fatigue around 3 pm as she is able to take the Adderall later. She finds herself trying to get out of social obligations because she is so tired. Since I have been taking these medications, I can't even tell you the calmness that I have felt. Her and best friend have noticed a difference. Taking a small dose of Hydroxyzine has helped with her sleep difficulties. Interval Progress: Slightly improved PATIENT DATA: Generalized Anxiety Disorder Scale (ALVARADO-7) 11/19/2024 12/24/2024 01/09/2025 ALVARADO - 7 SCORES Score 6 7 2 (0-4) minimal anxiety, (5-9) mild anxiety, (10-14) moderate anxiety, (15-21) severe anxiety Patient Health Questionnaire (PHQ-9) 11/19/2024 12/24/2024 01/09/2025 PHQ-9 Score 6 6 6 (0-4) minimal depression, (5-9) mild depression, (10-14) moderate depression, (15-19) moderately severe depression, (20-27) severe depression PAST MEDICAL HISTORY Diagnosis Date Anxiety PAST SURGICAL HISTORY Procedure Laterality Date SNGL NONE TUBAL LIGATION ALLERGIES No Known Allergies Current Outpatient Medications on File Prior to Visit Medication Sig amphetamine-dextroamphetamine XR (ADDERALL XR) 20 mg capsule Take 1 capsule by mouth every morning for 30 days. predniSONE (DELTASONE) 10 mg tablet Take 4 tabs daily x 3 days, then 3 tabs x 3 days, 2 tabs x 3 days, then 1 tab x3 days with food. levonorgestrel (MIRENA) 20 mcg/24 hours (5-6 yrs) 52 mg IUD 1 Each by INTRAUTERINE route as directed. No current facility-administered medications on file prior to visit. ROS: See HPI PFSH: See HPI VITAL SIGNS: There were no vitals filed for this visit. Last 3 Encounter BP Readings: Date: BP: 10/11/2024 124/60 10/03/2024 138/72 09/29/2024 138/92 MENTAL STATUS EXAMINATION: Appearance: Well dressed, well groomed Behavior: Behaves appropriately during the encounter Social relatedness: Euthymic Speech/Language: The patient demonstrates appropriate tone, prosody, amadou, phonetics, and syntax Mood: concerned Affect: Full and appropriate to topic Orientation: Person, Place, Time and Situation Associations: Intact and linear Hallucinations: None Delusions: None Suicidal Ideation: No suicidal ideation, intent or plan. Homicidal Ideation: No homicidal ideation, intent or plan. Insight: Appropriate Judgment: Appropriate DATA REVIEWED: Psychiatric scales, Electronic medical record, Labs, and The PDMP report was reviewed and found to be appropriate without any signs of misuse or diversion. DIAGNOSIS: Attention deficit hyperactivity disorder (adhd), combined type (primary encounter diagnosis) Alvarado (generalized anxiety disorder) Encounter for long-term (current) use of medications Medication side effect, initial encounter GAF: -60-51 Moderate symptoms or moderate difficulty in social, occupational or school functioning. TREATMENT PLAN: Take Adderall 20 mg XR capsule in the morning and start taking Adderall 10 mg IR tablet in the afternoon to address ADHD symptoms later in the day. Utilize Hydroxzyine 25 mg as needed at bedtime to address sleep difficulties and anxiety. EKG result and monitoring lab work was reviewed and it was WNL. Follow up in 2 months. MEDICATION CHANGES: Prescriptions given See above. Risks and benefits of the medication, including any black box warnings, were discussed with the patient. Patient is aware to reach out with any questions, concerns, or worsening of symptoms prior to the next appointment. Patient educated on risks of substance use in combination with medications and advised that any substance use along with medications may alter their effectiveness. Follow Up: See Treatment Plan Medical Decision Making: Problems: Moderate: 1+ chronic illnesses with change and 2+ stable chronic illnesses Data: Unique source(s) for external note(s) reviewed: 3+ Unique test result(s) reviewed: 3+ Independent interpretation of test from other physician/QHCP Risk: Moderate: Moderate risk from testing/treatment and Drug management Medical Decision Making Level: 4 - Moderate ADD ON PSYCHOTHERAPY CODE : No SIGNATURE: Renetta Hancock APRN.CNP PATIENT NAME: Rajesh Escoto DATE: January 09, 2025 TIME: 11:29 PM documented in this encounter [facility] 01-10-2025 Note HNO ID: [id number] Author: RENETTA HANCOCK APRN.CNP Service: ? Author Type: Nurse Practitioner Type: Progress Notes Filed: 01/10/2025 18:51 Note Text: FOLLOW UP - PSYCHIATRIC PROGRESS NOTE PATIENT: Rajesh Escoto DATE: January 09, 2025 Visit Type: Virtual Visit utilizing two-way audio and video for at least a portion of the visit. Consent for virtual visit obtained verbally. Confidentiality limitations with virtual visits reviewed with the patient and guardian, if present, who have accepted the risk verbally prior to proceeding with encounter. I have communicated my name and active licensure. The patient's identity and physical location were verified at the time of this visit. Either the patient or their legal counter sales representative has been informed of the risks and benefits of -- and alternatives to -- treatment through a remote evaluation and consents to proceed with the evaluation remotely. All information is from Patient report except when noted. This evaluation is NOT intended for forensic, disability or child custody purposes. CC: Presenting today for follow up regarding psychiatric medication management. HPI: Treatment Plan from Last Visit on 09/18/2024: TREATMENT PLAN: Start Adderall 15 mg XR once every morning to address ADHD symptoms. Send an update via [employer] in 3 weeks to report how this dose is supporting her symptoms. May need to increase to 20 mg if tolerating the medication considering the severity of symptoms. Discontinue Wellbutrin due to lack of benefit. Utilize hydroxyzine 25 mg at bedtime to address anxiety and sleep difficulties. Discontinue using marijuana gummies and work on reducing alcohol use socially. Complete monitoring lab work. Complete EKG and vitals at the next in person appointment. Today Rajesh shares that she takes Adderall 20 mg XR at 6:30 am. Around 12 pm to 1 pm, it wears off and she feels excessively tired. Like painfully tired. After work, she feels that she has to take a nap and will nap from one to one and half hour Has work related stress, so she is not able to take the medication later in the morning. Needs support in addressing ADHD symptoms in both work and home setting. Has noticed that Adderall is helping with mood dysregulation and anxiety. On the weekends, if she doesn't take it, she will notice that she is struggling with irritability. On the weekends, she will notice this fatigue around 3 pm as she is able to take the Adderall later. She finds herself trying to get out of social obligations because she is so tired. Since I have been taking these medications, I can't even tell you the calmness that I have felt. Her and best friend have noticed a difference. Taking a small dose of Hydroxyzine has helped with her sleep difficulties. Interval Progress: Slightly improved PATIENT DATA: Generalized Anxiety Disorder Scale (ALVARADO-7) 11/19/2024 12/24/2024 01/09/2025 ALVARADO - 7 SCORES Score 6 7 2 (0-4) minimal anxiety, (5-9) mild anxiety, (10-14) moderate anxiety, (15-21) severe anxiety Patient Health Questionnaire (PHQ-9) 11/19/2024 12/24/2024 01/09/2025 PHQ-9 Score 6 6 6 (0-4) minimal depression, (5-9) mild depression, (10-14) moderate depression, (15-19) moderately severe depression, (20-27) severe depression PAST MEDICAL HISTORY Diagnosis Date Anxiety PAST SURGICAL HISTORY Procedure Laterality Date SNGL NONE TUBAL LIGATION ALLERGIES No Known Allergies Current Outpatient Medications on File Prior to Visit Medication Sig amphetamine-dextroamphetamine XR (ADDERALL XR) 20 mg capsule Take 1 capsule by mouth every morning for 30 days. predniSONE (DELTASONE) 10 mg tablet Take 4 tabs daily x 3 days, then 3 tabs x 3 days, 2 tabs x 3 days, then 1 tab x3 days with food. levonorgestrel (MIRENA) 20 mcg/24 hours (5-6 yrs) 52 mg IUD 1 Each by INTRAUTERINE route as directed. No current facility-administered medications on file prior to visit. ROS: See HPI PFSH: See HPI VITAL SIGNS: There were no vitals filed for this visit. Last 3 Encounter BP Readings: Date: BP: 10/11/2024 124/60 10/03/2024 138/72 09/29/2024 138/92 MENTAL STATUS EXAMINATION: Appearance: Well dressed, well groomed Behavior: Behaves appropriately during the encounter Social relatedness: Euthymic Speech/Language: The patient demonstrates appropriate tone, prosody, amadou, phonetics, and syntax Mood: concerned Affect: Full and appropriate to topic Orientation: Person, Place, Time and Situation Associations: Intact and linear Hallucinations: None Delusions: None Suicidal Ideation: No suicidal ideation, intent or plan. Homicidal Ideation: No homicidal ideation, intent or plan. Insight: Appropriate Judgment: Appropriate DATA REVIEWED: Psychiatric scales, Electronic medical record, Labs, and The PDMP report was reviewed and found to be appropriate without any signs of m (more content not included)... [facility] 01-09-2025 Note HNO ID: [id number] Author: GENIA DALLAS LPN Service: ? Author Type: LICENSED NURSE Type: Progress Notes Filed: 01/15/2025 09:05 Note Text: Order placed for EKG. Patient arrived at scheduled time, education provided on procedure, patient agrees to continue. Genia Dallas LPN [facility] 01-09-2025 History of Presen t illness Narrative Order placed for EKG. Patient arrived at scheduled time, education provided on procedure, patient agrees to continue. Genia Dallas LPN documented in this encounter [facility] 12-12-2024 Telephone encounter Note The PDMP report was reviewed and found to be appropriate without any signs of misuse or diversion. 30 day refill provided. F/U scheduled for 12/26/2024 with this provider. [facility] 12-12-2024 Miscellaneous Notes The PDMP report was reviewed and found to be appropriate without any signs of misuse or diversion. 30 day refill provided. F/U scheduled for 12/26/2024 with this provider. Last: 09/18/24 TREATMENT PLAN: Start Adderall 15 mg XR once every morning to address ADHD symptoms. Send an update via [employer] in 3 weeks to report how this dose is supporting her symptoms. May need to increase to 20 mg if tolerating the medication considering the severity of symptoms. Discontinue Wellbutrin due to lack of benefit. Utilize hydroxyzine 25 mg at bedtime to address anxiety and sleep difficulties. Discontinue using marijuana gummies and work on reducing alcohol use socially. Complete monitoring lab work. Complete EKG and vitals at the next in person appointment. Next: 12/26/24 documented in this encounter [facility] 12-12-2024 Telephone encounter Note Last: 09/18/24 TREATMENT PLAN: Start Adderall 15 mg XR once every morning to address ADHD symptoms. Send an update via [employer] in 3 weeks to report how this dose is supporting her symptoms. May need to increase to 20 mg if tolerating the medication considering the severity of symptoms. Discontinue Wellbutrin due to lack of benefit. Utilize hydroxyzine 25 mg at bedtime to address anxiety and sleep difficulties. Discontinue using marijuana gummies and work on reducing alcohol use socially. Complete monitoring lab work. Complete EKG and vitals at the next in person appointment. Next: 12/26/24 [facility] 11-14-2024 Telephone encounter Note The PDMP report was reviewed and found to be appropriate without any signs of misuse or diversion. 30 day refill provided. Patient has an appointment next week with the provider. [facility] 11-14-2024 Miscellaneous Notes The PDMP report was reviewed and found to be appropriate without any signs of misuse or diversion. 30 day refill provided. Patient has an appointment next week with the provider. Last: 09/10/24 REATMENT PLAN: Start Adderall 15 mg XR once every morning to address ADHD symptoms. Send an update via [employer] in 3 weeks to report how this dose is supporting her symptoms. May need to increase to 20 mg if tolerating the medication considering the severity of symptoms. Discontinue Wellbutrin due to lack of benefit. Utilize hydroxyzine 25 mg at bedtime to address anxiety and sleep difficulties. Discontinue using marijuana gummies and work on reducing alcohol use socially. Complete monitoring lab work. Complete EKG and vitals at the next in person appointment. Next: 11/21/24 documented in this encounter [facility] 11-14-2024 Telephone encounter Note Last: 09/10/24 REATMENT PLAN: Start Adderall 15 mg XR once every morning to address ADHD symptoms. Send an update via [employer] in 3 weeks to report how this dose is supporting her symptoms. May need to increase to 20 mg if tolerating the medication considering the severity of symptoms. Discontinue Wellbutrin due to lack of benefit. Utilize hydroxyzine 25 mg at bedtime to address anxiety and sleep difficulties. Discontinue using marijuana gummies and work on reducing alcohol use socially. Complete monitoring lab work. Complete EKG and vitals at the next in person appointment. Next: 11/21/24 [facility] 10-11-2024 Note HNO ID: [id number] Author: FARZANA MAK MD Service: ? Author Type: Physician Type: Progress Notes Filed: 10/11/2024 11:09 Note Text: Land Surveying Manager offered: Patient declinesShari Noble is a 44 year old who presents for an annual gynecologic exam without complaints. Started Adderrall- doing well. Menses: no menses - Mirena IUD. Contraception: IUD and tubal sterilization HPV vaccine: No Last Pap: 09/23/2020 normal HPV: 09/19/2020 negative History of abnormal pap: No Last mammogram: ending Sexually active: Yes History of STDS: None Patient concerns for STD exposure: No. 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 History Comments: Sexual Activity: Yes; Male Contraception: Tubal Ligation PAST MEDICAL HISTORY Diagnosis Date Anxiety PAST SURGICAL HISTORY Procedure Laterality Date SNGL NONE TUBAL LIGATION FAMILY HISTORY Problem Relation Age of Onset None Mother other (unknown) Father SOCIAL HISTORY Social History Tobacco Use Smoking status: Former Current packs/day: 0.00 Types: Cigarettes Quit date: 01/13/2013 Years since quittin.7 Smokeless tobacco: Never Tobacco comments: only social smoker Vaping Use Vaping status: Never Used Substance Use Topics Alcohol use: No Drug use: No REVIEW OF SYSTEMS Abdomen: No abdominal pain, nausea, vomiting, diarrhea, or constipation. No bloating, early satiety, indigestion, or increased flatulence. Bladder: No dysuria, gross hematuria, urinary frequency, urinary urgency, or incontinence. Breast: No breast lumps, nipple d/c, overlying skin changes, redness or skin retraction. Allergies and current medication updated:Yes SENSITIVE EXAM: The sensitive examination was discussed with the Patient or Patient's Authorized Consulting Practice Director. As applicable, any other physician, advance practice provider, medical student, or other health professional student that will be observing or involved in the sensitive examination for educational or training purposes was discussed with the Patient or Authorized Consulting Practice Director. The Patient or Authorized Consulting Practice Director has agreed to proceed with the sensitive examination. (Sensitive examination includes inspection and/or palpation of the breasts, pelvis, prostate and anorectal regions). EXAM: BP 124/6 Ht 5' 4.5 (1.64m) Wt 157 lb (71.2kg) LMP 09/15/2024 BMI 26.54 kg/(m2). GENERAL: pleasant, female in no apparent distress HEENT: Normocephalic, atraumatic, mucus membranes moist, and no lesions NECK: Supple, full range of motion, no adenopathy, and thyroid normal DERMATOLOGY: Normal, without lesions, non-icteric, and non-hirsute BREAST: soft, non-tender, symmetric, no dominant mass, normal nipple-areolar complex, no lymphadenopathy, and no nipple discharge ABDOMEN: soft, non-tender, and no masses PELVIC: external genitalia normal, normal Bartholin's glands, urethra, Eskridge's glands, no vulvar lesions, no cervical lesions, good vaginal support, physiologic discharge present, normal appearing perineal body and perianal region BIMANUAL: uterus normal size, shape and consistency, no adnexal masses, and non-tender RECTOVAGINAL: deferred. NEURO: alert and oriented x3,exam grossly non-focal EXTREMITIES: normal ASSESSMENT/PLAN: 1) Health maintenance: Pap/HPV up to date. Mammogram up to date . Nutrition, exercise and routine health maintenance exams reviewed. Calcium/Vitamin D supplementation information provided. Colon cancer screening: start at age 45 2) Contraception: IUD and tubal sterilization. Contraceptive options reviewed and information provided. 3) STD screening: Declined STD check. 4) Follow up one year or sooner as needed Farzana Traylor MD [facility] 10-11-2024 History of Presen t illness Narrative Land Surveying Manager offered: Patient declines. Rajesh is a 44 year old who presents for an annual gynecologic exam without complaints. Started Adderrall- doing well. Menses: no menses - Mirena IUD. Contraception: IUD and tubal sterilization HPV vaccine: No Last Pap: 09/23/2020 normal HPV: 09/19/2020 negative History of abnormal pap: No Last mammogram: ending Sexually active: Yes History of STDS: None Patient concerns for STD exposure: No. 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 History Comments: Sexual Activity: Yes; Male Contraception: Tubal Ligation PAST MEDICAL HISTORY Diagnosis Date Anxiety PAST SURGICAL HISTORY Procedure Laterality Date SNGL NONE TUBAL LIGATION FAMILY HISTORY Problem Relation Age of Onset None Mother other (unknown) Father SOCIAL HISTORY Social History Tobacco Use Smoking status: Former Current packs/day: 0.00 Types: Cigarettes Quit date: 01/13/2013 Years since quittin.7 Smokeless tobacco: Never Tobacco comments: only social smoker Vaping Use Vaping status: Never Used Substance Use Topics Alcohol use: No Drug use: No REVIEW OF SYSTEMS Abdomen: No abdominal pain, nausea, vomiting, diarrhea, or constipation. No bloating, early satiety, indigestion, or increased flatulence. Bladder: No dysuria, gross hematuria, urinary frequency, urinary urgency, or incontinence. Breast: No breast lumps, nipple d/c, overlying skin changes, redness or skin retraction. Allergies and current medication updated:Yes SENSITIVE EXAM: The sensitive examination was discussed with the Patient or Patient's Authorized Consulting Practice Director. As applicable, any other physician, advance practice provider, medical student, or other health professional student that will be observing or involved in the sensitive examination for educational or training purposes was discussed with the Patient or Authorized Consulting Practice Director. The Patient or Authorized Consulting Practice Director has agreed to proceed with the sensitive examination. (Sensitive examination includes inspection and/or palpation of the breasts, pelvis, prostate and anorectal regions). EXAM: BP 124/6 Ht 5' 4.5 (1.64m) Wt 157 lb (71.2kg) LMP 09/15/2024 BMI 26.54 kg/(m^2). GENERAL: pleasant, female in no apparent distress HEENT: Normocephalic, atraumatic, mucus membranes moist, and no lesions NECK: Supple, full range of motion, no adenopathy, and thyroid normal DERMATOLOGY: Normal, without lesions, non-icteric, and non-hirsute BREAST: soft, non-tender, symmetric, no dominant mass, normal nipple-areolar complex, no lymphadenopathy, and no nipple discharge ABDOMEN: soft, non-tender, and no masses PELVIC: external genitalia normal, normal Bartholin's glands, urethra, Eskridge's glands, no vulvar lesions, no cervical lesions, good vaginal support, physiologic discharge present, normal appearing perineal body and perianal region BIMANUAL: uterus normal size, shape and consistency, no adnexal masses, and non-tender RECTOVAGINAL: deferred. NEURO: alert and oriented x3,exam grossly non-focal EXTREMITIES: normal ASSESSMENT/PLAN: 1) Health maintenance: Pap/HPV up to date. Mammogram up to date . Nutrition, exercise and routine health maintenance exams reviewed. Calcium/Vitamin D supplementation information provided. Colon cancer screening: start at age 45 2) Contraception: IUD and tubal sterilization. Contraceptive options reviewed and information provided. 3) STD screening: Declined STD check. 4) Follow up one year or sooner as needed Farzana Traylor MD documented in this encounter [facility] 10-11-2024 History of Presen t illness Narrative Radiology Service Progress Note PATIENT NAME: Rajesh Escoto DATE OF SERVICE: October 11, 2024 TIME: 10:41 AM PATIENT IDENTITY VERIFICATION COMPLETED USING TWO (2) IDENTIFIERS: Name and Date of confirmed by patient verbally. FALL SCREENING: Has the patient had 2 falls in the last year or 1 fall with injury or currently using an Ambulatory Assistive Device (Walker, Cane, Wheelchair, Crutches, etc.)? No PATIENT GENDER DATA: Female. status: : No status: NO. PATIENT RELEVANT IMPLANT DATA REVIEWED: Not Applicable PATIENT PRESENTS WITH AN IMPLANTABLE OR ATTACHED STUDIO HAND: No RADIOLOGY DEPARTMENT: Mammography PERIPHERAL IV DATA: Not applicable SIGNED BY: Maximo Watkins October 11, 2024 10:41 AM documented in this encounter [facility] 10-11-2024 Note HNO ID: [id number] Author: MARIXA CONNORS Mammo Tech Service: ? Author Type: Choral Teacher Type: Progress Notes Filed: 10/11/2024 10:42 Note Text: Radiology Service Progress Note PATIENT NAME: Rajesh Escoto DATE OF SERVICE: October 11, 2024 TIME: 10:41 AM PATIENT IDENTITY VERIFICATION COMPLETED USING TWO (2) IDENTIFIERS: Name and Date of confirmed by patient verbally. FALL SCREENING: Has the patient had 2 falls in the last year or 1 fall with injury or currently using an Ambulatory Assistive Device (Walker, Cane, Wheelchair, Crutches, etc.)? No PATIENT GENDER DATA: Female. status: : No status: NO. PATIENT RELEVANT IMPLANT DATA REVIEWED: Not Applicable PATIENT PRESENTS WITH AN IMPLANTABLE OR ATTACHED STUDIO HAND: No RADIOLOGY DEPARTMENT: Mammography PERIPHERAL IV DATA: Not applicable SIGNED BY: Maximo Watkins October 11, 2024 10:41 AM [facility] 10-03-2024 Note HNO ID: [id number] Author: PHI ESTEVEZ APRN.REGULATORY SERVICES CONSULTANT Service: ? Author Type: Nurse Practitioner Type: Progress Notes Filed: 10/03/2024 08:13 Note Text: Subjective HPI Nontoxic-appearing female presents urgent care chief complaint rash. Duration of symptoms 1 week. Associated symptoms of pruritic rash. Presents today for evaluation. Was seen by me on Wednesday. Diagnosed with rash. Placed on triamcinolone and mupirocin. States symptoms have worsened. Rash has popped up in new places. Denies any significant pain. No recent medication changes antibiotic use. Overall feels well. No fevers nausea or vomiting. Denies chance of . Is not breast-feeding. Past medical history prescription medications allergies reviewed. .Patient presents with: Rash: seen on Wednesday given 2 creams, increased itching PAST MEDICAL HISTORY Diagnosis Date Anxiety PAST SURGICAL HISTORY Procedure Laterality Date SNGL NONE TUBAL LIGATION ALLERGIES Patient has no known allergies. MEDICATIONS triamcinolone acetonide (KENALOG) 0.1 % cream Apply 1 application to affected area three times a day for 7 days. Apply sparingly to area for rash/itching. mupirocin (BACTROBAN) 2 % ointment Apply to affected area three times a day for 5 days. amphetamine-dextroamphetamine XR (ADDERALL XR) 15 mg capsule Take 1 capsule by mouth every morning for 30 days. hydrOXYzine HCl (ATARAX) 25 mg tablet Take 1 tablet by mouth daily at bedtime. levonorgestrel (MIRENA) 20 mcg/24 hours (5-6 yrs) 52 mg IUD 1 Each by INTRAUTERINE route as directed. FAMILY HISTORY Problem Relation Age of Onset None Mother other (unknown) Father Social History Tobacco Use Smoking status: Former Current packs/day: 0.00 Types: Cigarettes Quit date: 01/13/2013 Years since quittin.7 Smokeless tobacco: Never Tobacco comments: only social smoker Vaping Use Vaping status: Never Used Substance Use Topics Alcohol use: No Drug use: No BP 138/72 Pulse 84 Temp 36.2 ?C (97.2 ?F) Resp 16 Wt 74.2 kg (163 lb 9.3 oz) LMP 09/15/2024 (Exact Date) SpO2 98% BMI 26.81 kg/m? Review of Systems Constitutional: Negative for chills, fever and malaise/fatigue. HENT: Negative for congestion, ear discharge, ear pain, sinus pain and sore throat. Eyes: Negative for blurred vision, pain, discharge and redness. Respiratory: Negative for cough, hemoptysis, sputum production, shortness of breath, wheezing and stridor. Cardiovascular: Negative for chest pain. Gastrointestinal: Negative for abdominal pain, diarrhea, nausea and vomiting. Musculoskeletal: Negative for myalgias. Skin: Positive for itching and rash. Neurological: Negative for dizziness and headaches. Objective Physical Exam Constitutional: General: She is not in acute distress. Appearance: She is not toxic-appearing. HENT: Head: Normocephalic. Nose: Nose normal. Eyes: Pupils: Pupils are equal, round, and reactive to light. Cardiovascular: Rate and Rhythm: Normal rate. Pulmonary: Effort: Pulmonary effort is normal. No respiratory distress. Musculoskeletal: Cervical back: Normal range of motion. Skin: General: Skin is warm and dry. Comments: Macular papular rash fluid-filled vesicles coalescing pattern noted with erythematous base on highlighted areas. No evidence of secondary bacterial infection. Spares mucosal membranes. Neurological: General: No focal deficit present. Mental Status: She is alert. ASSESSMENT/PLAN: 1. Rash - ICD9: 782.1, ICD10: R21 Diagnosed with rash. Suspicious of contact dermatitis. Placed on prednisone taper. Patient was educated on supportive therapies. Patient will follow up with primary care provider as needed. Patient was instructed to immediately proceed to emergency room for any new, worsening, or symptoms lasting longer than anticipated. The patient's clinical presentation is otherwise unremarkable at this time. Based on exam and clinical finding, the patient is stable for discharge. Plan of care was discussed with patient. Patient verbalizes understanding and agrees to plan of care. This note was generated using [employer] software. It may contain errors in wording, punctuation, or spelling. Phi Estevez APRN.[facility] 10-03-2024 History of Presen t illness Narrative Images from the original note were not included. Subjective HPI Nontoxic-appearing female presents urgent care chief complaint rash. Duration of symptoms 1 week. Associated symptoms of pruritic rash. Presents today for evaluation. Was seen by me on Wednesday. Diagnosed with rash. Placed on triamcinolone and mupirocin. States symptoms have worsened. Rash has popped up in new places. Denies any significant pain. No recent medication changes antibiotic use. Overall feels well. No fevers nausea or vomiting. Denies chance of . Is not breast-feeding. Past medical history prescription medications allergies reviewed. .Patient presents with: Rash: seen on Wednesday given 2 creams, increased itching PAST MEDICAL HISTORY Diagnosis Date Anxiety PAST SURGICAL HISTORY Procedure Laterality Date SNGL NONE TUBAL LIGATION ALLERGIES Patient has no known allergies. MEDICATIONS triamcinolone acetonide (KENALOG) 0.1 % cream Apply 1 application to affected area three times a day for 7 days. Apply sparingly to area for rash/itching. mupirocin (BACTROBAN) 2 % ointment Apply to affected area three times a day for 5 days. amphetamine-dextroamphetamine XR (ADDERALL XR) 15 mg capsule Take 1 capsule by mouth every morning for 30 days. hydrOXYzine HCl (ATARAX) 25 mg tablet Take 1 tablet by mouth daily at bedtime. levonorgestrel (MIRENA) 20 mcg/24 hours (5-6 yrs) 52 mg IUD 1 Each by INTRAUTERINE route as directed. FAMILY HISTORY Problem Relation Age of Onset None Mother other (unknown) Father Social History Tobacco Use Smoking status: Former Current packs/day: 0.00 Types: Cigarettes Quit date: 01/13/2013 Years since quittin.7 Smokeless tobacco: Never Tobacco comments: only social smoker Vaping Use Vaping status: Never Used Substance Use Topics Alcohol use: No Drug use: No BP 138/72 Pulse 84 Temp 36.2 C (97.2 F) Resp 16 Wt 74.2 kg (163 lb 9.3 oz) LMP 09/15/2024 (Exact Date) SpO2 98% BMI 26.81 kg/m Review of Systems Constitutional: Negative for chills, fever and malaise/fatigue. HENT: Negative for congestion, ear discharge, ear pain, sinus pain and sore throat. Eyes: Negative for blurred vision, pain, discharge and redness. Respiratory: Negative for cough, hemoptysis, sputum production, shortness of breath, wheezing and stridor. Cardiovascular: Negative for chest pain. Gastrointestinal: Negative for abdominal pain, diarrhea, nausea and vomiting. Musculoskeletal: Negative for myalgias. Skin: Positive for itching and rash. Neurological: Negative for dizziness and headaches. Objective Physical Exam Constitutional: General: She is not in acute distress. Appearance: She is not toxic-appearing. HENT: Head: Normocephalic. Nose: Nose normal. Eyes: Pupils: Pupils are equal, round, and reactive to light. Cardiovascular: Rate and Rhythm: Normal rate. Pulmonary: Effort: Pulmonary effort is normal. No respiratory distress. Musculoskeletal: Cervical back: Normal range of motion. Skin: General: Skin is warm and dry. Comments: Macular papular rash fluid-filled vesicles coalescing pattern noted with erythematous base on highlighted areas. No evidence of secondary bacterial infection. Spares mucosal membranes. Neurological: General: No focal deficit present. Mental Status: She is alert. ASSESSMENT/PLAN: 1. Rash - ICD9: 782.1, ICD10: R21 Diagnosed with rash. Suspicious of contact dermatitis. Placed on prednisone taper. Patient was educated on supportive therapies. Patient will follow up with primary care provider as needed. Patient was instructed to immediately proceed to emergency room for any new, worsening, or symptoms lasting longer than anticipated. The patient's clinical presentation is otherwise unremarkable at this time. Based on exam and clinical finding, the patient is stable for discharge. Plan of care was discussed with patient. Patient verbalizes understanding and agrees to plan of care. This note was generated using [employer] software. It may contain errors in wording, punctuation, or spelling. Phi Estevez APRN.[facility] documented in this encounter [facility] 09-29-2024 Note HNO ID: [id number] Author: PHI ESTEVEZ APRN.[facility] Service: ? Author Type: Nurse Practitioner Type: Progress Notes Filed: 09/29/2024 08:08 Note Text: Subjective HPI Nontoxic-appearing female presents urgent care chief complaint rash. Duration of symptoms 6 days. Associated symptoms erythematous itchy rash. States is painful at times. Most prominent symptom today is pruritus. OTC medication little no success. Overall feels well. No recent antibiotic changes. Past medical history prescription medications allergies reviewed. .Patient presents with: Rash: R upper thigh, spreading, redness, itchy, warm, drainage x 6 days PAST MEDICAL HISTORY Diagnosis Date Anxiety PAST SURGICAL HISTORY Procedure Laterality Date SNGL NONE TUBAL LIGATION ALLERGIES Patient has no known allergies. MEDICATIONS amphetamine-dextroamphetamine XR (ADDERALL XR) 15 mg capsule Take 1 capsule by mouth every morning for 30 days. hydrOXYzine HCl (ATARAX) 25 mg tablet Take 1 tablet by mouth daily at bedtime. levonorgestrel (MIRENA) 20 mcg/24 hours (5-6 yrs) 52 mg IUD 1 Each by INTRAUTERINE route as directed. FAMILY HISTORY Problem Relation Age of Onset None Mother other (unknown) Father Social History Tobacco Use Smoking status: Former Current packs/day: 0.00 Types: Cigarettes Quit date: 01/13/2013 Years since quittin.7 Smokeless tobacco: Never Tobacco comments: only social smoker Vaping Use Vaping status: Never Used Substance Use Topics Alcohol use: No Drug use: No BP 138/92 Pulse 92 Temp 36.8 ?C (98.2 ?F) Resp 20 Wt 73 kg (160 lb 15 oz) LMP 09/15/2024 (Exact Date) SpO2 100% BMI 26.37 kg/m? Review of Systems Constitutional: Negative for chills, fever and malaise/fatigue. HENT: Negative for congestion, ear discharge, ear pain, sinus pain and sore throat. Eyes: Negative for blurred vision, pain, discharge and redness. Respiratory: Negative for cough, hemoptysis, sputum production, shortness of breath, wheezing and stridor. Cardiovascular: Negative for chest pain. Gastrointestinal: Negative for abdominal pain, diarrhea, nausea and vomiting. Musculoskeletal: Negative for myalgias. Skin: Positive for itching and rash. Neurological: Negative for dizziness and headaches. Objective Physical Exam Constitutional: General: She is not in acute distress. Appearance: She is not toxic-appearing. HENT: Head: Normocephalic. Nose: Nose normal. Mouth/Throat: Mouth: Mucous membranes are moist. Pharynx: Oropharynx is clear. Eyes: Pupils: Pupils are equal, round, and reactive to light. Cardiovascular: Rate and Rhythm: Normal rate. Pulmonary: Effort: Pulmonary effort is normal. No respiratory distress. Musculoskeletal: Cervical back: Normal range of motion. Skin: General: Skin is warm and dry. Comments: Macular papular lesions with fluid-filled vesicles linear pattern noted. No remote redness. No evidence of infection. Neurological: General: No focal deficit present. Mental Status: She is alert. ASSESSMENT/PLAN: 1. Rash - ICD9: 782.1, ICD10: R21 Diagnosed with rash. Most consistent with contact dermatitis. Use steroid cream as instructed. Pain worsens or new symptoms develop return for reevaluation. Patient was educated on supportive therapies. Patient will follow up with primary care provider as needed. Patient was instructed to immediately proceed to emergency room for any new, worsening, or symptoms lasting longer than anticipated. The patient's clinical presentation is otherwise unremarkable at this time. Based on exam and clinical finding, the patient is stable for discharge. Plan of care was discussed with patient. Patient verbalizes understanding and agrees to plan of care. This note was generated using [employer] software. It may contain errors in wording, punctuation, or spelling. Phi Estevez APRN.[facility] 09-29-2024 History of Presen t illness Narrative Images from the original note were not included. Subjective HPI Nontoxic-appearing female presents urgent care chief complaint rash. Duration of symptoms 6 days. Associated symptoms erythematous itchy rash. States is painful at times. Most prominent symptom today is pruritus. OTC medication little no success. Overall feels well. No recent antibiotic changes. Past medical history prescription medications allergies reviewed. .Patient presents with: Rash: R upper thigh, spreading, redness, itchy, warm, drainage x 6 days PAST MEDICAL HISTORY Diagnosis Date Anxiety PAST SURGICAL HISTORY Procedure Laterality Date SNGL NONE TUBAL LIGATION ALLERGIES Patient has no known allergies. MEDICATIONS amphetamine-dextroamphetamine XR (ADDERALL XR) 15 mg capsule Take 1 capsule by mouth every morning for 30 days. hydrOXYzine HCl (ATARAX) 25 mg tablet Take 1 tablet by mouth daily at bedtime. levonorgestrel (MIRENA) 20 mcg/24 hours (5-6 yrs) 52 mg IUD 1 Each by INTRAUTERINE route as directed. FAMILY HISTORY Problem Relation Age of Onset None Mother other (unknown) Father Social History Tobacco Use Smoking status: Former Current packs/day: 0.00 Types: Cigarettes Quit date: 01/13/2013 Years since quittin.7 Smokeless tobacco: Never Tobacco comments: only social smoker Vaping Use Vaping status: Never Used Substance Use Topics Alcohol use: No Drug use: No BP 138/92 Pulse 92 Temp 36.8 C (98.2 F) Resp 20 Wt 73 kg (160 lb 15 oz) LMP 09/15/2024 (Exact Date) SpO2 100% BMI 26.37 kg/m Review of Systems Constitutional: Negative for chills, fever and malaise/fatigue. HENT: Negative for congestion, ear discharge, ear pain, sinus pain and sore throat. Eyes: Negative for blurred vision, pain, discharge and redness. Respiratory: Negative for cough, hemoptysis, sputum production, shortness of breath, wheezing and stridor. Cardiovascular: Negative for chest pain. Gastrointestinal: Negative for abdominal pain, diarrhea, nausea and vomiting. Musculoskeletal: Negative for myalgias. Skin: Positive for itching and rash. Neurological: Negative for dizziness and headaches. Objective Physical Exam Constitutional: General: She is not in acute distress. Appearance: She is not toxic-appearing. HENT: Head: Normocephalic. Nose: Nose normal. Mouth/Throat: Mouth: Mucous membranes are moist. Pharynx: Oropharynx is clear. Eyes: Pupils: Pupils are equal, round, and reactive to light. Cardiovascular: Rate and Rhythm: Normal rate. Pulmonary: Effort: Pulmonary effort is normal. No respiratory distress. Musculoskeletal: Cervical back: Normal range of motion. Skin: General: Skin is warm and dry. Comments: Macular papular lesions with fluid-filled vesicles linear pattern noted. No remote redness. No evidence of infection. Neurological: General: No focal deficit present. Mental Status: She is alert. ASSESSMENT/PLAN: 1. Rash - ICD9: 782.1, ICD10: R21 Diagnosed with rash. Most consistent with contact dermatitis. Use steroid cream as instructed. Pain worsens or new symptoms develop return for reevaluation. Patient was educated on supportive therapies. Patient will follow up with primary care provider as needed. Patient was instructed to immediately proceed to emergency room for any new, worsening, or symptoms lasting longer than anticipated. The patient's clinical presentation is otherwise unremarkable at this time. Based on exam and clinical finding, the patient is stable for discharge. Plan of care was discussed with patient. Patient verbalizes understanding and agrees to plan of care. This note was generated using [employer] software. It may contain errors in wording, punctuation, or spelling. Phi Estevez APRN.[facility] documented in this encounter [facility] [place] 09-18-2024 Instructions Renetta Hancock APRN.CNP - 09/18/2024 5:32 PM EDT Ina Noble, It was good to talk with you today. Below is a summary of the plan that we discussed during your appointment for reference. Of course, if you have any questions or concerns do not hesitate to reach out to me via a message or call. Best, Renetta Hancock APRN.CNP PLAN AND FOLLOW UP: TREATMENT PLAN: Start Adderall 15 mg XR once every morning to address ADHD symptoms. Send an update via [employer] in 3 weeks to report how this dose is supporting her symptoms. May need to increase to 20 mg if tolerating the medication considering the severity of symptoms. Discontinue Wellbutrin due to lack of benefit. Utilize hydroxyzine 25 mg at bedtime to address anxiety and sleep difficulties. Discontinue using marijuana gummies and work on reducing alcohol use socially. Complete monitoring lab work. Complete EKG and vitals at the next in person appointment. For those experiencing a suicidal crisis: --call the National Suicide Prevention Lifeline at 98 (754-675-1061) --text the Crisis Text Line (text HOME to 471509) --call 901 and let them know you are having a mental health crisis or go to your nearest Emergency Room for stabilization. --You can also call Mobile Crisis at 911-713-2458. Next appointment: --Schedule in 2 months or sooner if needed -- You may call the department appointment line at [phone] to schedule your appointment. -- Please call my nurse at [phone] or send me a message in [employer] with any questions or concerns between appointments. documented in this encounter [facility] 09-18-2024 Note HNO ID: [id number] Author: RENETTA HANCOCK APRN.CNP Service: ? Author Type: Nurse Practitioner Type: Progress Notes Filed: 09/20/2024 23:03 Note Text: PSYC NEW - PSYCHIATRIC ASSESSMENT PATIENT: Rajesh Escoto DATE: September 18, 2024 Patient was seen for an initial evaluation. I have communicated my name and active licensure. The patient's identity and physical location were verified at the time of this visit. Either the patient or their legal counter sales representative has been informed of the risks and benefits of -- and alternatives to -- treatment through a remote evaluation and consents to proceed with the evaluation remotely All information is from Patient report except when noted. This evaluation is NOT intended for forensic, disability or child custody purposes. AGE: [age] year old RACE: White REFERRAL SOURCE: Kelly Read MD CHIEF COMPLAINT: Just the way that I feel, I just feel like I am not normal or typical. I just have a lot of things going through my head. I had a real hard time with focusing and being able to control my emotions. My brain is on constant and it just doesn't stop. 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 I struggled with this my whole life and it is getting harder. My patience level is going out of window. I am getting irritable. I have a lot of thoughts of quitting my job and I don't want to. My doctors have tried different anti-depressants and it is not doing anything besides making me numb and not happy. HPI: Rajesh Escoto is a 44 year old Female with a history of Depression and Anxiety. In the past year, she has started struggling more with mood and anxiety symptoms. 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 Has to pay attention and focus for the first time in a long time. Has struggled with comprehension since she was in elementary school. I forget what I am talking about. 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 Her 14 year old son has been diagnosed with ADHD when he was in kindergarten or around 1st grade. He was only on medication for a short time and then didn't need it. None of her other children have been diagnosed yet. Shares that her 17 year old daughter was struggling with comprehension, frustration tolerance and anger and irritability. She stayed home for 16 to 17 years. 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 She likes her job but I am struggling and its embarrassing. I cannot wrap my brain around math. 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 In the work setting, she gets triggered with the sounds around her overstimulating her. Growing up she was in the special reading and math groups. I was never a failing student and just got average grades and fudged my way through it. Was not diagnosed with any learning disabilities but I don't think I went to the doctor for any testing. Enjoyed just recess when she was in school. Does not have hobbies. Something will spark her interest for a short time but it does not hold her interest. In the home setting, she struggles with following recipes correctly while cooking. 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 Has to check her work again and again to ensure that she did not make any mistakes. Forgets to complete tasks and tends to jump from one thing to another. My 's chewing throws me off the edge and I can't think of anything else. Shares that her untreated symptoms are causing problems between her and her . Why can't I just understand things. I have been faking it till I can make it and its getting really hard to do now. She believes that she is in the sammie-menopause stage right now. Does notice that her symptoms worsen before her period. Psychiatric ROS: REVIEW OF SYMPTOMS PSYCH: Sleep: I have not been a good sleeper for as long as I can remember. Wakes up around 3 am and 4 am and stays up as her mind starts racing. Sometimes she will fall asleep right away as she is so tired and other times her brain won't shut off. Patient reports non-restorative sleep and snoring. Eating: Appetite is intermittent. Usually doesn't end up eating the dinner she makes. Things don't taste good to me. Had COVID 3 years ago and it has impacted her sense of smell and taste. Patient reports avoids specific textures. There is no concern for decreased appetite, recent weight loss, laxative use, recent weight gain or constipation. Depression: Patient reports irritability and guilt. Safety: I would never harm myself. Last week she thought, It would be okay if I didn' (more content not included)... [facility] 09-18-2024 History of Presen t illness Narrative Images from the original note were not included. PSYC NEW - PSYCHIATRIC ASSESSMENT PATIENT: Rajesh Escoto DATE: September 18, 2024 Patient was seen for an initial evaluation. I have communicated my name and active licensure. The patient's identity and physical location were verified at the time of this visit. Either the patient or their legal counter sales representative has been informed of the risks and benefits of -- and alternatives to -- treatment through a remote evaluation and consents to proceed with the evaluation remotely All information is from Patient report except when noted. This evaluation is NOT intended for forensic, disability or child custody purposes. AGE: [age] year old RACE: White REFERRAL SOURCE: Kelly Read MD CHIEF COMPLAINT: Just the way that I feel, I just feel like I am not normal or typical. I just have a lot of things going through my head. I had a real hard time with focusing and being able to control my emotions. My brain is on constant and it just doesn't stop. 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 I struggled with this my whole life and it is getting harder. My patience level is going out of window. I am getting irritable. I have a lot of thoughts of quitting my job and I don't want to. My doctors have tried different anti-depressants and it is not doing anything besides making me numb and not happy. HPI: Rajesh Escoto is a 44 year old Female with a history of Depression and Anxiety. In the past year, she has started struggling more with mood and anxiety symptoms. 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 Has to pay attention and focus for the first time in a long time. Has struggled with comprehension since she was in elementary school. I forget what I am talking about. 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 Her 14 year old son has been diagnosed with ADHD when he was in kindergarten or around 1st grade. He was only on medication for a short time and then didn't need it. None of her other children have been diagnosed yet. Shares that her 17 year old daughter was struggling with comprehension, frustration tolerance and anger and irritability. She stayed home for 16 to 17 years. 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 She likes her job but I am struggling and its embarrassing. I cannot wrap my brain around math. 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 In the work setting, she gets triggered with the sounds around her overstimulating her. Growing up she was in the special reading and math groups. I was never a failing student and just got average grades and fudged my way through it. Was not diagnosed with any learning disabilities but I don't think I went to the doctor for any testing. Enjoyed just recess when she was in school. Does not have hobbies. Something will spark her interest for a short time but it does not hold her interest. In the home setting, she struggles with following recipes correctly while cooking. 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 Has to check her work again and again to ensure that she did not make any mistakes. Forgets to complete tasks and tends to jump from one thing to another. My 's chewing throws me off the edge and I can't think of anything else. Shares that her untreated symptoms are causing problems between her and her . Why can't I just understand things. I have been faking it till I can make it and its getting really hard to do now. She believes that she is in the sammie-menopause stage right now. Does notice that her symptoms worsen before her period. Psychiatric ROS: REVIEW OF SYMPTOMS PSYCH: Sleep: I have not been a good sleeper for as long as I can remember. Wakes up around 3 am and 4 am and stays up as her mind starts racing. Sometimes she will fall asleep right away as she is so tired and other times her brain won't shut off. Patient reports non-restorative sleep and snoring. Eating: Appetite is intermittent. Usually doesn't end up eating the dinner she makes. Things don't taste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 other (unknown) Father Patient Allergies ALLERGIES No Known Allergies Current Medications Current Outpatient Medications on File Prior to Visit Medication Sig venlafaxine ER (EFFEXOR XR) 75 mg 24 hr capsule Take 1 capsule by mouth once daily. hydrOXYzine pamoate (VISTARIL) 25 mg capsule Take 1 capsule by mouth three times daily as needed for anxiety. levonorgestrel (MIRENA) 20 mcg/24 hours (5-6 yrs) 52 mg IUD 1 Each by INTRAUTERINE route as directed. No current facility-administered medications on file prior to visit. Social History Social History Tobacco Use Smoking status: Former Types: Cigarettes Quit date: 01/13/2013 Years since quittin.6 Smokeless tobacco: Never Tobacco comments: only social smoker Vaping Use Vaping Use: Never used Substance Use Topics Alcohol use: No Drug use: No EXAM: LMP 04/10/2021 General Appearance: Well appearing, alert, in no acute distress, well-hydrated, well nourished.. Health Maintenance List HEPATITIS B(1 of 3 - 3-dose series) Never done COVID-19 VACCINE(1) Never done HEPATITIS C SCREENING Never done HIV SCREENING Never done DTAP,TDAP,TD(1 - Tdap) Never done MAMMOGRAM Never done INFLUENZA(1) due on 07/23/2022 PAP TESTING due on 09/17/2025 HPV TESTING due on 09/17/2025 Data reviewed none ASSESSMENT/PLAN: 1. Anxiety and depression - ICD9: 300.00, 311, ICD10: F41.9, F32.A Continue Effexor XR 75 gm daily; call if she would like to increase dose, otherwise follow up n 3 months Kelly Read MD documented in this encounter [facility] 06-26-2022 Miscellaneous Notes Pt scheduled 09/08/22 at 11:40 AM for VV. Notified via [employer] Kayleigh Mattson Ma;' documented in this encounter [facility] 06-26-2022 History of Presen t illness Narrative Chief Complaint No chief complaint on file. HPI: This Team Access Model visit is a virtual/phone encounter. It required patient-provider interaction for the medical decision making as documented below. Patient was offered a virtual/telemedicine appointment in lieu of an office visit due to recommendations to reduce patient exposure to COVID-19. Patient is aware of limitations of performing the visit without a face to face visit in the office setting and agrees. 1 month follow up depression and ALVARADO. ALVARADO & Depression: Pt started on Effexor xr 37.5 mg daily along with the Vistaril 25 mg to use prn. Pt was feeling very overwhelmed, had trouble concentrating, focusing, crying easily, dread of getting up in the mornings. No suicidal thoughts. She has noted improvement with the effexor. Feels more at peace some days. Has used hydroxyzine a couple of times; makes her very sleepy. Has been contacted by [facility], Adult Psychiatry; was given a list of resources but cost was prohibitive as she does not have insurance. She may contact the [facility].. Concerned about bipolar. Past medical history, appointments, medications, allergies reviewed. Previous Medical History PAST MEDICAL HISTORY Diagnosis Date Anxiety Previous Surgical History PAST SURGICAL HISTORY Procedure Laterality Date SNGL NONE TUBAL LIGATION Family History FAMILY HISTORY Problem Relation Age of Onset None Mother other (unknown) Father Patient Allergies ALLERGIES No Known Allergies Current Medications Current Outpatient Medications on File Prior to Visit Medication Sig venlafaxine ER (EFFEXOR XR) 37.5 mg 24 hr capsule Take 1 capsule by mouth once daily. hydrOXYzine pamoate (VISTARIL) 25 mg capsule Take 1 capsule by mouth three times daily as needed for anxiety. levonorgestrel (MIRENA) 20 mcg/24 hours (5-6 yrs) 52 mg IUD 1 Each by INTRAUTERINE route as directed. No current facility-administered medications on file prior to visit. Social History Social History Tobacco Use Smoking status: Former Smoker Quit date: 01/13/2013 Years since quittin.4 Smokeless tobacco: Never Used Tobacco comment: only social smoker Vaping Use Vaping Use: Never used Substance Use Topics Alcohol use: No Drug use: No EXAM: LMP 04/10/2021 Health Maintenance List COVID-19 VACCINE(1) Never done HEPATITIS C SCREENING Never done HIV SCREENING Never done DTAP,TDAP,TD(1 - Tdap) Never done MAMMOGRAM Never done INFLUENZA(1) due on 07/23/2022 PAP TESTING due on 09/17/2025 HPV TESTING due on 09/17/2025 Data reviewed None ASSESSMENT/PLAN: 1. Anxiety and depression - ICD9: 300.00, 311, ICD10: F41.9, F32.A Increase Effexor XR to 75 mg daily Contact [facility] - VENLAFAXINE ER 75 MG CAPSULE,EXTENDED RELEASE 24 HR Follow up in 2 months Kelly Read MD documented in this encounter [facility] 06-11-2022 Miscellaneous Notes Behavioral Health Social Work Progress Note Patient identified for [facility] from: PCP Reason for referral: [facility] Assessment [facility] encounter type: Telephone Encounter Attempts to Outreach: 1 attempt Final Disposition: Unable to reach Patient Discharged?: No Patient reported that caregiver was able to meet their needs today?: N/A Left msg for pt, need to r/s the appt she has on Wednesday with T Mainor as he will not be in. JOSH Penn June 11, 2022 documented in this encounter [facility] 06-04-2022 Miscellaneous Notes BEHAVIORAL HEALTH SOCIAL WORK CONSULT NOTE Service Date: June 04, 2022 Patient was identified by name and Patient: Rajesh Escoto [address] [facility] [id number] (home) [phone] (cell) PCP: Kelly Read MD [address] [facility] [address] Patient identified for [facility] from: PCP (Dr Read) Reason for referral: Resources Behavioral Health Resources: Psychiatry med management (Anxiety and depression) [facility] encounter type: Telephone Encounter Assessment: [facility] received a consult from Dr Read, for psychiatry, to address/tx Anxiety and depression [facility] reviewed Pt's chart/insurance [facility] contacted Pt -sched assessment for 06-15-22 at 9am virtual - sent [facility] with appt info, consent for tx,PHQ9 and GAD7 Medications: Current Outpatient Medications on File Prior to Visit Medication Sig venlafaxine ER (EFFEXOR XR) 37.5 mg 24 hr capsule Take 1 capsule by mouth once daily. hydrOXYzine pamoate (VISTARIL) 25 mg capsule Take 1 capsule by mouth three times daily as needed for anxiety. levonorgestrel (MIRENA) 20 mcg/24 hours (5-6 yrs) 52 mg IUD 1 Each by INTRAUTERINE route as directed. No current facility-administered medications on file prior to visit. Curbside: No Screening Tools: No Substance Use / Abuse: No Outcome / Plan / Referrals: Attempts to Outreach: 1 attempt Referral made: Psychology - Internal Psychology-Internal referral type: (sched assessment for 06-15-22 at 9am virtual) Final Disposition: Care established with (sched assessment for 06-15-22 at 9am virtual) Patient Discharged?: Yes Patient reported that caregiver was able to meet their needs today?: Yes Internal Referrals : Yes -Patient advised of treatment options available at [facility]. Patient was informed that they will be moving on for further evaluation if seeking treatment within the [facility] system. Reason for External Referrals : N/A Intervention: Supportive Listening Scheduled Assessment Offered virtual visit Resources Provided: Further evaluation and assessment Virtual Visit Time Spent: 15 minutes JOSH Patel documented in this encounter [facility] 06-03-2022 Miscellaneous Notes Pt sent Weele message notifying her of normal results below. If questions to contact the office. Nehal Benitez Ma Can you please call the patient and let her know that I reviewed her lab results. Labs were within normal limits. No further testing needed at this time. Please let me know if she has any questions. Thank you. Kimberli Michael APRN.VINI documented in this encounter [facility] 06-02-2022 History of Presen t illness Narrative Chief Complaint Patient presents with: Follow Up: anxiety and depression HPI Rajesh Escoto is a 41 year old female who presents here today for medication follow up. Last OV was January 2021. Anxiety & Depression: Pt states she weaned off the Hydroxyzine 25 mg 1 pill every 6 hours prn, Wellbutrin 150 mg daily and Prozac 40 mg daily, has not used for a few months. She felt these medications worked well at the beginning but she would have to just keep increasing dosage. She has used Paxil, Zoloft, Lexapro in the past as well. Does not do any counseling, has done it in the past but didn't feel it was helpful. States she is an nervous wreck, she states she has a child who has been driving for a year now, another one going to be driving in the next 6 months, her grandma last Nov. She can't sleep at night unless she takes a Benadryl, can't shut her mind off. She can't focus or concentrate on anything or conversations she is having with people. She states she just had so much going on in her head. 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 She states this is affecting her relationship at home, she gets very irritable. She states she is not suicidal but does wake up every day thinking this again. No SI/HI. She feels she is constantly fighting this better where she feels she is better and then she plateaus. She is not sure what to do at this point to treat or get this under control. Had COVID in Oct 2021. She still does not have sense of smell and taste back yet. She states when she can smell it all smells bad, like dog poop. Past medical history, appointments, medications, allergies reviewed. Previous Medical History PAST MEDICAL HISTORY Diagnosis Date Anxiety Previous Surgical History PAST SURGICAL HISTORY Procedure Laterality Date SNGL NONE TUBAL LIGATION Family History FAMILY HISTORY Problem Relation Age of Onset None Mother other (unknown) Father Patient Allergies ALLERGIES No Known Allergies Current Medications Current Outpatient Medications on File Prior to Visit Medication Sig hydrOXYzine HCl (ATARAX) 25 mg tablet Take 1 tablet by mouth every 6 hours as needed for anxiety. FLUoxetine HCl (PROZAC) 40 mg capsule Take 1 capsule by mouth once daily. levonorgestrel (MIRENA) 20 mcg/24 hours (5-6 yrs) 52 mg IUD 1 Each by INTRAUTERINE route as directed. buPROPion XL (WELLBUTRIN XL) 150 mg 24 hr tablet Take 1 tablet by mouth once daily. (Patient not taking: Reported on 02/10/2022 ) No current facility-administered medications on file prior to visit. Social History Social History Tobacco Use Smoking status: Former Smoker Quit date: 01/13/2013 Years since quittin.3 Smokeless tobacco: Never Used Tobacco comment: only social smoker Vaping Use Vaping Use: Never used Substance Use Topics Alcohol use: No Drug use: No EXAM: BP 138/88 Pulse 80 Resp 18 Wt 76.1 kg (167 lb 12.8 oz) LMP 04/10/2021 BMI 27.50 kg/m General Appearance: Well appearing, alert, in no acute distress, well-hydrated, well nourished.. Neck: Supple, no adenopathy; thyroid symmetric, normal size. Lungs: Lungs clear to auscultation. No wheezing, rhonchi, rales.. Heart: RRR without murmur, gallop, or rubs. No ectopy. Health Maintenance List COVID-19 VACCINE(1) Never done HEPATITIS C SCREENING Never done HIV SCREENING Never done DTAP,TDAP,TD(1 - Tdap) Never done MAMMOGRAM Never done INFLUENZA(1) due on 07/23/2022 PAP TESTING due on 09/17/2025 HPV TESTING due on 09/17/2025 Data reviewed None ASSESSMENT/PLAN: 1. Anxiety and depression - ICD9: 300.00, 311, ICD10: F41.9, F32.A Get blood work done Consult Behavioral Health to see about getting in to Psychiatry for medication management Start Effexor xr 37.5 mg daily Hydroxyzine 25 mg PRN Follow up in 1 months. I agree with the Chief Complaint, ROS, and Past Histories independently gathered by the clinical administrative support technician and the remaining scribed note accurately describes my personal service to the patient. Medical Decision Making: Problems: Low: Stable chronic illness Data: Unique test(s) ordered: 3+ Risk: Moderate: Drug management Medical Decision Making Level: 4 - Moderate Kelly Read MD The documentation for this note was completed by Kayleigh Mattson Ma acting as scribe for Kelly Read MD. June 02, 2022 9:47 AM. Kayleigh Mattson Ma documented in this encounter [facility] 02-19-2022 History of Presen t illness Narrative This is an Express Care eVisit note for Rajesh L Tigist eVisit/Questionnaire reviewed The chief complaint for the visit - Patient presents with: Sinus Problem Recommendations/Treatment plan - Most consistent with viral URI. See My Chart Message to patient. Recommendation for follow up - PRN Time spend was 5 minutes. Melony Mendez APRN.VINI documented in this encounter [facility] 02-10-2022 History of Presen t illness Narrative Rajesh Escoto is a 41 year old female who presents for concerns regarding lower pelvic pressure- pt states present x 6 months. 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 Pt reports no painful intercourse. Denies dysuria or changes with bowel habits. Denies Nausea or vomiting. Reports does have constant bloating. Pt states she blacked out over the weekend- hit her head on ground- did not go to ER for evaluation. Pt has had a continuous headache since that time. No visual changes OB History T0 L4 SAB0 IAB0 Ectopic0 Multiple0 Live Births0 Comment: 3 vaginal deliveries 1 c/s [employer] History LMP: 04/10/2021, IUD Age at Menarche: Age at First : Age at Menopause: Le[employer] Agent History Comments: Sexual Activity: Yes; Male Contraception: Tubal Ligation PAST MEDICAL HISTORY Diagnosis Date Anxiety PAST SURGICAL HISTORY Procedure Laterality Date SNGL NONE TUBAL LIGATION FAMILY HISTORY Problem Relation Age of Onset None Mother other (unknown) Father Social History Tobacco Use Smoking status: Former Smoker Quit date: 01/13/2013 Years since quittin.0 Smokeless tobacco: Never Used Tobacco comment: only social smoker Vaping Use Vaping Use: Never used Substance Use Topics Alcohol use: No Drug use: No Current Outpatient Medications Medication Sig hydrOXYzine HCl (ATARAX) 25 mg tablet Take 1 tablet by mouth every 6 hours as needed for anxiety. FLUoxetine HCl (PROZAC) 40 mg capsule Take 1 capsule by mouth once daily. levonorgestrel (MIRENA) 20 mcg/24 hours (5-6 yrs) 52 mg IUD 1 Each by INTRAUTERINE route as directed. buPROPion XL (WELLBUTRIN XL) 150 mg 24 hr tablet Take 1 tablet by mouth once daily. No current facility-administered medications for this visit. Allergies As of Date: 02/10/2022 (No Known Allergies) Fully Assessed 03/25/2021 REVIEW OF SYSTEMS Abdomen: see HPI Bladder: no dysuria .. Expanded ROS: GENERAL: Negative for fever Allergies and current medication updated:Yes EXAM: BP 124/84 Wt 173 lb (78.5kg) LMP 04/10/2021 GENERAL: pleasant, female in no apparent distress HEENT: Normocephalic, atraumatic, mucus membranes moist and no lesions NECK: full range of motion DERMATOLOGY: Normal, without lesions, non-icteric and non-hirsute ABDOMEN: soft, non-tender and no masses PELVIC: external genitalia normal, normal Bartholin's glands, urethra, Eskridge's glands, no vulvar lesions, no cervical lesions, good vaginal support, physiologic discharge present, normal appearing perineal body and perianal region. IUD strings not visualized. BIMANUAL: uterus normal size, shape and consistency, no adnexal masses, non-tender and fullness appreciated central NEURO: alert and oriented x3,exam grossly non-focal EXTREMITIES: normal ASSESSMENT AND PLAN: Encounter Diagnosis ICD-10-CM 1. Pelvic pressure in female R10.2 PELVIC US WHI 2. IUD (intrauterine device) in place Z97.5 PELVIC US WHI 3. Bloating R14.0 4. Traumatic injury of head, initial encounter S09.90XA 5. Limited bedside ultrasound was performed for images but it did appear that the IUD was correctly positioned at the uterine fundus. I was not able to visualize the ovaries. Recommendation is for an official pelvic ultrasound. 6. Reviewed diet- possible bowel related- recommend elimination of dairy/gluten - consider WHOLE 30 diet. 7. Reviewed head trauma- recommend ER for further evaluation- possible imaging of head. ER at [place] notified- pt agreed to be seen. I spent a total of 30 minutes on the date of the service which included preparing to see the patient, [id number] patient care, completing clinical documentation, obtaining and/or reviewing separately obtained history, performing a medically appropriate examination, counseling and educating the patient/family/caregiver and ordering medications, tests, or procedures. Farzana Traylor MD documented in this encounter [facility] Evaluation note No assessment inform ation available [facility] Work Phone: Evaluation note Diagnosis Pelvic pressure in female- Primary Other specified symptom associated with female genital organs IUD (intrauterine device) in place Presence of intrauterine contraceptive device Bloating Flatulence, eructation, and gas pain Traumatic injury of head, initial encounter [facility] Diagnosis Viral upper respiratory infection- Primary Acute upper respiratory infections of unspecified site [facility] Diagnosis Encounter for screening mammogram for breast cancer [facility] Diagnosis Anxiety and depression- Primary Dysthymic disorder [facility] Diagnosis Anxiety and depression Dysthymic disorder [facility] Diagnosis Anxiety and depression- Primary Dysthymic disorder [facility] Diagnosis Viral URI with cough- Primary Acute upper respiratory infections of unspecified site Acute otitis media, left Unspecified otitis media [facility] Diagnosis Acute otitis media, right- Primary Unspecified otitis media Decreased hearing of right ear Anxiety and depression Dysthymic disorder Poor concentration Attention or concentration deficit [facility] Diagnosis Encounter for screening mammogram for breast cancer [facility] Diagnosis Hot flashes- Primary Symptomatic menopausal or female climacteric states Poor sleep Poor concentration Attention or concentration deficit Anxiety and depression Dysthymic disorder [facility] Diagnosis Dysuria- Primary Urinary frequency [facility] Diagnosis Attention deficit hyperactivity disorder (ADHD), combined type- Primary Encounter for long-term (current) use of medications Encounter for long-term (current) use of other medications ALVARADO (generalized anxiety disorder) Generalized anxiety disorder Social anxiety disorder Social phobia [facility] Diagnosis Rash- Primary Rash and other nonspecific skin eruption [facility] Diagnosis Rash- Primary Rash and other nonspecific skin eruption [facility] Diagnosis Encounter for gynecological examination (general) (routine) without abnormal findings- Primary Encounter for screening mammogram for breast cancer [facility] Diagnosis ALVARADO (generalized anxiety disorder)- Primary Generalized anxiety disorder Attention deficit hyperactivity disorder (ADHD), combined type Social anxiety disorder Social phobia Medication side effect, initial encounter Nightmares Other dysfunctions of sleep stages or arousal from sleep documented in this encounter [facility] note* Diagnosis Encounter for screening mammogram for breast cancer documented in this encounter [facility] note* Diagnosis Attention deficit hyperactivity disorder (ADHD), combined type documented in this encounter [facility] note* Diagnosis Attention deficit hyperactivity disorder (ADHD), combined type [facility] Diagnosis Attention deficit hyperactivity disorder (ADHD), combined type- Primary ALVARADO (generalized anxiety disorder) Generalized anxiety disorder Encounter for long-term (current) use of medications Encounter for long-term (current) use of other medications Medication side effect, initial encounter documented in this encounter [facility] note* Diagnosis Attention deficit hyperactivity disorder (ADHD), combined type- Primary documented in this encounter [facility] note* Diagnosis Attention deficit hyperactivity disorder (ADHD), combined type- Primary Psychosocial stressors Other psychological or physical stress, not elsewhere classified ALVARADO (generalized anxiety disorder) Generalized anxiety disorder Encounter for long-term (current) use of medications Encounter for long-term (current) use of other medications Social anxiety disorder Social phobia [facility]* Diagnosis Rash and nonspecific skin eruption- Primary Rash and other nonspecific skin eruption documented in this encounter [facility] note* Diagnosis Elevated BP without diagnosis of hypertension- Primary Family history of diabetes mellitus Screening for diabetes mellitus Screening for lipid disorders Family history of high cholesterol Family history of other endocrine and metabolic diseases Encounter for vitamin deficiency screening Screening for other and unspecified endocrine, nutritional, metabolic, and immunity disorders documented in this encounter [facility] note* Diagnosis Elevated hemoglobin- Primary Other hemoglobinopathies Elevated hematocrit Other hemoglobinopathies documented in this encounter [facility] for referral (narrative)* Diagnostic Procedure Only (Routine) - Pending Review Specialty Diagnoses / Procedures Referred By Leo moore Referred To Contact [facility] Diagnoses Pelvic pressure in female IUD (intrauterine device) in place Procedures PELVIC US WHI US PELVIC NONOBSTETRIC REAL-TIME IMAGE COMPLETE Farzana Mak MD [address] [place] [address] [facility] [address] [place] [address] Referral ID Status Reason Start Date Expiration Date Visits Requested Visits Authorized [id number] Pending Review Auto-Generat ed Referral 02/10/2022 02/10/2023 1 1 [facility] for referral (narrative)* Diagnostic Procedure Only (Routine) - Pending Review Specialty Diagnoses / Procedures Referred By Leo t Referred To Contact [facility] Diagnoses Encounter for screening mammogram for breast cancer Procedures SKYLA SCREENING SCREENING MAMMOGRAPHY BI 2-VIEW BREAST INC Kelly Boles MD [address] [place] [address] [facility] [address] [place] [address] Referral ID Status Reason Start Date Expiration Date Visits Requested Visits Authorized [id number] Pending Review Auto-Generat ed Referral 05/20/2022 06/19/2023 1 1 [facility] for referral (narrative)* Diagnostic Procedure Only (Routine) - Pending Review Specialty Diagnoses / Procedures Referred By Leo moore Referred To Contact [facility] Diagnoses Encounter for screening mammogram for breast cancer Procedures SKYLA SCREENING SCREENING MAMMOGRAPHY BI 2-VIEW BREAST INC Kelly Boles MD [address] [place] [address] [facility] [address] [place] [address] Referral ID Status Reason Start Date Expiration Date Visits Requested Visits Authorized [id number] Pending Review Auto-Generat ed Referral 04/12/2024 05/12/2025 1 1 T [facility] for referral (narrative)* Outpatient Procedure (Routine) - New Request Specialty Diagnoses / Procedures Referred By Leo t Referred To [facility] Diagnoses Encounter for long-term (current) use of medications Procedures ECG COMPLETE ECG ROUTINE ECG W/LEAST 12 LDS W/I&R Renetta Hancock APRN.CNP [address] [place] [address] [facility] [address] [place] [address] Referral ID Status Reason Start Date Expiration Date Visits Requested Visits Authorized [id number] New Request Auto-Generat ed Referral 4 09/18/2025 1 1 [facility] for referral (narrative)* Diagnostic Procedure Only (Routine) - New Request Specialty Diagnoses / Procedures Referred By Leo moore Referred To Contact [facility] Diagnoses Encounter for screening mammogram for breast cancer Procedures SKYLA SCREENING W JACOB SCREENING DIGITAL BREAST TOMOSYNTHESIS BI SCREENING MAMMOGRAPHY BI 2-VIEW BREAST INC CAD Farzana Mak MD [address] [place] [address] [facility] [address] [place] [address] Referral ID Status Reason Start Date Expiration Date Visits Requested Visits Authorized [id number] New Request Auto-Generat ed Referral 4 11/10/2025 1 1 [facility] for referral (narrative)* Diagnostic Procedure Only (Routine) - Closed Specialty Diagnoses / Procedures Referred By Leo moore Referred To Contact [facility] Diagnoses Encounter for screening mammogram for breast cancer Procedures SKYLA SCREENING SCREENING MAMMOGRAPHY BI 2-VIEW BREAST INC CAD Kelly Read MD [address] [place] [address] [facility] [address] [place] [address] Referral ID Status Reason Start Date Expiration Date V isits Requested Visits Authorized [id number] Closed Auto-Generate d Referral 04/12/2024 05/12/2025 1 1 [facility] Diagnostic Procedure Only (Routine) - Closed Specialty Diagnoses / Procedures Referred By Leo moore Referred To Contact [facility] Diagnoses Encounter for screening mammogram for breast cancer Procedures SKYLA SCREENING SCREENING MAMMOGRAPHY BI 2-VIEW BREAST INC CAD Kelly Read MD [address] [place] [address] [facility] [address] [place] [address] Referral ID Status Reason Start Date Expiration Date V isits Requested Visits Authorized [id number] Closed Auto-Generate d Referral 04/12/2024 05/12/2025 1 1 [facility] Chief Complaint and Reason for Visit Chief Complaint FALL WITH HEADACHE Advance Directives No Advanced Directives Records Found Advance Directive Response Recorded Date/ Time Advance Directives No December 11:13am Living Will No February 10, 2022 3:49pm Power of Enterprise Resource Analyst No February 10 3:49pm Summary Purpose Family History No Family History Records FoundNo Family History Records FoundNo Family History Records Found Reason for Referral Specialty Diagnoses / Procedures Referred By Leo moore Referred To Contact Ent - Otolaryngology Diagnoses Acute otitis media, right Procedures CONSULT TO ENT OFFICE/OUTPATIENT NEW HIGH MDM 60-74 MINUTES Kelly Read MD [address] [place] [address] Referral ID Status Reason Start Date Expiration Date Visits Requested Visits Authorized [id number] Pending Review PCP Requested Referral 12/07/2022 12/07/2023 1 1 Additional Source Comments Goals (unrecognized section and content) Goals may be documented in a n alternate section Source Comments (unrecognize d section and content) In the event this informatio n is protected by the Federal Confidentiality of Alcohol and Drug Abuse Patient Records regulations: The Federal rules restrict any use of the information to criminally investigate or prosecute any alcohol or drug abuse patient.[facility] the event this information is protected by the Federal Confidentiality of Alcohol and Drug Abuse Patient Records regulations: The Federal rules restrict any use of the information to criminally investigate or prosecute any alcohol or drug abuse patient.[facility] the event this information is protected by the Federal Confidentiality of Alcohol and Drug Abuse Patient Records regulations: The Federal rules restrict any use of the information to criminally investigate or prosecute any alcohol or drug abuse patient.[facility] the event this information is protected by the Federal Confidentiality of Alcohol and Drug Abuse Patient Records regulations: The Federal rules restrict any use of the information to criminally investigate or prosecute any alcohol or drug abuse patient.[facility] event this information is protected by the Federal Confidentiality of Alcohol and Drug Abuse Patient Records regulations: The Federal rules restrict any use of the information to criminally investigate or prosecute any alcohol or drug abuse patient.[facility] event this information is protected by the Federal Confidentiality of Alcohol and Drug Abuse Patient Records regulations: The Federal rules restrict any use of the information to criminally investigate or prosecute any alcohol or drug abuse patient.[facility] the event this information is protected by the Federal Confidentiality of Alcohol and Drug Abuse Patient Records regulations: The Federal rules restrict any use of the information to criminally investigate or prosecute any alcohol or drug abuse patient.[facility] the event this information is protected by the Federal Confidentiality of Alcohol and Drug Abuse Patient Records regulations: The Federal rules restrict any use of the information to criminally investigate or prosecute any alcohol or drug abuse patient.[facility] the event this information is protected by the Federal Confidentiality of Alcohol and Drug Abuse Patient Records regulations: The Federal rules restrict any use of the information to criminally investigate or prosecute any alcohol or drug abuse patient.[facility] [place]In the event this information is protected by the Federal Confidentiality of Alcohol and Drug Abuse Patient Records regulations: The Federal rules restrict any use of the information to criminally investigate or prosecute any alcohol or drug abuse patient.[facility] [place]In the event this information is protected by the Federal Confidentiality of Alcohol and Drug Abuse Patient Records regulations: The Federal rules restrict any use of the information to criminally investigate or prosecute any alcohol or drug abuse patient.[facility] [place]In the event this information is protected by the Federal Confidentiality of Alcohol and Drug Abuse Patient Records regulations: The Federal rules restrict any use of the information to criminally investigate or prosecute any alcohol or drug abuse patient.[facility] [place]In the event this information is protected by the Federal Confidentiality of Alcohol and Drug Abuse Patient Records regulations: The Federal rules restrict any use of the information to criminally investigate or prosecute any alcohol or drug abuse patient.[facility] [place]In the event this information is protected by the Federal Confidentiality of Alcohol and Drug Abuse Patient Records regulations: The Federal rules restrict any use of the information to criminally investigate or prosecute any alcohol or drug abuse patient.[facility] [place]In the event this information is protected by the Federal Confidentiality of Alcohol and Drug Abuse Patient Records regulations: The Federal rules restrict any use of the information to criminally investigate or prosecute any alcohol or drug abuse patient.[facility] [place]In the event this information is protected by the Federal Confidentiality of Alcohol and Drug Abuse Patient Records regulations: The Federal rules restrict any use of the information to criminally investigate or prosecute any alcohol or drug abuse patient.[facility] OhioIn the event this information is protected by the Federal Confidentiality of Alcohol and Drug Abuse Patient Records regulations: The Federal rules restrict any use of the information to criminally investigate or prosecute any alcohol or drug abuse patient.[facility] [place]In the event this information is protected by the Federal Confidentiality of Alcohol and Drug Abuse Patient Records regulations: The Federal rules restrict any use of the information to criminally investigate or prosecute any alcohol or drug abuse patient.[facility] [place]In the event this information is protected by the Federal Confidentiality of Alcohol and Drug Abuse Patient Records regulations: The Federal rules restrict any use of the information to criminally investigate or prosecute any alcohol or drug abuse patient.[facility] [place]In the event this information is protected by the Federal Confidentiality of Alcohol and Drug Abuse Patient Records regulations: The Federal rules restrict any use of the information to criminally investigate or prosecute any alcohol or drug abuse patient.[facility] [place]In the event this information is protected by the Federal Confidentiality of Alcohol and Drug Abuse Patient Records regulations: The Federal rules restrict any use of the information to criminally investigate or prosecute any alcohol or drug abuse patient.[facility] [place]In the event this information is protected by the Federal Confidentiality of Alcohol and Drug Abuse Patient Records regulations: The Federal rules restrict any use of the information to criminally investigate or prosecute any alcohol or drug abuse patient.[facility] [place]In the event this information is protected by the Federal Confidentiality of Alcohol and Drug Abuse Patient Records regulations: The Federal rules restrict any use of the information to criminally investigate or prosecute any alcohol or drug abuse patient.[facility] [place]In the event this information is protected by the Federal Confidentiality of Alcohol and Drug Abuse Patient Records regulations: The Federal rules restrict any use of the information to criminally investigate or prosecute any alcohol or drug abuse patient.[facility] [place]In the event this information is protected by the Federal Confidentiality of Alcohol and Drug Abuse Patient Records regulations: The Federal rules restrict any use of the information to criminally investigate or prosecute any alcohol or drug abuse patient.[facility] [place]In the event this information is protected by the Federal Confidentiality of Alcohol and Drug Abuse Patient Records regulations: The Federal rules restrict any use of the information to criminally investigate or prosecute any alcohol or drug abuse patient.[facility] [place]In the event this information is protected by the Federal Confidentiality of Alcohol and Drug Abuse Patient Records regulations: The Federal rules restrict any use of the information to criminally investigate or prosecute any alcohol or drug abuse patient.[facility] OhioIn the event this information is protected by the Federal Confidentiality of Alcohol and Drug Abuse Patient Records regulations: The Federal rules restrict any use of the information to criminally investigate or prosecute any alcohol or drug abuse patient.[facility] [place]In the event this information is protected by the Federal Confidentiality of Alcohol and Drug Abuse Patient Records regulations: The Federal rules restrict any use of the information to criminally investigate or prosecute any alcohol or drug abuse patient.[facility] [place]In the event this information is protected by the Federal Confidentiality of Alcohol and Drug Abuse Patient Records regulations: The Federal rules restrict any use of the information to criminally investigate or prosecute any alcohol or drug abuse patient.[facility] [place]In the event this information is protected by the Federal Confidentiality of Alcohol and Drug Abuse Patient Records regulations: The Federal rules restrict any use of the information to criminally investigate or prosecute any alcohol or drug abuse patient.[facility] [place]In the event this information is protected by the Federal Confidentiality of Alcohol and Drug Abuse Patient Records regulations: The Federal rules restrict any use of the information to criminally investigate or prosecute any alcohol or drug abuse patient.[facility] [place]In the event this information is protected by the Federal Confidentiality of Alcohol and Drug Abuse Patient Records regulations: The Federal rules restrict any use of the information to criminally investigate or prosecute any alcohol or drug abuse patient.[facility] [place]In the event this information is protected by the Federal Confidentiality of Alcohol and Drug Abuse Patient Records regulations: The Federal rules restrict any use of the information to criminally investigate or prosecute any alcohol or drug abuse patient.[facility] [place]In the event this information is protected by the Federal Confidentiality of Alcohol and Drug Abuse Patient Records regulations: The Federal rules restrict any use of the information to criminally investigate or prosecute any alcohol or drug abuse patient.[facility] [place]In the event this information is protected by the Federal Confidentiality of Alcohol and Drug Abuse Patient Records regulations: The Federal rules restrict any use of the information to criminally investigate or prosecute any alcohol or drug abuse patient.[facility] [place] Reason for Visit (unrecogniz ed section and content) Reason Comments Pelvic Pain Specialty Diagnoses / Procedures Referred By Contac t Referred To Contact [employer] Diagnoses Discomfort in my uterus. Often feel bloated and pressure. Procedures EST WHI PATIENT Self Farzana Mak MD [address] [place] [address] Referral ID Status Reason Start Date Expiration Date Visits Requested Visits Authorized [id number] Authorized Financial Clearance Required - Self Pay Patient Cleared - Qualified [id number] 02/04/2022 05/05/2022 99 99 Reason Comments Sinus Problem Reason Comments Follow Up anxiety and depressi on Specialty Diagnoses / Procedures Referred By Contac t Referred To Contact [facility] Department Diagnoses Encounter for screening mammogram for breast cancer Procedures SKYLA SCREENING SCREENING MAMMOGRAPHY BI 2-VIEW BREAST INC CAD Kelly Read MD [address] [place] [address] [facility] [place] Dept Referral ID Status Reason Start Date Expiration Date Visits Requested Visits Authorized [id number] Authorized Auto-Generate d Referral Financial Clearance Required - Self Pay Patient Cleared - Qualified [id number] 05/28/2022 08/26/2022 99 99 Reason Comments Results labs Reason Comments Consult Initial [facility] Pt Outr each Reason Comments reschedule Reason Comments Follow Up Reason Comments Cough Cough, St, right ear pain, fever and white film on tongue x 4 days Reason Comments Ear Problem Anxiety Depression Specialty Diagnoses / Procedures Referred By Contac t Referred To Contact [facility] Diagnoses Ear pain Procedures ear pain Self [facility] [address] [place] [address] Referral ID Status Reason Start Date Expiration Date Visits Requested Visits Authorized [id number] Authorized Financial Clearance Required - Self Pay Patient Cleared - Qualified [id number] 12/07/2022 03/07/2023 99 99 Reason Comments Menopause Consult Reason Comments Dysuria Reason Comments New Patient Evaluation Reason Comments Rash R upper thigh, sprea ding, redness, itchy, warm, drainage x 6 days Reason Comments Rash seen on Wednesday given 2 creams, increased itching Reason Onset Date Comments Refill Request 11/14/2024 Reason Onset Date Comments Refill Request 12/12/2024 Reason Comments EKG senior care medication encounter Reason Onset Date Comments Refill Request 02/18/2025 Reason Comments Follow Up ADD/ADHD Reason Comments Rash Reason Comments Hypertension Care Teams (unrecognized sec tion and content) Briar Cutter Relationship Specialty Start Date End Date Kelly Read MD [address] [place] [address] PCP - General Family Practice 02/12/20 Briar Cutter Relationship Specialty Start Date End Date Kelly Read MD [address] [place] [address] PCP - General Family Practice 02/12/20 Briar Cutter Relationship Specialty Start Date End Date Kelly Read MD [address] [place] [address] PCP - General Family Practice 02/12/20 Briar Cutter Relationship Specialty Start Date End Date Kelly Read MD [address] [facility] [place] [place] [address] PCP - General Family Practice 02/12/20 Briar Cutter Relationship Specialty Start Date End Date Kelly Read MD [address] [place] [address] PCP - General Family Practice 02/12/20 Briar Cutter Relationship Specialty Start Date End Date Kelly Read MD [address] [facility] [place] [place] [address] PCP - General Family Practice 02/12/20 Briar Cutter Relationship Specialty Start Date End Date Kelly Read MD [address] [place] [address] PCP - General Family Practice 02/12/20 Briar Cutter Relationship Specialty Start Date End Date Kelly Read MD [address] [place] [address] PCP - General Family Medicine 02/12/20 Briar Cutter Relationship Specialty Start Date End Date Kelly Read MD [address] [place] [address] PCP - General Family Medicine 02/12/20 Briar Cutter Relationship Specialty Start Date End Date Kelly Read MD [address] [place] [address] PCP - General Family Medicine 02/12/20 Briar Cutter Relationship Specialty Start Date End Date Kelly Read MD [address] [place] [address] PCP - General Family Medicine 02/12/20 Briar Cutter Relationship Specialty Start Date End Date Kelly Read MD [address] [place] [address] PCP - General Family Medicine 02/12/20 Briar Cutter Relationship Specialty Start Date End Date Kelly Read MD [address] [place] [address] PCP - General Family Medicine 02/12/20 Briar Cutter Relationship Specialty Start Date End Date Kelly Read MD [address] [place] [address] PCP - General Family Medicine 02/12/20 Briar Cutter Relationship Specialty Start Date End Date Kelly Read MD [address] [place] [address] PCP - General Family Medicine 02/12/20 Briar Cutter Relationship Specialty Start Date End Date Kelly Read MD [address] [facility] [place] [place] [address] PCP - General Family Medicine 02/12/20 Briar Cutter Relationship Specialty Start Date End Date Kelly Read MD [address] [facility] [place] [place] [address] PCP - General Family Medicine 02/12/20 Briar Cutter Relationship Specialty Start Date End Date Kelly Read MD [address] [place] [address] PCP - General Family Medicine 02/12/20 Briar Cutter Relationship Specialty Start Date End Date Kelly Read MD [address] [place] [address] PCP - General Family Medicine 02/12/20 Kimberli Michael, ZANDRA.REGULATORY SERVICES CONSULTANT [address] [place] [address] [employer] [facility] 10/29/24 Pb Day, [employer]NA[employer]EMENT.REGULATORY SERVICES CONSULTANT [address] [facility] [place] [place] [address] [employer] 11/07/24 Briar Cutter Relationship Specialty Start Date End Date Kelly Read MD [address] [facility] [place] [place] [address] PCP - General Family Medicine 02/12/20 Kimberli Michael, [employer] SALES [employer] MANAGEMENT.REGULATORY SERVICES CONSULTANT [address] [place] [address] [employer] [facility] 10/29/24 Pb Day APRN.REGULATORY SERVICES CONSULTANT [address] [place] [address] [employer] 11/07/24 Briar Cutter Relationship Specialty Start Date End Date Kelly Read MD [address] [place] [address] PCP - General Family Medicine 02/12/20 Kimberli Michael APRN.REGULATORY SERVICES CONSULTANT [address] [place] [address] [employer] 10/29/24 Pb Day APRN.REGULATORY SERVICES CONSULTANT [address] [place] [address] [facility]/24 Briar Cutter Relationship Specialty Start Date End Date Kelly Read MD [address] [place] [address] PCP - General Family Medicine 02/12/20 Kimberli Michael APRN.REGULATORY SERVICES CONSULTANT [address] [place] [address] [employer] 10/29/24 Pb Day APRN.REGULATORY SERVICES CONSULTANT [address] [place] [address] [employer] 11/07/24 Briar Cutter Relationship Specialty Start Date End Date Kelly Read MD [address] [place] [address] PCP - General Family Medicine 02/12/20 Pb Day APRN.REGULATORY SERVICES CONSULTANT [address] [place] [address] [employer] 11/07/24 Briar Cutter Relationship Specialty Start Date End Date Kelly Read MD [address] [place] [address] PCP - General Family Medicine 02/12/20 Pb Day APRN.REGULATORY SERVICES CONSULTANT [address] [place] [address] [employer] 11/07/24 Briar Cutter Relationship Specialty Start Date End Date Kelly Read MD [address] [place] [address] PCP - General Family Medicine 02/12/20 Pb Day, [employer] SALES [employer] MANAGEMENT.REGULATORY SERVICES CONSULTANT [address] [place] [address] [employer] 11/07/24 Briar Cutter Relationship Specialty Start Date End Date Kelly Read MD [address] [place] [address] PCP - General Family Medicine 02/12/20 Pb Day [employer] SALES [employer] MANA[employer]EMENT.REGULATORY SERVICES CONSULTANT [address] [place] [address] [employer] 11/07/24 Briar Cutter Relationship Specialty Start Date End Date Kelly Read MD [address] [place] [address] PCP - General Family Medicine 02/12/20 Pb Day APRN.REGULATORY SERVICES CONSULTANT [address] [place] [address] [employer] 11/07/24 Briar Cutter Relationship Specialty Start Date End Date Kelly Read MD [address] [place] [address] PCP - General Family Medicine 02/12/20 Pb Day APRN.REGULATORY SERVICES CONSULTANT [address] [place] [address] [employer] 11/07/24 Briar Cutter Relationship Specialty Start Date End Date Kelly Read MD [address] [place] [address] PCP - General Family Medicine 02/12/20 Pb Day, [employer] SALES [employer] MANAGEMENT.REGULATORY SERVICES CONSULTANT [address] [place] [address] [employer] [facility] 11/07/24 Briar Cutter Relationship Specialty Start Date End Date Kelly Read MD [address] [place] [address] PCP - General Family Medicine 02/12/20 Pb Day, [employer] SAL[employer] MANAGEMENT.REGULATORY SERVICES CONSULTANT [address] [place] [address] [employer] Modeler Family [facility] 11/07/24 INFORMATION SOURCE (unrecogn ized section and content) DATE CREATED AUTHOR 03/27/2022 [facility] DATE CREATED AUTHOR AUTHOR'S ORGANIZ ATION 08/31/2025 [facility] DATE CREATED AUTHOR AUTHOR'S ORGANIZ ATION 09/13/2025 [facility] FOR RECORDS PERTAINING TO PATIENTS WHO ARE OR HAVE BEEN ENROLLED IN A CHEMICAL DEPENDENCY/SUBSTANCEABUSE PROGRAM, SOME INFORMATION MAY BE OMITTED. This clinical summary was aggregated from multiple sources. Caution should be exercised in using it in the provision of clinical care. This summary normalizes information from multiple sources, and as a consequence, information in this document may materially change the coding, format and clinical context of patient data. In addition, data may be omitted in some cases. CLINICAL DECISIONS SHOULD BE BASED ON THE PRIMARY CLINICAL RECORDS. [facility]. provides no warranty or guarantee of the accuracy or completeness of information in this document.
[2025-09-14 00:30] VITALS: PULSE 74; RESP 16
[2025-09-14 00:45] VITALS: PULSE 64; RESP 16
[2025-09-14 00:50] LABS: AST(SGOT) 27 U/L (<=31); Alanine Aminotransfer ALT/SGPT 20 U/L (<=34); Albumin, Serum 4.5 g/dL (3.5-5.0); Alkaline Phosphatase 64 U/L (35-104); Anion Gap 13 (5-15); BUN 11 mg/dL (4-19); BUN/Creat Ratio 14.8 RATIO (10-20); Calcium,Total 9.8 mg/dL (7.6-11.0); Carbon Dioxide 22.8 mmol/L (21.0-32.0); Chloride 102 mmol/L (98-108); Estimated Creatinine Clearance 79.67 ml/min (50-250); Globulin 3.1 g/dL (2.2-4.2); Glucose 85 mg/dL (70-99); Lipase 92 U/L (13-75); Potassium 3.6 mmol/L (3.3-5.1); Troponin T High Sensitivity < 6 ng/L (<=14)
[2025-09-14 01:00] VITALS: BP 151/102
[2025-09-14 01:47] VITALS: BP 132/71; PULSE 89; RESP 16; TEMP 36.5; O2SAT 97
== END 2025-09-14 01:49 | disposition home or self-care (01) ==
PROVIDERS: Emergency Provider Emergency Medicine; PCP Family Medicine; Visit Provider Emergency Medicine
DX: R10.13 Epigastric pain (principal); J06.9 Acute upper respiratory infection, unspecified; I10 Essential (primary) hypertension; R74.8 Abnormal levels of other serum enzymes; F17.200 Nicotine dependence, unspecified, uncomplicated; Z79.899 Other long term (current) drug therapy; K21.9 Gastro-esophageal reflux disease without esophagitis; R42 Dizziness and giddiness; R11.2 Nausea with vomiting, unspecified; R05.9 Cough, unspecified
CPT/HCPCS: 71046; 80053; 83690; 84484; 85025; 93005; 96374; 99284; A4216; J2405